=== PATIENT | female | born 1940 | race Hispanic/Latino ===

== ENCOUNTER 2020-10-07 11:30 | Inpatient (IN) | payer MEDICARE ==
[2020-10-07 12:50] LABS: #Eosinphils 0.1 thou/uL (0.0-0.7); #Lymphocytes 0.5 thou/uL (1.20-3.40); #Monocytes 0.5 thou/uL (0.11-0.59); #Neutrophils 10.6 thou/uL (1.40-6.50); %Basophils 0.1 % (0.0-1.0); %Eosinophils 0.4 % (0.0-10.0); %Lymphocytes 4.2 % (21.0-51.0); %Monocytes 4.7 % (0.0-10.0); %Neutrophils 90.6 % (42.0-75.0); Hemoglobin 12.8 g/dL (12.0-16.0); Mean Corpuscular Hemoglobin 28.3 pg (27.0-31.0); Mean Corpuscular Volume 88.4 fL (78.0-98.0); Mean Platelet Volume 7.5 fL (7.4-10.4); Platelet Count 241 thou/uL (130-400); RBC Distribution Width 12.4 % (11.5-14.5); Red Blood Cell (RBC) Count 4.51 mill/uL (4.20-5.40); White Blood Cell (WBC) Count 11.7 thou/uL (4.8-10.8)
[2020-10-07 13:03] LABS: ALT (SGPT) 11 U/L (8-55); AST (SGOT) 30 U/L (5-34); Albumin 3.1 g/dL (3.4-4.8); Alkaline Phosphatase 52 U/L (40-110); Anion Gap 14 mmol/L (10-20); BUN (Urea Nitrogen) 8 mg/dL (9.8-20.1); Calc. Creatinine Clearance 0 mL/min (70-130); Calcium 8.6 mg/dL (7.8-10.44); Carbon Dioxide 25 mmol/L (23-31); Chloride 98 mmol/L (98-107); Globulin 3.8 g/dL (2.4-3.5); Glucose 197 mg/dL (83-110); Magnesium 1.9 mg/dL (1.6-2.6); Potassium 3.5 mmol/L (3.5-5.1); Protein, Total 6.9 g/dL (6.0-8.3); Sodium 133 mmol/L (136-145)
--- NOTE | 2020-10-07 13:08 | RAD ---
XR Chest 1 View Portable History: Cough Comparison: Radiograph 2014 Findings: Extensive peripheral and perihilar airspace opacities. No pneumothorax. Heart size upper li mits of normal. No acute osseous abnormality. Impression: Commonly report imaging findings of high-grade Covid-19 pneumonia.
[2020-10-07] MEDS ORDERED: Azithromycin 500 MG VIAL ONE (13:44)
[2020-10-07] MEDS ORDERED: Acetaminophen 325 MG TAB ONE (13:44)
[2020-10-07] MEDS ORDERED: cefTRIAXone\\ROCEPHIN 2 GM VIAL ONE (13:44)
[2020-10-07] MEDS ORDERED: Dexamethasone 10 MG/ML VIAL ONE (15:16)
[2020-10-07 15:39] LABS: Lactic Acid 1.2 mmol/L (0.5-2.2)
--- NOTE | 2020-10-07 16:03 | PDOC.HHP ---
Hospitalist HPI - History of Present Illness Covid, fatigue, shortness of breath History of Present Illness: The patient is a 80-year-old female who presented via the emergency department. Patient reports that she started feeling some mild headache and malaise in early August. She said she got tested and was initially negative but when her symptoms persisted she rechecked again on August 29 and was positive. She has been feeling ill since that time and has progressed somewhat. She has lost her taste and smell. She has had very poor appetite. She continues to have significant malaise and lethargy. She has shortness of breath and persistent low-grade fever. She reports she has felt better since being placed on the oxygen in the emergency department. Patient reports that she did see [facility] last week and was placed on a steroid taper and a azithromycin pack. She could not tell that it made any difference for her at all. ED Course: In the emergency department the patient was mildly tachycardic. Her O2 sat was 91% on room air she was subsequently placed on nasal cannula oxygen and her O2 sat was 95% and her pulse was 108. She received 2 g of Rocephin and azithromycin was also ordered although I have recommended that not be given. She also received 1 L of normal saline. Hospitalist ROS - Review of Systems Constitutional: reports: fever, weakness, malaise, other (Very poor appetite. Poor p.o. intake. She has been drinking water.). denies: chills, sweats Respiratory: reports: cough, dry, shortness of breath, SOB with excertion Cardiovascular: denies: chest pain, palpitations Gastrointestinal: reports: nausea. denies: vomiting, abdominal pain, diarrhea, constipation Genitourinary: denies: dysuria Neurological: reports: weakness All other systems reviewed; all pertinent +/- noted in HPI/Subj - Medication Medications: Olmesartan 40 mg p.o. daily Pravastatin 10 mg p.o. nightly Vitamin D3 2000 units p.o. daily Clonidine 0.1 mg p.o. twice daily Hospitalist History - Past Medical History Cardiac: reports: HTN, Hyperlipidemia - Past Surgical History Past Surgical History: reports: Cholecystectomy, Cataract Removal - Family History Family History: reports: cerebrovascular accident (Father) - Social History Smoking Status: Never smoker Alcohol: reports: None Drugs: reports: none Living Situation: With Family Other Social History: Full code. Her would be her surrogate decision maker should that be necessary. - Exam General Appearance: NAD, ill appearing (Modestly) Heart: RRR, no murmur, no gallops, no rubs, normal peripheral pulses Respiratory: no wheezes, no rales Respiratory - other findings: Harsh bibasilar rhonchi Gastrointestinal: soft, non-tender, non-distended, normal bowel sounds, no palpable masses Extremities: no cyanosis, no clubbing, no edema Skin: tenting (Very mild) Musculoskeletal: normal tone, generalized weakness Psychiatric: normal affect, normal behavior, A&O x 3 Hospitalist Results - Labs Result Diagrams: 10/07/20 12:25 10/07/20 12:25 Lab results: WBC 11.7 thou/uL (4.8-10.8) H 10/07/20 12:25 Hgb 12.8 g/dL (12.0-16.0) 10/07/20 12:25 Hct 39.9 % (36.0-47.0) 10/07/20 12:25 MCV 88.4 fL (78.0-98.0) 10/07/20 12:25 Plt Count 241 thou/uL (130-400) 10/07/20 12:25 Neutrophils % 90.6 % (42.0-75.0) H 10/07/20 12:25 Sodium 133 mmol/L (136-145) L 10/07/20 12:25 Potassium 3.5 mmol/L (3.5-5.1) 10/07/20 12:25 Chloride 98 mmol/L (98-107) 10/07/20 12:25 Carbon Dioxide 25 mmol/L (23-31) 10/07/20 12:25 BUN 8 mg/dL (9.8-20.1) L 10/07/20 12:25 Creatinine 0.70 mg/dL (0.6-1.1) 10/07/20 12:25 Glucose 197 mg/dL (83-110) H 10/07/20 12:25 Lactic Acid 1.2 mmol/L (0.5-2.2) 10/07/20 15:14 Calcium 8.6 mg/dL (7.8-10.44) 10/07/20 12:25 Total Bilirubin 1.0 mg/dL (0.2-1.2) 10/07/20 12:25 AST 30 U/L (5-34) 10/07/20 12:25 ALT 11 U/L (8-55) 10/07/20 12:25 Alkaline Phosphatase 52 U/L (40-110) 10/07/20 12:25 Troponin I 0.014 ng/mL (< 0.028) 10/07/20 12:25 Serum Total Protein 6.9 g/dL (6.0-8.3) 10/07/20 12:25 Albumin 3.1 g/dL (3.4-4.8) L 10/07/20 12:25 - Radiology Interpretation Chest x-ray Status: image reviewed by me, report reviewed by me (Typical Covid findings with peripheral infiltrates bilaterally) Hospitalist H&P A/P - Problem (1) Acute respiratory failure with hypoxia Code(s): J96.01 - ACUTE RESPIRATORY FAILURE WITH HYPOXIA Status: Acute (2) Pneumonia due to COVID-19 virus Code(s): U07.1 - COVID-19; J12.82 - PNEUMONIA DUE TO CORONAVIRUS DISEASE 2019 Status: Acute (3) Dysgeusia Code(s): R43.2 - PARAGEUSIA Status: Acute (4) Hypertension Code(s): I10 - ESSENTIAL (PRIMARY) HYPERTENSION Status: Acute (5) Hyperlipidemia Code(s): E78.5 - HYPERLIPIDEMIA, UNSPECIFIED Status: Acute - Plan Plan: Acute hypoxic respiratory failure secondary to COVID-19 pneumonia: Patient will be on supplemental oxygen. She is borderline for needing significant supplementation while at rest. Once the patient is on the floor will be able to ambulate her a bit and see what her numbers do. Continue Decadron 6 mg daily. Vitamin C, vitamin D, zinc. Was patient is 5 weeks past her positive test. Will check with ID regarding isolation. Given the fairly harsh findings of the rales in the bases of her lungs I am worried about possible pulmonary fibrosis. We will obtain CT of the chest without contrast. Follow inflammatory markers. Hypertension: Continue with her usual olmesartan and clonidine. Hyperlipidemia: Continue with pravastatin. DVT prophylaxis: Lovenox PUD prophylaxis: Given that she will be on the steroids will cover with PPI.
[2020-10-07] MEDS ORDERED: Albuterol 200 PUFF (6.7GM INHALER) INH PRN (16:11)
[2020-10-07 16:13] VITALS: BMI 23.7
[2020-10-07] MEDS: Sodium Chloride 0.9% 1,000 ML IV SCH (16:44)
[2020-10-07] MEDS ORDERED: Atorvastatin Calcium 10 MG TAB PO SCH (21:00)
[2020-10-07] MEDS: cloNIDine 0.1 MG TAB PO SCH (21:19)
[2020-10-08] MEDS: Cholecalciferol 1,000 UNITS (25 MCG) TAB PO SCH (08:13)
[2020-10-08] MEDS: Sodium Chloride 0.9% 1,000 ML IV SCH (08:13)
[2020-10-08] MEDS: cloNIDine 0.1 MG TAB PO SCH ×2 (08:13→20:57)
[2020-10-08] MEDS: Zinc Sulfate 220 MG CAP PO SCH (08:13)
[2020-10-08 08:17] LABS: #Lymphocytes 0.6 thou/uL (1.20-3.40); #Monocytes 0.5 thou/uL (0.11-0.59); #Neutrophils 6.9 thou/uL (1.40-6.50); %Basophils 0.1 % (0.0-1.0); %Eosinophils 0.1 % (0.0-10.0); %Lymphocytes 7.7 % (21.0-51.0); %Monocytes 5.8 % (0.0-10.0); %Neutrophils 86.4 % (42.0-75.0); Hemoglobin 11.5 g/dL (12.0-16.0); Mean Corpuscular HGB CONC 32.6 g/dL (32.0-36.0); Mean Corpuscular Hemoglobin 28.9 pg (27.0-31.0); Mean Corpuscular Volume 88.9 fL (78.0-98.0); Mean Platelet Volume 7.2 fL (7.4-10.4); Platelet Count 236 thou/uL (130-400); RBC Distribution Width 12.3 % (11.5-14.5); Red Blood Cell (RBC) Count 3.98 mill/uL (4.20-5.40)
[2020-10-08] MEDS: Losartan 25 MG TAB PO SCH (08:18)
[2020-10-08 08:35] LABS: Anion Gap 12 mmol/L (10-20); BUN (Urea Nitrogen) 10 mg/dL (9.8-20.1); Calc. Creatinine Clearance 77 mL/min (70-130); Calcium 8.3 mg/dL (7.8-10.44); Carbon Dioxide 24 mmol/L (23-31); Chloride 106 mmol/L (98-107); Glucose 129 mg/dL (83-110); Potassium 3.9 mmol/L (3.5-5.1); Sodium 138 mmol/L (136-145)
[2020-10-08] MEDS: Dexamethasone 6 MG in Sodium Chloride 0.9% 50 ML IVPB SCH (08:41)
[2020-10-08] MEDS ORDERED: hydrALAZINE 20 MG/ML VIAL SLOW IVP PRN (08:52)
[2020-10-08] MEDS ORDERED: Cepastat Lozenges 1 LOZ PO PRN (08:52)
[2020-10-08] MEDS ORDERED: Loratadine 10 MG TAB PO PRN (08:52)
[2020-10-08] MEDS ORDERED: Loperamide HCl 2 MG CAP PO PRN (08:52)
[2020-10-08] MEDS ORDERED: Sodium Chloride 0.65% Nasal 44 ML BOT EA NARE PRN (08:52)
[2020-10-08] MEDS ORDERED: GUAIFENESIN SF SOLN 200 MG/10 ML UDCUP PO PRN (08:52)
[2020-10-08] MEDS ORDERED: Ondansetron ODT 4 MG TAB PO PRN (08:52)
[2020-10-08] MEDS ORDERED: Ondansetron PF 4 MG/2 ML Vial IVP PRN (08:52)
[2020-10-08] MEDS ORDERED: Benzonatate 100 MG CAP PO PRN (08:52)
[2020-10-08] MEDS ORDERED: HYDROcodone/Acetaminophen 5/325 mg Tablet PO PRN (08:52)
[2020-10-08] MEDS ORDERED: Calcium Carbonate 500 MG ChewTAB PO PRN (08:52)
[2020-10-08] MEDS ORDERED: Bisacodyl 10 MG SUPP PR PRN (08:52)
[2020-10-08] MEDS ORDERED: Enoxaparin Sodium 40 MG/0.4 ML SYRINGE SC SCH ×2 (09:00→21:00)
[2020-10-08] MEDS ORDERED: Losartan 25 MG TAB PO SCH (09:00)
[2020-10-08] MEDS ORDERED: Ascorbic Acid 500 mg Chewable Tablet PO SCH (09:00)
[2020-10-08] MEDS ORDERED: Olmesartan 5 MG TAB PO SCH (09:00)
[2020-10-08] MEDS ORDERED: FLU VACC QS2020-21(65YR UP)/PF 240 MCG/0.7 ML SYRINGE IM ONE (09:00)
[2020-10-08] MEDS: Ascorbic Acid 500 mg Chewable Tablet PO SCH (09:01)
--- NOTE | 2020-10-08 11:51 | PDOC.HOSPP ---
- Subjective Encounter Date: 10/08/20 Encounter Time: 08:15 Subjective: Patient seen and examined bedside today, no overnight event, patient has subjective feeling weak and tired, - Objective Vital Signs & Weight: Vital Signs (12 hours) Temp Pulse Resp BP BP Pulse Ox 10/08/20 11:41 98.4 F 62 16 153/79 H 95 10/08/20 08:13 165/82 H 10/08/20 07:32 98.0 F 76 18 145/73 H 94 L Weight Weight 134 lb I&O: 10/07/20 10/08/20 10/09/20 06:59 06:59 06:59 Intake Total 540 240 Balance 540 240 Result Diagrams: 10/08/20 07:39 10/08/20 07:39 Radiology Reviewed by me: Yes EKG Reviewed by me: Yes Hospitalist ROS - Review of Systems Constitutional: reports: weakness, malaise Respiratory: reports: shortness of breath, SOB with excertion. denies: cough, dry, hemoptysis, pleuritic pain, sputum, wheezing, other Cardiovascular: denies: chest pain, palpitations, orthopnea, paroxysmal noc. dyspnea, edema, light headedness, other Gastrointestinal: denies: nausea, vomiting, abdominal pain, diarrhea, constipat ion, melena, hematochezia, other Genitourinary: denies: dysuria, frequency, incontinence, hematuria, retention, other Musculoskeletal: denies: neck pain, shoulder pain, arm pain, back pain, hand pain, leg pain, foot pain, other Skin: denies: rash, lesions, kobe, bruising, other - Medication Medications: Active Medications Generic Name Dose Route Start Last Admin Trade Name Marekq PRN Reason Stop Dose Admin Ascorbic Acid 1,000 mg 10/08/20 09:00 10/08/20 09:01 Ascorbic Acid 500 Mg Chewable Tablet PO Not Given DAILY MAY Cholecalciferol 1,000 units 10/08/20 09:00 10/08/20 08:13 Cholecalciferol 1,000 Units (25 Mcg) Tab PO 1,000 units DAILY MAY Administration Clonidine 0.1 mg 10/07/20 21:00 10/08/20 08:13 Clonidine 0.1 Mg Tab PO 0.1 mg BID MAY Administration Enoxaparin Sodium 40 mg 10/08/20 09:00 10/08/20 08:13 Enoxaparin Sodium 40 Mg/0.4 Ml Syringe SC 40 mg 0900 MAY Administration Dexamethasone 6 mg/ Sodium 50.6 mls @ 100 mls/hr 10/08/20 09:00 10/08/20 08:41 Chloride IVPB 50.6 mls DAILY MAY Administration Losartan Potassium 100 mg 10/08/20 09:00 10/08/20 08:18 Losartan 25 Mg Tab PO 100 mg DAILY MAY Administration Pantoprazole Sodium 40 mg 10/08/20 09:00 10/08/20 08:13 Pantoprazole 40 Mg Tab PO 40 mg DAILY MAY Administration Zinc Sulfate 220 mg 10/08/20 09:00 10/08/20 08:13 Zinc Sulfate 220 Mg Cap PO 220 mg DAILY MAY Administration - Exam General Appearance: NAD, awake alert Eye: PERRL, anicteric sclera ENT: normocephalic atraumatic, no oropharyngeal lesions Neck: supple, symmetric, no JVD, no thyromegaly Heart: RRR, no murmur, no gallops, no rubs Respiratory: no wheezes, no rales, no ronchi Respiratory - other findings: Bilateral coarse breath sound, Gastrointestinal: soft, non-tender, non-distended, normal bowel sounds Extremities: no cyanosis, no clubbing, no edema Skin: normal turgor, no lesions Neurological: no focal deficits Musculoskeletal: normal tone, normal strength Psychiatric: normal affect, normal behavior Hosp A/P (1) Pneumonia due to COVID-19 virus Code(s): U07.1 - COVID-19; J12.82 - PNEUMONIA DUE TO CORONAVIRUS DISEASE 2019 Status: Acute (2) Acute respiratory failure with hypoxia Code(s): J96.01 - ACUTE RESPIRATORY FAILURE WITH HYPOXIA Status: Acute (3) Elevated d-dimer Code(s): R79.89 - OTHER SPECIFIED ABNORMAL FINDINGS OF BLOOD CHEMISTRY Status: Acute (4) Hyperlipidemia Code(s): E78.5 - HYPERLIPIDEMIA, UNSPECIFIED Status: Chronic (5) Hypertension Code(s): I10 - ESSENTIAL (PRIMARY) HYPERTENSION Status: Chronic - Plan old records reviewed/req, respiratory therapy, DVT proph w/lovenox Patient has significantly elevated D-dimer, will obtain CT angio chest to rule out thromboembolic disorder, will increase Lovenox 40 mg subcu twice daily, change to inpatient status, discontinue IV fluid, continue dexamethasone, I have reconciled her home medication, I have discussed with the patient that she needs to ambulate in her room and we need to do oxygen challenge test, patient is not a candidate for remdesivir therapy because of long duration of illness, continue vitamin supplementation, monitor inflammatory markers
--- NOTE | 2020-10-08 12:34 | CT ---
CT ANGIOGRAM THORAX WITH IV CONTRAST AND 3-D RECONSTRUCTIONS CLINICAL INDICATION: Hypoxia, shortness of breath. Covid positive. COMPARISON: None FINDINGS: Pulmonary arteries: No filling defects are seen in the pulmonary arteries to suggest a pulmonary embo naila. Aorta: Vascular calcifications are seen in thoracic aorta. The thoracic aorta is normal in caliber wi thout evidence of an aortic dissection. Lungs: There are diffuse scattered groundglass densities with coalescence of groundglass densities se en throughout the lungs bilaterally most suggestive of viral pneumonitis such as Covid 19. Trace pleural effusions versus pleural thickening are seen posteriorly. Visualized large airways appear pat ent. Mediastinum: The heart is mildly enlarged. Coronary artery calcifications are seen. There are mildly prominent lymph nodes seen within the mediastinum with largest lymph node seen in a precarinal location measuring 1 cm in short axis dimension which are overall nonspecific but may be reactive in origin. Calcified subcarinal lymph node is seen. Thyroid gland: Artifact through level of thyroid gland limits assessment, but no thyroid nodule is ap preciated involving the visualized thyroid gland. Osseous structures: Degenerative changes noted in the spine. No suspicious lytic or sclerotic osseous lesion is seen. Chest wall: No abnormality visualized. Upper abdomen: There is mild dilatation of the extrahepatic common duct likely related to reservoir e ffect secondary to reported history of prior cholecystectomy. IMPRESSION: 1. Covid pneumonia. 2. Trace bilateral pleural effusions versus pleural thickening. 3. Mild cardiomegaly. 4. No CT evidence of a pulmonary embolus.
[2020-10-08] MEDS ORDERED: Iopamidol-370 76% 500 ML 1 ML ONE (14:06)
[2020-10-08] MEDS: Atorvastatin Calcium 10 MG TAB PO SCH (20:58)
[2020-10-09] MEDS: Dexamethasone 6 MG in Sodium Chloride 0.9% 50 ML IVPB SCH (08:10)
[2020-10-09] MEDS: Losartan 25 MG TAB PO SCH (08:13)
[2020-10-09] MEDS: cloNIDine 0.1 MG TAB PO SCH ×2 (08:13→20:49)
[2020-10-09] MEDS: Ascorbic Acid 500 mg Chewable Tablet PO SCH (08:14)
[2020-10-09] MEDS: Zinc Sulfate 220 MG CAP PO SCH (08:14)
[2020-10-09] MEDS: Cholecalciferol 1,000 UNITS (25 MCG) TAB PO SCH (08:14)
[2020-10-09] MEDS ORDERED: Apixaban 5 MG TAB PO SCH (09:00)
--- NOTE | 2020-10-09 11:00 | PDOC.HOSPP ---
- Subjective Encounter Date: 10/09/20 Encounter Time: 08:35 Subjective: Patient seen and examined. No new complaints. No overnight events - Objective Vital Signs & Weight: Vital Signs (12 hours) Temp Pulse Resp BP BP Pulse Ox 10/09/20 08:13 141/63 H 10/09/20 07:46 100 10/09/20 07:40 97.8 F 54 L 16 141/63 H 100 10/09/20 04:00 97.8 F 52 L 18 149/71 H 97 10/09/20 00:00 98.0 F 75 18 169/81 H 92 L Weight Weight 134 lb I&O: 10/08/20 10/09/20 10/10/20 06:59 06:59 06:59 Intake Total 540 1370 Balance 540 1370 Result Diagrams: 10/08/20 07:39 10/08/20 07:39 Hospitalist ROS - Review of Systems Constitutional: reports: weakness, malaise. denies: fever, chills, sweats, other ENT: denies: ear pain, ear discharge, nose pain, nose discharge, nose congestion, mouth pain, mouth swelling, throat pain, throat swelling, other Respiratory: reports: SOB with excertion. denies: cough, dry, shortness of breath, hemoptysis, pleuritic pain, sputum, wheezing, other Cardiovascular: denies: chest pain, palpitations, orthopnea, paroxysmal noc. dyspnea, edema, light headedness, other Gastrointestinal: denies: nausea, vomiting, abdominal pain, diarrhea, constipation, melena, hematochezia, other Genitourinary: denies: dysuria, frequency, incontinence, hematuria, retention, other Musculoskeletal: denies: neck pain, shoulder pain, arm pain, back pain, hand pain, leg pain, foot pain, other Skin: denies: rash, lesions, kobe, bruising, other - Medication Medications: Active Medications Generic Name Dose Route Start Last Admin Trade Name Freq PRN Reason Stop Dose Admin Ascorbic Acid 1,000 mg 10/08/20 09:00 10/09/20 08:14 Ascorbic Acid 500 Mg Chewable Tablet PO 1,000 mg DAILY MAY Administration Atorvastatin Calcium 10 mg 10/08/20 21:00 10/08/20 20:58 Atorvastatin Calcium 10 Mg Tab PO 10 mg HS MAY Administration Cholecalciferol 1,000 units 10/08/20 09:00 10/09/20 08:14 Cholecalciferol 1,000 Units (25 Mcg) Tab PO 1,000 units DAILY MAY Administration Clonidine 0.1 mg 10/07/20 21:00 10/09/20 08:13 Clonidine 0.1 Mg Tab PO 0.1 mg BID MAY Administration Dexamethasone 6 mg/ Sodium 50.6 mls @ 100 mls/hr 10/08/20 09:00 10/09/20 08:10 Chloride IVPB 50.6 mls DAILY MAY Administration Losartan Potassium 100 mg 10/08/20 09:00 10/09/20 08:13 Losartan 25 Mg Tab PO 100 mg DAILY MAY Administration Pantoprazole Sodium 40 mg 10/08/20 09:00 10/09/20 08:14 Pantoprazole 40 Mg Tab PO 40 mg DAILY MAY Administration Zinc Sulfate 220 mg 10/08/20 09:00 10/09/20 08:14 Zinc Sulfate 220 Mg Cap PO 220 mg DAILY MAY Administration - Exam General Appearance: NAD, awake alert Eye: PERRL, anicteric sclera ENT: normocephalic atraumatic, no oropharyngeal lesions Neck: supple, symmetric, no JVD, no thyromegaly Heart: RRR, no murmur, no gallops, no rubs Respiratory: no wheezes, no rales, no ronchi Gastrointestinal: soft, non-tender, non-distended, normal bowel sounds Extremities: no cyanosis, no clubbing, no edema Skin: normal turgor, no lesions Neurological: no focal deficits Musculoskeletal: normal tone, normal strength Psychiatric: normal affect, normal behavior Hosp A/P (1) Pneumonia due to COVID-19 virus Code(s): U07.1 - COVID-19; J12.82 - PNEUMONIA DUE TO CORONAVIRUS DISEASE 2019 Status: Acute (2) Acute respiratory failure with hypoxia Code(s): J96.01 - ACUTE RESPIRATORY FAILURE WITH HYPOXIA Status: Acute (3) Elevated d-dimer Code(s): R79.89 - OTHER SPECIFIED ABNORMAL FINDINGS OF BLOOD CHEMISTRY Status: Acute (4) Hyperlipidemia Code(s): E78.5 - HYPERLIPIDEMIA, UNSPECIFIED Status: Chronic (5) Hypertension Code(s): I10 - ESSENTIAL (PRIMARY) HYPERTENSION Status: Chronic - Plan old records reviewed/req, respiratory therapy CT angio negative for PE, because of elevated D-dimer we will start Eliquis 2.5 mg twice daily for 1 month, patient needs oxygen because of her oxygen saturation drops to 85% after exertion, will consult case briefer for oxygen arrangement, Patient is subjectively feeling weak, continue vitamin supplementation, continue dexamethasone, continue symptomatic treatment,
[2020-10-09] MEDS: Atorvastatin Calcium 10 MG TAB PO SCH (20:49)
[2020-10-09] MEDS: Apixaban 2.5 MG TAB PO SCH (20:49)
[2020-10-10] MEDS: Losartan 25 MG TAB PO SCH (08:15)
[2020-10-10] MEDS: Apixaban 2.5 MG TAB PO SCH ×2 (08:15→20:04)
[2020-10-10] MEDS: cloNIDine 0.1 MG TAB PO SCH ×2 (08:15→20:04)
[2020-10-10] MEDS: Ascorbic Acid 500 mg Chewable Tablet PO SCH (08:15)
[2020-10-10] MEDS: Zinc Sulfate 220 MG CAP PO SCH (08:16)
[2020-10-10] MEDS: Cholecalciferol 1,000 UNITS (25 MCG) TAB PO SCH (08:16)
[2020-10-10] MEDS: Dexamethasone 6 MG in Sodium Chloride 0.9% 50 ML IVPB SCH (08:16)
--- NOTE | 2020-10-10 10:57 | PDOC.DS.DS ---
Provider - Provider Date of Admission: 10/07/20 16:02 Admitting Provider: Edgardo Damian MD Consultations: Pulmonary, Other Primary Care Physician: Diego Yi DO Course - Hospital Course Hospital Course: History on admission- The patient is a 80-year-old female who presented via the emergency department. Patient reports that she started feeling some mild headache and malaise in early August. She said she got tested and was initially negative but when her symptoms persisted she rechecked again on August 29 and was positive. She has been feeling ill since that time and has progressed somewhat. She has lost her taste and smell. She has had very poor appetite. She continues to have significant malaise and lethargy. She has shortness of breath and persistent low-grade fever. She reports she has felt better since being placed on the oxygen in the emergency department. Patient reports that she did see [facility] last week and was placed on a steroid taper and a azithromycin pack. She could not tell that it made any difference for her at all. ED Course: In the emergency department the patient was mildly tachycardic. Her O2 sat was 91% on room air she was subsequently placed on nasal cannula oxygen and her O2 sat was 95% and her pulse was 108. She received 2 g of Rocephin and azithromycin was also ordered although I have recommended that not be given. She also received 1 L of normal saline. On admission patient had significantly elevated D-dimer, so we did a CT angiography which was negative for PE but did showing bilateral infiltration consistent with Covid pneumonia, we started Eliquis therapy to prevent thromboe mbolic for her, patient was not qualified for remdesivir therapy based on her symptoms onset, we treated her with vitamin supplementation, dexamethasone, While in hospital we did oxygen challenge test and she was qualified for home oxygen, with help of employment case manager we arranged home oxygen on discharge, we have also provided Eliquis for at least 1 month to prevent thromboembolic event in view of inflammatory status due to Covid, patient will continue vitamin supplementation and dexamethasone to finish for total 10 days. Patient was plan for discharge and on the same day she had her condition started deteriorating, her oxygen saturation was not maintained with 3 L nasal cannula oxygen so we canceled her discharge, we observed overnight in next day and during nighttime patient developed high fever, she was requiring high flow oxygen, her condition rapidly deteriorated, Patient was not maintaining her oxygen saturations with high flow oxygen as well as she was tachycardic and tachypneic so we transferred her to [facility], we started on BiPAP, we did chest x-ray which showed Covid pneumonia, she has leukocytosis, patient was started on antibiotic as well as Lasix, Patient was not tolerating BiPAP so patient decided herself to be a DNR, patient was kept on high flow but with high flow oxygen herself oxygen saturation was not maintained, and patient was not tolerating BiPAP, Resuscitation Status: 10/07/20 15:27 Resuscitation Status Routine Resuscitation Status: FULL: Full Resuscitation - Labs Lab Results: 10/08/20 07:39 10/08/20 07:39 Abnormal Lab Results - Last 48 hrs 10/08/20 13:29: D-Dimer 14.45 H 10/08/20 14:57: C-Reactive Protein 12.71 H Microbiology - Entire Visit 10/07/20 13:25 Venous blood - Right Arm Blood Culture - Preliminary NO GROWTH AT 48 HOURS 10/07/20 13:25 Venous blood - Right Arm Blood Culture - Preliminary NO GROWTH AT 48 HOURS - Diagnostic Interpretation Other Additional comments: Chest x-ray on admission showed high-grade COVID-[address] angiography showed no evidence of pulmonary embolism but it did show bilateral pleural effusion and Covid pneumonia - Physical Exam Vitals: Vital Signs (12 hours) Temp Pulse Resp BP BP Pulse Ox 10/10/20 08:15 141/63 H 10/10/20 07:09 97.8 F 52 L 15 158/53 H 94 L 10/10/20 04:59 97.6 F 63 18 166/78 H 96 10/10/20 04:00 97.6 F 63 18 166/78 H 96 10/10/20 01:03 98.1 F 60 18 160/76 H 96 10/10/20 00:00 98.1 F 60 18 160/76 H 96 Weight Weight 134 lb Physical Exam: The patient was seen and examined on the day of discharge. Problem - Problem (1) Pneumonia due to COVID-19 virus Code(s): U07.1 - COVID-19; J12.82 - PNEUMONIA DUE TO CORONAVIRUS DISEASE 2019 Status: Acute (2) Acute respiratory failure with hypoxia Code(s): J96.01 - ACUTE RESPIRATORY FAILURE WITH HYPOXIA Status: Acute (3) Elevated d-dimer Code(s): R79.89 - OTHER SPECIFIED ABNORMAL FINDINGS OF BLOOD CHEMISTRY Status: Acute (4) Hyperlipidemia Code(s): E78.5 - HYPERLIPIDEMIA, UNSPECIFIED Status: Chronic (5) Hypertension Code(s): I10 - ESSENTIAL (PRIMARY) HYPERTENSION Status: Chronic Qualifiers: Hypertension type: essential hypertension Qualified Code(s): I10 - Essenti al (primary) hypertension Plan - Discharge Medications Prescriptions: Albuterol Sulfate [Proventil Hfa] 2 puff INH [id number] PRN #1 aer PRN Reason: Wheezing Dexamethasone 6 mg PO DAILY #7 tablet Apixaban [Eliquis] 2.5 mg PO BID #60 tab Benzonatate [Tessalon] 100 mg PO Q6H PRN #30 cap PRN Reason: Cough Ascorbic Acid [Vitamin C] 1,000 mg PO DAILY #30 tab Zinc Sulfate 220 mg PO DAILY #14 cap Home Medications: Medication Instructions Recorded Confirmed Type Cholecalciferol (Vitamin D3) 1 tab PO DAILY 10/07/20 10/07/20 History [Vitamin D3] Olmesartan Medoxomil [Benicar] 1 tab PO DAILY 10/07/20 10/07/20 History Pravastatin Sodium [Pravachol] 1 tab PO DAILY 10/07/20 10/07/20 History cloNIDine HCl 1 tab PO BID 10/07/20 10/07/20 History Albuterol Sulfate [Proventil Hfa] 2 puff INH [id number] PRN #1 aer 10/09/20 Rx Apixaban [Eliquis] 2.5 mg PO BID #60 tab 10/09/20 Rx Ascorbic Acid [Vitamin C] 1,000 mg PO DAILY #30 tab 10/09/20 Rx Benzonatate [Tessalon] 100 mg PO Q6H PRN #30 cap 10/09/20 Rx Dexamethasone 6 mg PO DAILY #7 tablet 10/09/20 Rx Zinc Sulfate 220 mg PO DAILY #14 cap 10/09/20 Rx Allergies: No Known Allergies Allergy (Verified 10/07/20 16:19) - Discharge Instructions Discharge Instructions:: YOUR PRESCRIPTIONS WERE SENT TO: [facility] [address] [place] [id number] Activity:: Activity as Tolerated Nourishment:: Heart Healthy Diet Therapies:: Not Applicable Equipment/Supplies:: Oxygen IV Therapy:: Not Applicable - Follow up Plan Referrals: [facility] [Outside] Davon Yi DO [Primary Care Provider] - Disposition: HOME Quality - Care Measures CORE MEASURES:: N/A
--- NOTE | 2020-10-10 12:56 | PDOC.HOSPP ---
- Subjective Encounter Date: 10/10/20 Encounter Time: 12:55 Subjective: Patient seen and examined earlier this morning, patient was reevaluated this afternoon, patient did walk to bathroom and even after her 3 L oxygen patient started dropping her oxygen saturation to 85 and below, patient was taking longer than expected time to recover, patient was worried about going home with this condition, initially before the discharge order so because of her ongoing hypoxia we canceled her discharge, - Objective Vital Signs & Weight: Vital Signs (12 hours) Temp Pulse Resp BP BP Pulse Ox 10/10/20 08:15 141/63 H 10/10/20 07:09 97.8 F 52 L 15 158/53 H 94 L 10/10/20 04:59 97.6 F 63 18 166/78 H 96 10/10/20 04:00 97.6 F 63 18 166/78 H 96 10/10/20 01:03 98.1 F 60 18 160/76 H 96 Weight Weight 134 lb I&O: 10/09/20 10/10/20 10/11/20 06:59 06:59 06:59 Intake Total 1370 Balance 1370 Result Diagrams: 10/08/20 07:39 10/08/20 07:39 Hospitalist ROS - Review of Systems Constitutional: reports: weakness, malaise Eyes: denies: pain, vision change, conjunctivae inflammation, eyelid infla mmation, redness, other ENT: denies: ear pain, ear discharge, nose pain, nose discharge, nose congestion, mouth pain, mouth swelling, throat pain, throat swelling, other Respiratory: reports: shortness of breath, SOB with excertion. denies: cough, d ry, hemoptysis, pleuritic pain, sputum, wheezing, other Cardiovascular: denies: chest pain, palpitations, orthopnea, paroxysmal noc. dyspnea, edema, light headedness, other Gastrointestinal: denies: nausea, vomiting, abdominal pain, diarrhea, constip ation, melena, hematochezia, other Genitourinary: denies: dysuria, frequency, incontinence, hematuria, retention, other Musculoskeletal: denies: neck pain, shoulder pain, arm pain, back pain, hand pain, leg pain, foot pain, other - Medication Medications: Active Medications Generic Name Dose Route Start Last Admin Trade Name Freq PRN Reason Stop Dose Admin Apixaban 2.5 mg 10/09/20 21:00 10/10/20 08:15 Apixaban 2.5 Mg Tab PO 2.5 mg BID MAY Administration Ascorbic Acid 1,000 mg 10/08/20 09:00 10/10/20 08:15 Ascorbic Acid 500 Mg Chewable Tablet PO 1,000 mg DAILY MAY Administration Atorvastatin Calcium 10 mg 10/08/20 21:00 10/09/20 20:49 Atorvastatin Calcium 10 Mg Tab PO 10 mg HS MAY Administration Cholecalciferol 1,000 units 10/08/20 09:00 10/10/20 08:16 Cholecalciferol 1,000 Units (25 Mcg) Tab PO 1,000 units DAILY MAY Administration Clonidine 0.1 mg 10/07/20 21:00 10/10/20 08:15 Clonidine 0.1 Mg Tab PO 0.1 mg BID MAY Administration Dexamethasone 6 mg/ Sodium 50.6 mls @ 100 mls/hr 10/08/20 09:00 10/10/20 0 8:16 Chloride IVPB 50.6 mls DAILY MAY Administration Losartan Potassium 100 mg 10/08/20 09:00 10/10/20 08:15 Losartan 25 Mg Tab PO 100 mg DAILY MAY Administration Ondansetron HCl 4 mg 10/08/20 08:52 10/09/20 12:14 Ondansetron Odt 4 Mg Tab PO 4 mg Q6H PRN Administration Nausea/Vomiting Pantoprazole Sodium 40 mg 10/08/20 09:00 10/10/20 08:15 Pantoprazole 40 Mg Tab PO 40 mg DAILY MAY Administration Zinc Sulfate 220 mg 10/08/20 09:00 10/10/20 08:16 Zinc Sulfate 220 Mg Cap PO 220 mg DAILY MAY Administration - Exam General Appearance: NAD, awake alert Eye: PERRL, anicteric sclera ENT: normocephalic atraumatic, no oropharyngeal lesions Neck: supple, symmetric, no JVD, no thyromegaly Heart: RRR, no murmur, no gallops, no rubs Respiratory: no wheezes, no rales, no ronchi, no tachypnea Gastrointestinal: soft, non-tender, non-distended, normal bowel sounds Extremities: no cyanosis, no clubbing, no edema Skin: normal turgor, no lesions Neurological: no focal deficits Musculoskeletal: normal tone, normal strength Psychiatric: normal affect, normal behavior Hosp A/P (1) Pneumonia due to COVID-19 virus Code(s): U07.1 - COVID-19; J12.82 - PNEUMONIA DUE TO CORONAVIRUS DISEASE 2019 Status: Acute (2) Acute respiratory failure with hypoxia Code(s): J96.01 - ACUTE RESPIRATORY FAILURE WITH HYPOXIA Status: Acute (3) Elevated d-dimer Code(s): R79.89 - OTHER SPECIFIED ABNORMAL FINDINGS OF BLOOD CHEMISTRY Status: Acute (4) Hyperlipidemia Code(s): E78.5 - HYPERLIPIDEMIA, UNSPECIFIED Status: Chronic (5) Hypertension Code(s): I10 - ESSENTIAL (PRIMARY) HYPERTENSION Status: Chronic - Plan old records reviewed/req, respiratory therapy Continue Eliquis for prevention of thromboembolic disorder Continue dexamethasone Unfortunately patient's oxygen saturation started dropping even with 3 L oxygen, and patient is not feeling good enough to go home today again, We will continue to monitor,
[2020-10-10] MEDS: Atorvastatin Calcium 10 MG TAB PO SCH (20:04)
[2020-10-11] MEDS: Dexamethasone 6 MG in Sodium Chloride 0.9% 50 ML IVPB SCH (07:42)
[2020-10-11] MEDS: Zinc Sulfate 220 MG CAP PO SCH (07:42)
[2020-10-11] MEDS: Losartan 25 MG TAB PO SCH (07:43)
[2020-10-11] MEDS: Apixaban 2.5 MG TAB PO SCH ×2 (07:43→21:32)
[2020-10-11] MEDS: Ascorbic Acid 500 mg Chewable Tablet PO SCH (07:43)
[2020-10-11] MEDS: Cholecalciferol 1,000 UNITS (25 MCG) TAB PO SCH (07:43)
[2020-10-11] MEDS: Acetaminophen 325 MG TAB PO PRN (07:43)
[2020-10-11] MEDS: cloNIDine 0.1 MG TAB PO SCH ×2 (07:44→21:32)
[2020-10-11 09:13] LABS: Band 1 % (5-11); Hemoglobin 11.3 g/dL (12.0-16.0); Lymphocytes 6 % (21-51); MDiff Complete? YES; Mean Corpuscular HGB CONC 34.4 g/dL (32.0-36.0); Mean Corpuscular Hemoglobin 29.8 pg (27.0-31.0); Mean Corpuscular Volume 86.6 fL (78.0-98.0); Mean Platelet Volume 6.5 fL (7.4-10.4); Monocytes 1 % (0-10); Neutrophil 92 % (42-75); Platelet Count 233 thou/uL (130-400); RBC Distribution Width 12.6 % (11.5-14.5); White Blood Cell (WBC) Count 18.2 thou/uL (4.8-10.8)
[2020-10-11 09:21] LABS: ALT (SGPT) 16 U/L (8-55); AST (SGOT) 39 U/L (5-34); Albumin 2.6 g/dL (3.4-4.8); Alkaline Phosphatase 51 U/L (40-110); Anion Gap 14 mmol/L (10-20); BUN (Urea Nitrogen) 9 mg/dL (9.8-20.1); Bilirubin, Total 0.9 mg/dL (0.2-1.2); Calc. Creatinine Clearance 64 mL/min (70-130); Calcium 7.7 mg/dL (7.8-10.44); Carbon Dioxide 22 mmol/L (23-31); Chloride 101 mmol/L (98-107); Globulin 3.3 g/dL (2.4-3.5); Glucose 111 mg/dL (83-110); Potassium 3.9 mmol/L (3.5-5.1); Protein, Total 5.9 g/dL (6.0-8.3); Sodium 133 mmol/L (136-145)
--- NOTE | 2020-10-11 10:18 | PDOC.HOSPP ---
- Subjective Encounter Date: 10/11/20 Encounter Time: 08:45 Subjective: Last night whenever patient was exerting herself her oxygen saturation was dropping significantly, this was also happened yesterday so we have to cancel her discharge, this morning patient has a low oxygen saturation and requiring high flow oxygen and she has fever, patient is not feeling good today, patient has deterioration since yesterday, - Objective Vital Signs & Weight: Vital Signs (12 hours) Temp Pulse Resp BP BP Pulse Ox 10/11/20 09:48 93 L 10/11/20 08:00 100.1 F H 105 H 22 H 144/76 H 94 L 10/11/20 07:44 146/89 H 10/11/20 07:43 102.6 F H 10/11/20 07:07 102.2 F H 116 H 18 146/89 H 93 L 10/11/20 04:42 98.2 F 111 H 18 163/87 H 88 L 10/11/20 03:32 93 20 90 L 10/11/20 00:16 77 91 L 10/10/20 23:18 77 92 L Weight Weight 134 lb Result Diagrams: 10/11/20 08:48 10/11/20 08:48 Hospitalist ROS - Review of Systems Constitutional: reports: fever, weakness, malaise Eyes: denies: pain, vision change, conjunctivae inflammation, eyelid inflammation, redness, other ENT: denies: ear pain, ear discharge, nose pain, nose discharge, nose congestion, mouth pain, mouth swelling, throat pain, throat swelling, other Respiratory: reports: shortness of breath, SOB with excertion. denies: cough, dry, hemoptysis, pleuritic pain, sputum, wheezing, other Cardiovascular: denies: chest pain, palpitations, orthopnea, paroxysmal noc. dyspnea, edema, light headedness, other Gastrointestinal: denies: nausea, vomiting, abdominal pain, diarrhea, constipation, melena, hematochezia, other Genitourinary: denies: dysuria, frequency, incontinence, hematuria, retention, other Musculoskeletal: denies: neck pain, shoulder pain, arm pain, back pain, hand pain, leg pain, foot pain, other - Medication Medications: Active Medications Generic Name Dose Route Start Last Admin Trade Name Freq PRN Reason Stop Dose Admin Acetaminophen 650 mg 10/07/20 15:27 10/11/20 07:43 Acetaminophen 325 Mg Tab PO 650 mg Q4H PRN Administration Headache/Fever/Mild Pain (1-3) Apixaban 2.5 mg 10/09/20 21:00 10/11/20 07:43 Apixaban 2.5 Mg Tab PO 2.5 mg BID MAY Administration Ascorbic Acid 1,000 mg 10/08/20 09:00 10/11/20 07:43 Ascorbic Acid 500 Mg Chewable Tablet PO 1,000 mg DAILY MAY Administration Atorvastatin Calcium 10 mg 10/08/20 21:00 10/10/20 20:04 Atorvastatin Calcium 10 Mg Tab PO 10 mg HS MAY Administration Cholecalciferol 1,000 units 10/08/20 09:00 10/11/20 07:43 Cholecalciferol 1,000 Units (25 Mcg) Tab PO 1,000 units DAILY MAY Administration Clonidine 0.1 mg 10/07/20 21:00 10/11/20 07:44 Clonidine 0.1 Mg Tab PO 0.1 mg BID MAY Administration Dexamethasone 6 mg/ Sodium 50.6 mls @ 100 mls/hr 10/08/20 09:00 10/11/20 07:42 Chloride IVPB 50.6 mls DAILY MAY Administration Losartan Potassium 100 mg 10/08/20 09:00 10/11/20 07:43 Losartan 25 Mg Tab PO 100 mg DAILY MAY Administration Ondansetron HCl 4 mg 10/08/20 08:52 10/09/20 12:14 Ondansetron Odt 4 Mg Tab PO 4 mg Q6H PRN Administration Nausea/Vomiting Pantoprazole Sodium 40 mg 10/08/20 09:00 10/11/20 07:42 Pantoprazole 40 Mg Tab PO 40 mg DAILY MAY Administration Zinc Sulfate 220 mg 10/08/20 09:00 10/11/20 07:42 Zinc Sulfate 220 Mg Cap PO 220 mg DAILY MAY Administration - Exam General Appearance: NAD, awake alert Eye: PERRL, anicteric sclera ENT: normocephalic atraumatic, no oropharyngeal lesions Neck: supple, symmetric, no JVD, no thyromegaly Heart: RRR, no murmur, no gallops, no rubs Heart - other findings: Tachycardia Respiratory - other findings: Bilateral basal and scattered rales noted Gastrointestinal: soft, non-tender, non-distended, normal bowel sounds Extremities: no cyanosis, no clubbing, no edema Skin: normal turgor, no lesions Neurological: no focal deficits Musculoskeletal: normal tone, normal strength Psychiatric: normal affect, normal behavior Hosp A/P (1) Sepsis with acute organ dysfunction Code(s): A41.9 - SEPSIS, UNSPECIFIED ORGANISM; R65.20 - SEVERE SEPSIS WITHOUT SEPTIC SHOCK Status: Acute Qualifiers: Sepsis type: sepsis due to unspecified organism Severe sepsis acute organ dysfunction type: acute respiratory failure Acute respiratory failure type: with hypoxia Severe sepsis shock status: without septic shock Qualified Code(s): A41.9 - Sepsis, unspecified organism; R65.20 - Severe sepsis without septic shock; J96.01 - Acute respiratory failure with hypoxia (2) Acute respiratory failure with hypoxia Code(s): J96.01 - ACUTE RESPIRATORY FAILURE WITH HYPOXIA Status: Acute (3) Pneumonia due to COVID-19 virus Code(s): U07.1 - COVID-19; J12.82 - PNEUMONIA DUE TO CORONAVIRUS DISEASE 2019 Status: Acute (4) Elevated d-dimer Code(s): R79.89 - OTHER SPECIFIED ABNORMAL FINDINGS OF BLOOD CHEMISTRY Status: Acute (5) Hyperlipidemia Code(s): E78.5 - HYPERLIPIDEMIA, UNSPECIFIED Status: Chronic (6) Hypertension Code(s): I10 - ESSENTIAL (PRIMARY) HYPERTENSION Status: Chronic Qualifiers: Hypertension type: essential hypertension Qualified Code(s): I10 - Essential (primary) hypertension - Plan old records reviewed/req, continue antibiotics, respiratory therapy Patient is deteriorating, she is requiring high flow oxygen, Patient has sepsis criteria, we have started empiric antibiotic cefepime and azithromycin to cover bacterial superinfection, will check lactic acid and procalcitonin We will also check COVID-19 as well as COVID-19 IgG antibody, based on that result will consider convalescent plasma, unfortunately based on duration patient was not a candidate for remdesivir therapy, We will continue to monitor while in hospital, Medication reviewed and continue provide symptomatic and supportive care, continue vitamin supplementation, continue dexamethasone
[2020-10-11] MEDS: Cefepime 1 GM in Sodium Chloride 0.9% 100 ML IVPB SCH ×2 (10:52→19:48)
[2020-10-11] MEDS: Saccharomyces boulardii 250 MG CAP PO SCH (10:52)
[2020-10-11] MEDS: Azithromycin 500 MG in Sodium Chloride 0.9% 250 ML 250 ML IVPB SCH (10:53)
[2020-10-11 12:43] LABS: Bacteria/HPF None Seen HPF (None Seen); Bilirubin Negative (Negative); Blood, Urine Trace (Negative); Clarity Clear (Clear); Glucose, Urine (Dipstick) Normal (Negative); Ketone, Urine Negative (Negative); Leukocyte Negative Leu/uL (Negative); Nitrite Negative (Negative); Protein, Urine (Dipstick) 10 mg/dL (Neg-Trace); RBC/HPF 0-3 HPF (0-3); Specific Gravity, Urine 1.009 (1.002-1.036); Squamous Epithelial 0-3 HPF (0-3); WBC/HPF 0-3 HPF (0-3); pH, Urine 6.5 (5.0-9.0)
[2020-10-11 12:47] LABS: Urine Culture Reflex No No
[2020-10-11] MEDS ORDERED: Albuterol Sulfate 2.5 mg/3 ml Neb NEB SCH (13:00)
[2020-10-11] MEDS: Albuterol 200 PUFF (6.7GM INHALER) INH SCH ×2 (14:06→19:49)
--- NOTE | 2020-10-11 14:21 | EKG ---
Test Reason : Blood Pressure : / mmHG Vent. Rate : 104 BPM Atrial Rate : 104 BPM P-R Int : 140 ms QRS Dur : 080 ms QT Int : 304 ms P-R-T Axes : 021 -12 033 degrees QTc Int : 399 ms Sinus tachycardia Septal infarct , age undetermined Abnormal ECG Confirmed by PATRICIA FU DO ([id number]), production editor OLEGARIO YOUNG ([id number]) on 10/11/2020 2:20:43 PM Referred By: Confirmed By:PATRICIA FU DO
[2020-10-11 15:56] LABS: SARS-CoV-2 PCR by NAA DETECTED (NotDetected)
[2020-10-11 18:13] LABS: SARS-CoV-2 IgG Ab Reactive (NonReactive); SARS-CoV-2 IgG Index 6.89 S/CO (< 1.40)
[2020-10-11] MEDS: Atorvastatin Calcium 10 MG TAB PO SCH (21:32)
[2020-10-12] MEDS: Albuterol 200 PUFF (6.7GM INHALER) INH SCH ×4 (02:27→18:06)
[2020-10-12] MEDS: Apixaban 2.5 MG TAB PO SCH (08:38)
[2020-10-12] MEDS: Zinc Sulfate 220 MG CAP PO SCH (08:38)
[2020-10-12] MEDS: Saccharomyces boulardii 250 MG CAP PO SCH (08:38)
[2020-10-12] MEDS: Ascorbic Acid 500 mg Chewable Tablet PO SCH (08:38)
[2020-10-12] MEDS: cloNIDine 0.1 MG TAB PO SCH ×2 (08:38→20:40)
[2020-10-12] MEDS: Cholecalciferol 1,000 UNITS (25 MCG) TAB PO SCH (08:39)
[2020-10-12] MEDS: Losartan 25 MG TAB PO SCH (08:39)
[2020-10-12] MEDS: Cefepime 1 GM in Sodium Chloride 0.9% 100 ML IVPB SCH ×2 (08:39→20:39)
[2020-10-12] MEDS: Azithromycin 500 MG in Sodium Chloride 0.9% 250 ML 250 ML IVPB SCH (08:40)
[2020-10-12] MEDS: Dexamethasone 6 MG in Sodium Chloride 0.9% 50 ML IVPB SCH (08:40)
--- NOTE | 2020-10-12 11:07 | PDOC.HOSPP ---
- Subjective Encounter Date: 10/12/20 Encounter Time: 09:00 Subjective: Patient seen and examined bedside today, patient condition has not improved, she is on high flow oxygen, today she has no fever, - Objective Vital Signs & Weight: Vital Signs (12 hours) Temp Pulse Resp BP Pulse Ox 10/12/20 09:00 89 L 10/12/20 08:00 91 L 10/12/20 07:13 98.1 F 84 18 165/85 H 91 L 10/12/20 04:15 84 97 10/12/20 01:51 92 L Weight Weight 134 lb Result Diagrams: 10/11/20 08:48 10/11/20 08:48 Hospitalist ROS - Review of Systems Constitutional: reports: weakness, malaise. denies: fever, chills, sweats, other Respiratory: reports: cough, shortness of breath, SOB with excertion. denies: dry, hemoptysis, pleuritic pain, sputum, wheezing, other Cardiovascular: denies: chest pain, palpitations, orthopnea, paroxysmal noc. dyspnea, edema, light headedness, other Gastrointestinal: denies: nausea, vomiting, abdominal pain, diarrhea, constipation, melena, hematochezia, other Genitourinary: denies: dysuria, frequency, incontinence, hematuria, retention, other Musculoskeletal: denies: neck pain, shoulder pain, arm pain, back pain, hand pa in, leg pain, foot pain, other - Medication Medications: Active Medications Generic Name Dose Route Start Last Admin Trade Name Freq PRN Reason Stop Dose Admin Acetaminophen 650 mg 10/07/20 15:27 10/11/20 07:43 Acetaminophen 325 Mg Tab PO 650 mg Q4H PRN Administration Headache/Fever/Mild Pain (1-3) Albuterol Sulfate 2 puff 10/11/20 13:00 10/12/20 06:09 Albuterol 200 Puff (6.7gm Inhaler) INH Not Given [id number] MAY Apixaban 2.5 mg 10/09/20 21:00 10/12/20 08:38 Apixaban 2.5 Mg Tab PO 2.5 mg BID MAY Administration Ascorbic Acid 1,000 mg 10/08/20 09:00 10/12/20 08:38 Ascorbic Acid 500 Mg Chewable Tablet PO 1,000 mg DAILY MAY Administration Atorvastatin Calcium 10 mg 10/08/20 21:00 10/11/20 21:32 Atorvastatin Calcium 10 Mg Tab PO 10 mg HS MAY Administration Cholecalciferol 1,000 units 10/08/20 09:00 10/12/20 08:39 Cholecalciferol 1,000 Units (25 Mcg) Tab PO 1,000 units DAILY MAY Administration Clonidine 0.1 mg 10/07/20 21:00 10/12/20 08:38 Clonidine 0.1 Mg Tab PO 0.1 mg BID MAY Administration Dexamethasone 6 mg/ Sodium 50.6 mls @ 100 mls/hr 10/08/20 09:00 10/12/20 08:40 Chloride IVPB 50.6 mls DAILY MAY Administration Azithromycin 500 mg/ Sodium 250 mls @ 250 mls/hr 10/11/20 08:00 10/12/20 08:40 Chloride IVPB 10/13/20 08:59 250 mls Q24HR MAY Administration Cefepime HCl 1 gm/ Sodium 100 mls @ 200 mls/hr 10/11/20 09:00 10/12/20 08:39 Chloride IVPB 10/13/20 09:29 100 mls Q12HR MAY Administration Losartan Potassium 100 mg 10/08/20 09:00 10/12/20 08:39 Losartan 25 Mg Tab PO 100 mg DAILY MAY Administration Ondansetron HCl 4 mg 10/08/20 08:52 10/09/20 12:14 Ondansetron Odt 4 Mg Tab PO 4 mg Q6H PRN Administration Nausea/Vomiting Pantoprazole Sodium 40 mg 10/08/20 09:00 10/12/20 08:39 Pantoprazole 40 Mg Tab PO 40 mg DAILY MAY Administration Saccharomyces Boulardii 250 mg 10/11/20 09:00 10/12/20 08:38 Saccharomyces Boulardii 250 Mg Cap PO 250 mg DAILY MAY Administration Zinc Sulfate 220 mg 10/08/20 09:00 10/12/20 08:38 Zinc Sulfate 220 Mg Cap PO 220 mg DAILY MAY Administration - Exam General Appearance: NAD, awake alert Eye: PERRL, anicteric sclera ENT: normocephalic atraumatic, no oropharyngeal lesions Neck: supple, symmetric, no JVD, no thyromegaly Heart: RRR, no murmur, no gallops, no rubs Respiratory: no tachypnea Respiratory - other findings: Bilateral coarse breath sound lower part, Gastrointestinal: soft, non-tender, non-distended, normal bowel sounds Extremities: no cyanosis, no clubbing, no edema Skin: normal turgor, no lesions Neurological: no focal deficits Musculoskeletal: normal tone, normal strength Psychiatric: normal affect, normal behavior Hosp A/P (1) Sepsis with acute organ dysfunction Code(s): A41.9 - SEPSIS, UNSPECIFIED ORGANISM; R65.20 - SEVERE SEPSIS WITHOUT SEPTIC SHOCK Status: Acute Qualifiers: Sepsis type: sepsis due to unspecified organism Severe sepsis acute organ dysfunction type: acute respiratory failure Acute respiratory failure type: with hypoxia Severe sepsis shock status: without septic shock Qualified Code(s): A41.9 - Sepsis, unspecified organism; R65.20 - Severe sepsis without septic shock; J96.01 - Acute respiratory failure with hypoxia (2) Acute respiratory failure with hypoxia Code(s): J96.01 - ACUTE RESPIRATORY FAILURE WITH HYPOXIA Status: Acute (3) Pneumonia due to COVID-19 virus Code(s): U07.1 - COVID-19; J12.82 - PNEUMONIA DUE TO CORONAVIRUS DISEASE 2019 Status: Acute (4) Elevated d-dimer Code(s): R79.89 - OTHER SPECIFIED ABNORMAL FINDINGS OF BLOOD CHEMISTRY Status: Acute (5) Hyperlipidemia Code(s): E78.5 - HYPERLIPIDEMIA, UNSPECIFIED Status: Chronic (6) Hypertension Code(s): I10 - ESSENTIAL (PRIMARY) HYPERTENSION Status: Chronic Qualifiers: Hypertension type: essential hypertension Qualified Code(s): I10 - Essential (primary) hypertension - Plan old records reviewed/req, continue antibiotics, respiratory therapy Patient is requiring high flow oxygen, Today we will give her convalescent plasma, risk and benefit of convalescent plasma discussed with the patient, Continue empiric cefepime and azithromycin for possible bacterial superinfection Continue dexamethasone Continue vitamin supplementation We will continue to monitor while in hospital,
[2020-10-12] MEDS ORDERED: Furosemide 40 MG/4 ML VIAL SLOW IVP SCH (19:00)
[2020-10-12] MEDS: Labetalol HCl 100 MG/20 ML VIAL SLOW IVP PRN (19:44)
--- NOTE | 2020-10-12 20:30 | RAD ---
PORTABLE CHEST ONE VIEW: Date: 10-12-2020 Time: 8:11 p.m. History: Pneumonia Comparison: 10-07-2020 FINDINGS: The heart size is stable. Patchy opacities are again seen in the lung dhillon bilaterally with bibasil ar dominance. No pneumothoraces or pleural effusions are seen. IMPRESSION: Findings are consistent with Covid 19 pneumonia. POS: OFF
[2020-10-12] MEDS: Atorvastatin Calcium 10 MG TAB PO SCH (20:39)
[2020-10-12] MEDS: Enoxaparin Sodium 60 MG/0.6 ML SYRINGE SC SCH (20:40)
[2020-10-12] MEDS ORDERED: ALPRAZolam 0.25 MG TAB PO SCH (22:15)
[2020-10-13] MEDS: methylPREDNISolone Sod Succ 40 MG VIAL IVP SCH ×4 (01:52→17:45)
[2020-10-13] MEDS ORDERED: ALPRAZolam 0.25 MG TAB PO SCH (04:00)
[2020-10-13 05:22] LABS: Phosphorus 2.6 mg/dL (2.3-4.7)
[2020-10-13 05:23] LABS: Albumin 2.8 g/dL (3.4-4.8); Anion Gap 13 mmol/L (10-20); BUN (Urea Nitrogen) 11 mg/dL (9.8-20.1); Bilirubin, Total 1.1 mg/dL (0.2-1.2); Calc. Creatinine Clearance 67 mL/min (70-130); Calcium 8.2 mg/dL (7.8-10.44); Carbon Dioxide 25 mmol/L (23-31); Chloride 99 mmol/L (98-107); Globulin 3.6 g/dL (2.4-3.5); Glucose 139 mg/dL (83-110); Potassium 4.4 mmol/L (3.5-5.1); Protein, Total 6.4 g/dL (6.0-8.3); Sodium 133 mmol/L (136-145)
[2020-10-13 05:24] LABS: ALT (SGPT) 21 U/L (8-55); AST (SGOT) 48 U/L (5-34); Alkaline Phosphatase 60 U/L (40-110); Magnesium 1.8 mg/dL (1.6-2.6)
[2020-10-13 05:48] LABS: Hemoglobin 11.6 g/dL (12.0-16.0); Mean Corpuscular HGB CONC 33.1 g/dL (32.0-36.0); Mean Corpuscular Hemoglobin 28.9 pg (27.0-31.0); Mean Corpuscular Volume 87.1 fL (78.0-98.0); Mean Platelet Volume 6.7 fL (7.4-10.4); Platelet Count 249 thou/uL (130-400); RBC Distribution Width 12.5 % (11.5-14.5); Red Blood Cell (RBC) Count 4.02 mill/uL (4.20-5.40); White Blood Cell (WBC) Count 26.4 thou/uL (4.8-10.8)
[2020-10-13 06:06] LABS: MDiff Complete? YES
[2020-10-13 06:07] LABS: Band 3 % (5-11); Lymphocytes 1 % (21-51); Monocytes 5 % (0-10); Neutrophil 91 % (42-75)
[2020-10-13] MEDS ORDERED: Furosemide 40 MG/4 ML VIAL SLOW IVP SCH (08:45)
[2020-10-13] MEDS: Cefepime 1 GM in Sodium Chloride 0.9% 100 ML IVPB SCH ×2 (09:49→21:58)
[2020-10-13] MEDS: cloNIDine 0.1 MG TAB PO SCH (09:49)
[2020-10-13] MEDS: Saccharomyces boulardii 250 MG CAP PO SCH (09:49)
[2020-10-13] MEDS: Losartan 25 MG TAB PO SCH (09:49)
[2020-10-13] MEDS: Ascorbic Acid 500 mg Chewable Tablet PO SCH (09:50)
[2020-10-13] MEDS: Cholecalciferol 1,000 UNITS (25 MCG) TAB PO SCH (09:50)
[2020-10-13] MEDS: Enoxaparin Sodium 60 MG/0.6 ML SYRINGE SC SCH ×2 (09:51→21:58)
[2020-10-13] MEDS: Pantoprazole 40 MG VIAL IVP SCH (09:51)
[2020-10-13] MEDS: Zinc Sulfate 220 MG CAP PO SCH (09:51)
[2020-10-13] MEDS ORDERED: Azithromycin 500 MG in Sodium Chloride 0.9% 250 ML 250 ML IVPB SCH (10:00)
--- NOTE | 2020-10-13 10:28 | PDOC.HOSPP ---
- Subjective Encounter Date: 10/13/20 Encounter Time: 07:00 Subjective: Yesterday evening patient's condition deteriorated, she was becoming hypoxic, tachycardic and tired so we have to transfer her to IMCU, last night patient was kept on BiPAP but she did not tolerated so subsequently changed to high flow oxygen, with high flow oxygen patient was not maintaining oxygen saturation, she continues to be tachycardic and tachypneic, last night patient was made DNR but this morning patient's family member and patient decided to be a full code, they are agreed with intubation if needed, as patient was not maintaining oxygen saturation well so we have to keep her back on BiPAP. - Objective Vital Signs & Weight: Vital Signs (12 hours) Temp Pulse Resp BP Pulse Ox 10/13/20 10:18 98.4 F 137 H 47 H 156/97 H 92 L 10/13/20 09:50 132 H 10/13/20 08:13 94 L 10/13/20 07:30 135 H 38 H 144/91 H 94 L 10/13/20 06:00 129 H 42 H 154/91 H 88 L 10/13/20 04:00 98.1 F 129 H 42 H 164/85 H 89 L 10/13/20 02:00 115 H 26 H 90 L 10/13/20 01:00 122 H 10/13/20 00:00 95 Weight Weight 134 lb I&O: 10/12/20 10/13/20 10/14/20 06:59 06:59 06:59 Intake Total 240 Balance 240 Result Diagrams: 10/13/20 04:43 10/13/20 04:43 Radiology Reviewed by me: Yes (Chest x-ray reviewed consistent with Covid pneumonia) EKG Reviewed by me: Yes (Tachycardia) Hospitalist ROS - Review of Systems Constitutional: reports: weakness, malaise ENT: denies: ear pain, ear discharge, nose pain, nose discharge, nose congestion, mouth pain, mouth swelling, throat pain, throat swelling, other Respiratory: reports: shortness of breath, SOB with excertion. denies: cough, dry, hemoptysis, pleuritic pain, sputum, wheezing, other Cardiovascular: denies: chest pain, palpitations, orthopnea, paroxysmal noc. dyspnea, edema, light headedness, other Gastrointestinal: denies: nausea, vomiting, abdominal pain, diarrhea, constipation, melena, hematochezia, other Genitourinary: denies: dysuria, frequency, incontinence, hematuria, retention, other Musculoskeletal: denies: neck pain, shoulder pain, arm pain, back pain, hand pain, leg pain, foot pain, other - Medication Medications: Active Medications Generic Name Dose Route Start Last Admin Trade Name Freq PRN Reason Stop Dose Admin Acetaminophen 650 mg 10/07/20 15:27 10/11/20 07:43 Acetaminophen 325 Mg Tab PO 650 mg Q4H PRN Administration Headache/Fever/Mild Pain (1-3) Albuterol Sulfate 2 puff 10/11/20 13:00 10/12/20 18:06 Albuterol 200 Puff (6.7gm Inhaler) INH 2 inhaler [id number] MAY Administration Ascorbic Acid 1,000 mg 10/08/20 09:00 10/13/20 09:50 Ascorbic Acid 500 Mg Chewable Tablet PO 1,000 mg DAILY MAY Administration Atorvastatin Calcium 10 mg 10/08/20 21:00 10/12/20 20:39 Atorvastatin Calcium 10 Mg Tab PO 10 mg HS MAY Administration Cholecalciferol 1,000 units 10/08/20 09:00 10/13/20 09:50 Cholecalciferol 1,000 Units (25 Mcg) Tab PO 1,000 units DAILY MAY Administration Clonidine 0.1 mg 10/07/20 21:00 10/13/20 09:49 Clonidine 0.1 Mg Tab PO 0.1 mg BID MAY Administration Enoxaparin Sodium 60 mg 10/12/20 21:00 10/13/20 09:51 Enoxaparin Sodium 60 Mg/0.6 Ml Syringe SC 60 mg 0900,2100 MAY Administration Furosemide 40 mg 10/13/20 08:45 10/13/20 09:49 Furosemide 40 Mg/4 Ml Vial SLOW IVP 10/13/20 11:00 40 mg NOW MAY Administration Cefepime HCl 1 gm/ Sodium 100 mls @ 200 mls/hr 10/11/20 09:00 10/13/20 09:49 Chloride IVPB 10/16/20 09:01 100 mls Q12HR MAY Administration Labetalol HCl 10 mg 10/12/20 18:45 10/12/20 19:44 Labetalol Hcl 100 Mg/20 Ml Vial SLOW IVP 10 mg Q4H PRN Administration SBP GREATER THAN 160 Losartan Potassium 100 mg 10/08/20 09:00 10/13/20 09:49 Losartan 25 Mg Tab PO 100 mg DAILY MAY Administration Methylprednisolone Sodium Succinate 40 mg 10/12/20 23:59 10/13/20 05:38 Methylprednisolone Sod Succ 40 Mg Vial IVP 40 mg Q6HR MAY Administration Ondansetron HCl 4 mg 10/08/20 08:52 10/09/20 12:14 Ondansetron Odt 4 Mg Tab PO 4 mg Q6H PRN Administration Nausea/Vomiting Pantoprazole Sodium 40 mg 10/13/20 09:00 10/13/20 09:51 Pantoprazole 40 Mg Vial IVP 40 mg DAILY MAY Administration Saccharomyces Boulardii 250 mg 10/11/20 09:00 10/13/20 09:49 Saccharomyces Boulardii 250 Mg Cap PO 250 mg DAILY MAY Administration Zinc Sulfate 220 mg 10/08/20 09:00 10/13/20 09:51 Zinc Sulfate 220 Mg Cap PO 220 mg DAILY MAY Administration - Exam General Appearance: ill appearing Eye: PERRL, anicteric sclera ENT: normocephalic atraumatic, no oropharyngeal lesions Neck: supple, symmetric, no JVD, no thyromegaly Heart: RRR, no gallops, no rubs Heart - other findings: Tachycardia Respiratory: tachypneic Respiratory - other findings: Bilateral basal rales and coarse breath sound Gastrointestinal: soft, non-tender, non-distended, normal bowel sounds Extremities: no cyanosis, no clubbing, no edema Skin: normal turgor, no lesions Neurological: no focal deficits Musculoskeletal: normal tone, normal strength Psychiatric: normal affect, normal behavior, A&O x 3 Hosp A/P (1) Sepsis with acute organ dysfunction Code(s): A41.9 - SEPSIS, UNSPECIFIED ORGANISM; R65.20 - SEVERE SEPSIS WITHOUT SEPTIC SHOCK Status: Acute Qualifiers: Sepsis type: sepsis due to unspecified organism Severe sepsis acute organ dysfunction type: acute respiratory failure Acute respiratory failure type: with hypoxia Severe sepsis shock status: without septic shock Qualified Code(s): A41.9 - Sepsis, unspecified organism; R65.20 - Severe sepsis without septic shock; J96.01 - Acute respiratory failure with hypoxia (2) Acute respiratory failure with hypoxia Code(s): J96.01 - ACUTE RESPIRATORY FAILURE WITH HYPOXIA Status: Acute (3) Pneumonia due to COVID-19 virus Code(s): U07.1 - COVID-19; J12.82 - PNEUMONIA DUE TO CORONAVIRUS DISEASE 2019 Status: Acute (4) Elevated d-dimer Code(s): R79.89 - OTHER SPECIFIED ABNORMAL FINDINGS OF BLOOD CHEMISTRY Status: Acute (5) Hyperlipidemia Code(s): E78.5 - HYPERLIPIDEMIA, UNSPECIFIED Status: Chronic (6) Hypertension Code(s): I10 - ESSENTIAL (PRIMARY) HYPERTENSION Status: Chronic Qualifiers: Hypertension type: essential hypertension Qualified Code(s): I10 - Essential (primary) hypertension - Plan old records reviewed/req, plan discussed w/ family, continue antibiotics, respiratory therapy, DVT proph w/lovenox Patient has been upgraded to IMCU, Continue BiPAP Patient has deterioration, pulmonology consulted, if patient is not able to maintain oxygen saturation with the BiPAP then she may need intubation, I discussed with the patient and patient's family member they are okay with in tubation if needed This patient did not qualify for remdesivir but she is given convalescent plasma Patient is on broad-spectrum antibiotic coverage with cefepime, azithromycin Continue Solu-Medrol Continue vitamin supplementation Medication reviewed and continue provide symptomatic and supportive care I had a lengthy discussion with the patient's and family member about current condition and prognosis updated, I have added Lasix in case if that also helps with her oxygen saturation given elevated BNP Will closely monitor, whenever bed available then patient will be going to IMCU or CCU based on clinical condition
[2020-10-13] MEDS: Azithromycin 500 MG in Sodium Chloride 0.9% 250 ML 250 ML IVPB SCH (10:49)
[2020-10-13] MEDS ORDERED: Carvedilol 6.25 MG TAB PO SCH (12:15)
--- NOTE | 2020-10-13 12:38 | CON ---
DATE OF CONSULTATION: 10/13/2020 A 80-year-old female who is on BiPAP with cerrato positive status. She was admitted on October 07. Apparently she had a diagnosis of cerrato positive status on August 29, almost 5 to 6 weeks ago. She now presents with worsening shortness of breath, cough, tightness in the chest without any fever or chills. She has been here for several days and received antibiotics steroids, worsening status overnight with BiPAP. REASON FOR CONSULT: Hypoxemia. She is on BiPAP in the room. PAST MEDICAL HISTORY: Hypertension, high cholesterol. PREVIOUS SURGERIES: Cholecystectomy. SOCIAL HISTORY: No alcohol or tobacco use. HOME MEDICATIONS: 1. Benicar. 2. Pravachol. 3. Zinc. 4. Eliquis 2.5 twice a day. REVIEW OF SYSTEMS: Otherwise unremarkable. PHYSICAL EXAMINATION: VITAL SIGNS: Temp 98, pulse 130, respiratory rate 40, saturation 92% on 70% FiO2 on a BiPAP, blood pressure 156/97. CHEST: No wheezing, no crackles. CARDIAC: Normal S1, normal S2, no gallops. ABDOMEN: Soft. LABORATORY DATA: White count 26,000, H and H 11 and 35, platelet count is normal. Creatinine normal, glucose 139. C-reactive protein is . BNP is 47. ASSESSMENT: Cerrato positive status, respiratory failure long-term anticoagulation. Multiple changes have been made including starting IV Medrol, empiric antibiotics. She is not a candidate for any medication at discharge, i.e. plasma or Remdesivir. Give her the broad-spectrum antibiotics. She is to continue anticoagulation. Apparently, she wants everything to be done including intubation. TIME SPENT: 70 minutes, 50% in direct patient care. Job ID: [id number]
--- NOTE | 2020-10-13 15:09 | PDOC.PALCO ---
Palliative Care Consult - Consult Details Requesting Physician: Dr Rivera Reason for Consult: goals of care, advance directives assistance, complex decision-making Family Members Present: Daughter Moe. Other siblings and spouse via video conference - Pertinent HPI 80 year old female who presented to the emergency room via EMS secondary to worsening symptoms including headache, fatigue, lethargy, increase in shortness of breath and low grade fever. Initial diagnosis of Covid in July as per family, recurrent infection. Admitted for medical management as she has already had a steroid taper and azithromycin in the home setting that showed no improvement. Continued decline during course of hospital stay. Currently on Bipap and desats when sleeping. Received Abx and steroids. Decline over night. - Pertinent PMH HDL, HTN - Social History Smoking Status: Never smoker Smoking: no tobacco exposure Alcohol Use: none Drug Use History: none Living Situation: independent, - Medications MAR Reviewed: Yes - Allergies Allergies/Adverse Reactions: Allergies Allergy/AdvReac Type Severity Reaction Status Date / Time No Known Allergies Allergy Verified 10/07/20 16:19 - Subjective Bi pap, labored respirations. Difficult to obtain review of systems secondary to significant respiratory workload. Daughter to bedside. - ROS Constitutional: weakness ENT: dry mouth Respiratory: shortness of breath, shortness of breath with extertion Cardiology: paroxysmal noc. dyspnea - Objective Vital Signs: Vital Signs - Most Recent Temp Pulse Resp BP Pulse Ox 97.7 F 132 H 40 H 118/93 H 92 L 10/13/20 12:14 10/13/20 12:14 10/13/20 12:14 10/13/20 12:14 10/13/20 12:14 Palliative Performance Scale: 30 - Physical Exam Constitutional: ill appearing, mild distress HEENT: EOMI, moist MMs, PERRLA Respiratory: no rhonchi, no wheezing, diminished lung sound, labored respirations Cardiovascular: RRR Gastrointestinal: soft, non-tender Genitourinary: incontinent Musculoskeletal: no cyanosis, no clubbing, pulses present Neurology: moves all 4 limbs, no focal deficits Skin: cap refill <2 seconds, bruising, fragile Psychiatric: A&O x 3 - Problem List (1) Palliative care encounter Code(s): Z51.5 - ENCOUNTER FOR PALLIATIVE CARE Current Visit: Yes Status: Acute (2) Acute respiratory failure with hypoxia Code(s): J96.01 - ACUTE RESPIRATORY FAILURE WITH HYPOXIA Current Visit: Yes Status: Acute (3) Pneumonia due to COVID-19 virus Code(s): U07.1 - COVID-19; J12.82 - PNEUMONIA DUE TO CORONAVIRUS DISEASE 2019 Current Visit: Yes Status: Acute (4) Hyperlipidemia Code(s): E78.5 - HYPERLIPIDEMIA, UNSPECIFIED Current Visit: Yes Status: Chronic (5) Hypertension Code(s): I10 - ESSENTIAL (PRIMARY) HYPERTENSION Current Visit: Yes Status: Chronic Qualifiers: Hypertension type: essential hypertension Qualified Code(s): I10 - Essential (primary) hypertension - Plan/Recommendations Plan: Patient was a DNAR, then family visited with her and transitioned to full resuscitative measures. Visited with patient alone, she expressed "she was tired" and did not in fact want to be intubated, she did it for her family. Education with family in relation to Covid, impact on lungs and patient deconditioning and fragile state In visiting with the family the agreed that she did not desire to be intubated, and that they had decided to honor her wishes. Family was hoping for recovery, however understand that she does not desire to be intubated. They confirm that when her sister was intubated she told them at that time she did not "want that". Discussed option of transition to DNAR and continue with aggressive measures to seek recovery. Also discussed option of Hospice to transition to comfort care. Allowing for better management of symptoms and additional support. Patient daughter Rhea at bedside with her mother. States she will relay if they decide to transition to hospice. Emotional support and Therapeutic listening. Communicated with Dr Cody CM, [place] vice president of contracts and Samson Amador primary RN for patient. [90] minutes spent on this encounter with >50% of the time in counseling and coordination of care. Thank you for this very appropriate consult.
[2020-10-13] MEDS: Albuterol 200 PUFF (6.7GM INHALER) INH SCH ×6 (15:11→17:47)
[2020-10-13] MEDS: Furosemide 40 MG/4 ML VIAL SLOW IVP SCH (15:13)
[2020-10-13] MEDS: Carvedilol 6.25 MG TAB PO SCH (16:39)
[2020-10-13] MEDS: Mometasone 200 MCG/Formoterol 5 MCG 120 PUFF INHALER INH SCH (17:45)
[2020-10-13] MEDS ORDERED: Mometasone 200 MCG/Formoterol 5 MCG 120 PUFF INHALER INH SCH (18:30)
[2020-10-13] MEDS: Atorvastatin Calcium 10 MG TAB PO SCH (21:58)
[2020-10-14] MEDS: methylPREDNISolone Sod Succ 40 MG VIAL IVP SCH ×4 (01:55→17:39)
[2020-10-14] MEDS: cloNIDine 0.1 MG TAB PO SCH (01:56)
[2020-10-14] MEDS: Furosemide 40 MG/4 ML VIAL SLOW IVP SCH (05:15)
[2020-10-14 05:46] LABS: ALT (SGPT) 17 U/L (8-55); AST (SGOT) 29 U/L (5-34); Albumin 2.6 g/dL (3.4-4.8); Alkaline Phosphatase 52 U/L (40-110); Anion Gap 16 mmol/L (10-20); BUN (Urea Nitrogen) 34 mg/dL (9.8-20.1); Bilirubin, Total 0.8 mg/dL (0.2-1.2); Calc. Creatinine Clearance 58 mL/min (70-130); Calcium 8.3 mg/dL (7.8-10.44); Carbon Dioxide 24 mmol/L (23-31); Globulin 3.5 g/dL (2.4-3.5); Glucose 172 mg/dL (83-110); Potassium 4.2 mmol/L (3.5-5.1); Protein, Total 6.1 g/dL (6.0-8.3)
[2020-10-14 05:48] LABS: Troponin I 0.116 ng/mL (< 0.028)
[2020-10-14 06:04] LABS: Chloride 101 mmol/L (98-107); Sodium 137 mmol/L (136-145)
[2020-10-14 06:28] LABS: Hemoglobin 11.2 g/dL (12.0-16.0); Mean Corpuscular HGB CONC 32.4 g/dL (32.0-36.0); Mean Corpuscular Hemoglobin 28.4 pg (27.0-31.0); Mean Corpuscular Volume 87.7 fL (78.0-98.0); Mean Platelet Volume 7.5 fL (7.4-10.4); Platelet Count 235 thou/uL (130-400); RBC Distribution Width 12.7 % (11.5-14.5); Red Blood Cell (RBC) Count 3.94 mill/uL (4.20-5.40); White Blood Cell (WBC) Count 20.8 thou/uL (4.8-10.8)
[2020-10-14 06:49] LABS: Band 9 % (5-11); Lymphocytes 2 % (21-51); MDiff Complete? YES; Monocytes 1 % (0-10); Neutrophil 88 % (42-75)
[2020-10-14] MEDS: Pantoprazole 40 MG VIAL IVP SCH (07:55)
[2020-10-14] MEDS: Enoxaparin Sodium 60 MG/0.6 ML SYRINGE SC SCH ×2 (07:55→21:06)
[2020-10-14] MEDS: Cefepime 1 GM in Sodium Chloride 0.9% 100 ML IVPB SCH ×2 (07:55→21:01)
[2020-10-14] MEDS: Cholecalciferol 1,000 UNITS (25 MCG) TAB PO SCH (07:56)
[2020-10-14] MEDS: Saccharomyces boulardii 250 MG CAP PO SCH (07:56)
[2020-10-14] MEDS: Carvedilol 6.25 MG TAB PO SCH ×2 (07:56→17:39)
[2020-10-14] MEDS: Ascorbic Acid 500 mg Chewable Tablet PO SCH (07:56)
[2020-10-14] MEDS: Zinc Sulfate 220 MG CAP PO SCH (07:56)
[2020-10-14] MEDS: Albuterol 200 PUFF (6.7GM INHALER) INH SCH ×4 (07:58→18:47)
[2020-10-14] MEDS: Mometasone 200 MCG/Formoterol 5 MCG 120 PUFF INHALER INH SCH ×2 (07:58→19:12)
--- NOTE | 2020-10-14 11:08 | PRG ---
DATE OF SERVICE: 10/14/2020 OBJECTIVE: VITAL SIGNS: This morning, temperature 97.7, respiratory rate is 35, sats are 90% on BiPAP, 70% FiO2, blood pressure is improved at 140/82, still very short of breath. CHEST: No wheezing. No crackles. CARDIAC: Normal S1 and S2. No gallops. ABDOMEN: No masses. ASSESSMENT: 1. Respiratory failure, cerrato positive pneumonia. 2. Congestive heart failure. Continue high-dose steroids, empiric antibiotics. Supportive care. Prognosis remains guarded. We will follow. Job ID: [id number]
--- NOTE | 2020-10-14 11:52 | PDOC.HOSPP ---
- Subjective Encounter Date: 10/14/20 Encounter Time: 07:10 Subjective: Patient seen and examined. No overnight events, compared to yesterday patient appears comfortable, she has relatively low blood pressure today and her pulse has been improved, she is tolerating BiPAP today, family member present bedside today, I spoke with them and updated about current condition, test result and plan of care - Objective Vital Signs & Weight: Vital Signs (12 hours) Temp Pulse Resp BP Pulse Ox 10/14/20 10:52 92 L 10/14/20 10:00 89 35 H 142/82 H 89 L 10/14/20 08:00 96.5 F L 71 30 H 106/59 L 91 L 10/14/20 07:29 90 L 10/14/20 06:00 62 25 H 96/56 L 90 L 10/14/20 04:00 96.1 F L 76 26 H 102/59 L 91 L 10/14/20 02:00 70 29 H 100/60 92 L 10/14/20 01:33 74 37 H 88 L 10/14/20 00:00 97.1 F L 74 20 96/62 92 L Weight Weight 134 lb I&O: 10/13/20 10/14/20 10/15/20 06:59 06:59 06:59 Intake Total 240 350 Balance 240 350 Result Diagrams: 10/14/20 05:08 10/14/20 05:08 EKG Reviewed by me: Yes Hospitalist ROS - Review of Systems Constitutional: reports: weakness, malaise ENT: denies: ear pain, ear discharge, nose pain, nose discharge, nose c ongestion, mouth pain, mouth swelling, throat pain, throat swelling, other Respiratory: reports: shortness of breath, SOB with excertion. denies: cough, dry, hemoptysis, pleuritic pain, sputum, wheezing, other Cardiovascular: denies: chest pain, palpitations, orthopnea, paroxysmal noc. dyspnea, edema, light headedness, other Gastrointestinal: denies: nausea, vomiting, abdominal pain, diarrhea, constipation, melena, hematochezia, other Genitourinary: denies: dysuria, frequency, incontinence, hematuria, retention, other Musculoskeletal: denies: neck pain, shoulder pain, arm pain, back pain, hand pain, leg pain, foot pain, other - Medication Medications: Active Medications Generic Name Dose Route Start Last Admin Trade Name Freq PRN Reason Stop Dose Admin Acetaminophen 650 mg 10/07/20 15:27 10/11/20 07:43 Acetaminophen 325 Mg Tab PO 650 mg Q4H PRN Administration Headache/Fever/Mild Pain (1-3) Albuterol Sulfate 2 puff 10/11/20 13:00 10/14/20 08:46 Albuterol 200 Puff (6.7gm Inhaler) INH Not Given [id number] MAY Ascorbic Acid 1,000 mg 10/08/20 09:00 10/14/20 07:56 Ascorbic Acid 500 Mg Chewable Tablet PO 1,000 mg DAILY MAY Administration Atorvastatin Calcium 10 mg 10/08/20 21:00 10/13/20 21:58 Atorvastatin Calcium 10 Mg Tab PO 10 mg HS MAY Administration Carvedilol 6.25 mg 10/13/20 17:00 10/14/20 07:56 Carvedilol 6.25 Mg Tab PO Not Given BID-WM MAY Cholecalciferol 1,000 units 10/08/20 09:00 10/14/20 07:56 Cholecalciferol 1,000 Units (25 Mcg) Tab PO 1,000 units DAILY MAY Administration Enoxaparin Sodium 60 mg 10/12/20 21:00 10/14/20 07:55 Enoxaparin Sodium 60 Mg/0.6 Ml Syringe SC 60 mg 0900,2100 MAY Administration Cefepime HCl 1 gm/ Sodium 100 mls @ 200 mls/hr 10/11/20 09:00 10/14/20 07:55 Chloride IVPB 10/16/20 09:01 100 mls Q12HR MAY Administration Labetalol HCl 10 mg 10/12/20 18:45 10/12/20 19:44 Labetalol Hcl 100 Mg/20 Ml Vial SLOW IVP 10 mg Q4H PRN Administration SBP GREATER THAN 160 Methylprednisolone Sodium Succinate 40 mg 10/12/20 23:59 10/14/20 11:36 Methylprednisolone Sod Succ 40 Mg Vial IVP 40 mg Q6HR MAY Administration Mometasone Furoate/Formoterol Fumar 2 puff 10/13/20 18:30 10/14/20 07:58 Mometasone 200 Mcg/Formoterol 5 Mcg 120 Puff Inhaler INH Not Given BID-RT MAY Ondansetron HCl 4 mg 10/08/20 08:52 10/09/20 12:14 Ondansetron Odt 4 Mg Tab PO 4 mg Q6H PRN Administration Nausea/Vomiting Pantoprazole Sodium 40 mg 10/13/20 09:00 10/14/20 07:55 Pantoprazole 40 Mg Vial IVP 40 mg DAILY MAY Administration Saccharomyces Boulardii 250 mg 10/11/20 09:00 10/14/20 07:56 Saccharomyces Boulardii 250 Mg Cap PO 250 mg DAILY MAY Administration Zinc Sulfate 220 mg 10/08/20 09:00 10/14/20 07:56 Zinc Sulfate 220 Mg Cap PO 220 mg DAILY MAY Administration - Exam General Appearance: NAD, awake alert Eye: PERRL, anicteric sclera ENT: normocephalic atraumatic, no oropharyngeal lesions Neck: supple, symmetric, no JVD, no thyromegaly Heart: RRR, no murmur, no gallops Respiratory - other findings: Bilateral basal rales Gastrointestinal: soft, non-tender, non-distended, normal bowel sounds Extremities: no cyanosis, no clubbing, no edema Skin: normal turgor, no lesions Neurological: no focal deficits Musculoskeletal: normal tone, normal strength Psychiatric: normal affect, normal behavior Hosp A/P (1) Pneumonia due to COVID-19 virus Code(s): U07.1 - COVID-19; J12.82 - PNEUMONIA DUE TO CORONAVIRUS DISEASE 2019 Status: Acute (2) Acute respiratory failure with hypoxia Code(s): J96.01 - ACUTE RESPIRATORY FAILURE WITH HYPOXIA Status: Acute (3) Elevated d-dimer Code(s): R79.89 - OTHER SPECIFIED ABNORMAL FINDINGS OF BLOOD CHEMISTRY Status: Acute (4) Hyperlipidemia Code(s): E78.5 - HYPERLIPIDEMIA, UNSPECIFIED Status: Chronic (5) Hypertension Code(s): I10 - ESSENTIAL (PRIMARY) HYPERTENSION Status: Chronic Qualifiers: Hypertension type: essential hypertension Qualified Code(s): I10 - Essential (primary) hypertension - Plan old records reviewed/req, plan discussed w/ family, continue antibiotics, respiratory therapy, DVT proph w/lovenox Patient was admitted with a Covid pneumonia, initially patient was doing well but subsequently condition deteriorated required high flow oxygen, patient was still hypoxic and tachypneic so we have to upgrade to IMCU, there was no bed av ailable so she is [place], patient is requiring BiPAP, initially family member and patient where planning to consider hospice but now as patient has somewhat clinical improvement so they are now continue with treatment plan Continue BiPAP Pulmonology following, This patient did not qualify for remdesivir but she is given convalescent plasma Patient is on broad-spectrum antibiotic coverage with cefepime Continue Solu-Medrol Continue vitamin supplementation Medication reviewed and continue provide symptomatic and supportive care Today because of relatively low blood pressure I will hold blood pressure medication except Coreg
[2020-10-14] MEDS: Atorvastatin Calcium 10 MG TAB PO SCH (21:00)
[2020-10-15] MEDS: methylPREDNISolone Sod Succ 40 MG VIAL IVP SCH ×5 (00:49→22:30)
[2020-10-15] MEDS: Mometasone 200 MCG/Formoterol 5 MCG 120 PUFF INHALER INH SCH ×2 (05:14→21:36)
[2020-10-15] MEDS: Albuterol 200 PUFF (6.7GM INHALER) INH SCH ×3 (07:49→12:06)
[2020-10-15] MEDS: Zinc Sulfate 220 MG CAP PO SCH (07:49)
[2020-10-15] MEDS: Saccharomyces boulardii 250 MG CAP PO SCH (07:50)
[2020-10-15] MEDS: Cholecalciferol 1,000 UNITS (25 MCG) TAB PO SCH (07:50)
[2020-10-15] MEDS: Carvedilol 6.25 MG TAB PO SCH ×2 (07:50→18:05)
[2020-10-15] MEDS: Ascorbic Acid 500 mg Chewable Tablet PO SCH (07:50)
[2020-10-15] MEDS: Furosemide 20 MG/2 ML VIAL SLOW IVP SCH (07:51)
[2020-10-15] MEDS: Pantoprazole 40 MG VIAL IVP SCH (07:51)
[2020-10-15] MEDS: Enoxaparin Sodium 60 MG/0.6 ML SYRINGE SC SCH ×2 (07:51→21:24)
[2020-10-15] MEDS: Cefepime 1 GM in Sodium Chloride 0.9% 100 ML IVPB SCH ×2 (08:03→21:24)
--- NOTE | 2020-10-15 10:48 | PRG ---
DATE OF SERVICE: 10/15/2020 SUBJECTIVE: A 80-year-old female, remains on BiPAP. OBJECTIVE: VITAL SIGNS: Temperature 97, pulse 58, respirations 24, sats 93% on 60% FiO2, blood pressure 140/75. CHEST: No wheezing. No crackles. CARDIAC: Normal S1, S2. No gallops. ABDOMEN: No masses. IMPRESSION: 1. Respiratory failure. 2. Lucas positive pneumonia. 3. She is a DNR. PLAN: An x-ray is being ordered. Continue otherwise empiric antibiotics, steroids, supportive care. Job ID: [id number]
--- NOTE | 2020-10-15 16:28 | PDOC.HOSPP ---
- Subjective Encounter Date: 10/15/20 Encounter Time: 07:00 Subjective: Patient seen for follow-up regarding acute hypoxic respiratory failure. She denies chest pain. She is currently on BiPAP. - Objective Vital Signs & Weight: Vital Signs (12 hours) Temp Pulse Resp BP Pulse Ox 10/15/20 12:00 96.1 F L 76 22 H 146/89 H 96 10/15/20 10:28 93 L 10/15/20 10:00 96.9 F L 54 L 24 H 137/78 95 10/15/20 08:00 97.6 F 58 L 24 H 144/75 H 93 L 10/15/20 06:51 68 38 H 95 10/15/20 06:00 65 28 H 144/72 H 96 10/15/20 05:14 65 28 H 96 Weight Weight 134 lb I&O: 10/14/20 10/15/20 10/16/20 06:59 06:59 06:59 Intake Total 350 602 Output Total 725 Balance 350 -123 Result Diagrams: 10/14/20 05:08 10/14/20 05:08 Additional Labs: Labs and MAR reviewed by me EKG Reviewed by me: Yes (Telemetry shows normal sinus rhythm) Hospitalist ROS - Review of Systems Respiratory: denies: cough, dry, shortness of breath, hemoptysis, SOB with excertion, pleuritic pain, sputum, wheezing Cardiovascular: denies: chest pain, palpitations, orthopnea, paroxysmal noc. dyspnea, edema, light headedness - Medication Medications: Active Medications Generic Name Dose Route Start Last Admin Trade Name Freq PRN Reason Stop Dose Admin Acetaminophen 650 mg 10/07/20 15:27 10/11/20 07:43 Acetaminophen 325 Mg Tab PO 650 mg Q4H PRN Administration Headache/Fever/Mild Pain (1-3) Albuterol Sulfate 2 puff 10/11/20 13:00 10/15/20 12:06 Albuterol 200 Puff (6.7gm Inhaler) INH 2 inhaler [id number] MAY Administration Ascorbic Acid 1,000 mg 10/08/20 09:00 10/15/20 07:50 Ascorbic Acid 500 Mg Chewable Tablet PO 1,000 mg DAILY MAY Administration Atorvastatin Calcium 10 mg 10/08/20 21:00 10/14/20 21:00 Atorvastatin Calcium 10 Mg Tab PO 10 mg HS MAY Administration Carvedilol 6.25 mg 10/13/20 17:00 10/15/20 07:50 Carvedilol 6.25 Mg Tab PO 6.25 mg BID-WM MAY Administration Cholecalciferol 1,000 units 10/08/20 09:00 10/15/20 07:50 Cholecalciferol 1,000 Units (25 Mcg) Tab PO 1,000 units DAILY MAY Administration Enoxaparin Sodium 60 mg 10/12/20 21:00 10/15/20 07:51 Enoxaparin Sodium 60 Mg/0.6 Ml Syringe SC 60 mg 09,2099 MAY Administration Furosemide 20 mg 10/15/20 09:00 10/15/20 07:51 Furosemide 20 Mg/2 Ml Vial SLOW IVP 20 mg DAILY MAY Administration Cefepime HCl 1 gm/ Sodium 100 mls @ 200 mls/hr 10/11/20 09:00 10/15/20 08:03 Chloride IVPB 10/16/20 09:01 100 mls Q12HR MAY Administration Labetalol HCl 10 mg 10/12/20 18:45 10/12/20 19:44 Labetalol Hcl 100 Mg/20 Ml Vial SLOW IVP 10 mg Q4H PRN Administration SBP GREATER THAN 160 Methylprednisolone Sodium Succinate 40 mg 10/12/20 23:59 10/15/20 12:06 Methylprednisolone Sod Succ 40 Mg Vial IVP 40 mg Q6HR MAY Administration Mometasone Furoate/Formoterol Fumar 2 puff 10/13/20 18:30 10/15/20 05:14 Mometasone 200 Mcg/Formoterol 5 Mcg 120 Puff Inhaler INH 2 puff BID-RT MAY Administration Ondansetron HCl 4 mg 10/08/20 08:52 10/09/20 12:14 Ondansetron Odt 4 Mg Tab PO 4 mg Q6H PRN Administration Nausea/Vomiting Pantoprazole Sodium 40 mg 10/13/20 09:00 10/15/20 07:51 Pantoprazole 40 Mg Vial IVP 40 mg DAILY MAY Administration Saccharomyces Boulardii 250 mg 10/11/20 09:00 10/15/20 07:50 Saccharomyces Boulardii 250 Mg Cap PO 250 mg DAILY MAY Administration Zinc Sulfate 220 mg 10/08/20 09:00 10/15/20 07:49 Zinc Sulfate 220 Mg Cap PO 220 mg DAILY MAY Administration - Exam General Appearance: awake alert Eye: anicteric sclera ENT: moist mucosa Neck: supple Heart: RRR Respiratory: CTAB Gastrointestinal: soft Skin: no rashes Psychiatric: normal affect, normal behavior Hosp A/P - Plan Hosp A/P (1) Acute respiratory failure with hypoxia Code(s): J96.01 - ACUTE RESPIRATORY FAILURE WITH HYPOXIA Status: Acute (2) Pneumonia due to COVID-19 virus Code(s): U07.1 - COVID-19; J12.82 - PNEUMONIA DUE TO CORONAVIRUS DISEASE 2019 Status: Acute (3) Hyperlipidemia Code(s): E78.5 - HYPERLIPIDEMIA, UNSPECIFIED Status: Chronic (4) Hypertension Code(s): I10 - ESSENTIAL (PRIMARY) HYPERTENSION Status: Chronic Qualifiers: Hypertension type: essential hypertension Qualified Code(s): I10 - Essential (primary) hypertension - Plan Patient is on BiPAP. She did not qualify for remdesivir. She received convalescent plasma. She is on cefepime for empiric coverage for bacterial pneumonia. She is on IV Solu-Medrol. Continue vitamin C and zinc. Patient's daughter updated by bedside.
[2020-10-15] MEDS: Atorvastatin Calcium 10 MG TAB PO SCH (21:24)
[2020-10-16] MEDS: Albuterol 200 PUFF (6.7GM INHALER) INH SCH ×5 (00:11→18:04)
[2020-10-16] MEDS: Zolpidem Tartrate 5 MG TAB PO PRN (03:14)
[2020-10-16] MEDS: methylPREDNISolone Sod Succ 40 MG VIAL IVP SCH ×3 (05:07→18:03)
[2020-10-16] MEDS: Mometasone 200 MCG/Formoterol 5 MCG 120 PUFF INHALER INH SCH ×2 (05:16→18:04)
[2020-10-16] MEDS: Ascorbic Acid 500 mg Chewable Tablet PO SCH (08:16)
[2020-10-16] MEDS: Zinc Sulfate 220 MG CAP PO SCH (08:16)
[2020-10-16] MEDS: Carvedilol 6.25 MG TAB PO SCH ×2 (08:16→18:03)
[2020-10-16] MEDS: Enoxaparin Sodium 60 MG/0.6 ML SYRINGE SC SCH ×2 (08:17→20:12)
[2020-10-16] MEDS: Cholecalciferol 1,000 UNITS (25 MCG) TAB PO SCH (08:17)
[2020-10-16] MEDS: Saccharomyces boulardii 250 MG CAP PO SCH (08:17)
[2020-10-16] MEDS: Senokot S 8.6-50 MG TAB PO PRN (08:17)
[2020-10-16] MEDS: Furosemide 20 MG/2 ML VIAL SLOW IVP SCH (08:17)
[2020-10-16] MEDS: Pantoprazole 40 MG VIAL IVP SCH (08:18)
[2020-10-16] MEDS: Cefepime 1 GM in Sodium Chloride 0.9% 100 ML IVPB SCH ×2 (08:18→20:12)
[2020-10-16] MEDS ORDERED: Cefepime 1 GM in Sodium Chloride 0.9% 100 ML IVPB SCH (12:00)
--- NOTE | 2020-10-16 12:09 | PRG ---
DATE OF SERVICE: 10/16/2020 OBJECTIVE: VITAL SIGNS: Temperature 97, pulse 61, sats 96%, BiPAP, 60% FiO2, blood pressure 151/71. CHEST: No wheezing. No crackles. CARDIAC: Normal S1. ABDOMEN: No masses. IMPRESSION: 1. Lucas positive pneumonia. 2. Respiratory failure, still on BiPAP. PLAN: Hopefully, we can try and get her down to high-flow. Surgical needs. Overall, still requiring a fair amount of supplemental oxygen. She is on high-dose steroids, supportive care. Job ID: [id number]
--- NOTE | 2020-10-16 13:44 | PDOC.HOSPP ---
- Subjective Encounter Date: 10/16/20 (\) Encounter Time: 07:30 Subjective: Patient seen for follow-up regarding hypoxic respiratory failure. Reports feeling better today. - Objective Vital Signs & Weight: Vital Signs (12 hours) Temp Pulse Resp BP Pulse Ox 10/16/20 12:40 97.0 F L 64 24 H 145/67 H 90 L 10/16/20 12:22 62 25 H 91 L 10/16/20 10:00 96.9 F L 61 22 H 161/71 H 96 10/16/20 09:36 54 L 34 H 98 10/16/20 08:00 97.0 F L 60 23 H 171/76 H 95 10/16/20 07:50 96 10/16/20 05:54 98.1 F 57 L 24 H 148/78 H 96 10/16/20 05:16 60 22 H 96 10/16/20 04:00 97.5 F L 59 L 22 H 155/80 H 96 10/16/20 02:46 21 H 96 10/16/20 02:00 97.5 F L 56 L 22 H 148/67 H 95 Weight Weight 134 lb I&O: 10/15/20 10/16/20 10/17/20 06:59 06:59 06:59 Intake Total 602 740 Output Total 725 1450 Balance -123 -710 Result Diagrams: 10/14/20 05:08 10/14/20 05:08 Additional Labs: I reviewed patient's labs and MAR EKG Reviewed by me: Yes (Normal sinus rhythm on telemetry) Hospitalist ROS - Review of Systems Respiratory: reports: cough, dry, SOB with excertion. denies: shortness of breath, hemoptysis, pleuritic pain, sputum, wheezing Cardiovascular: denies: chest pain, palpitations, orthopnea, paroxysmal noc. dyspnea, edema, light headedness - Medication Medications: Active Medications Generic Name Dose Route Start Last Admin Trade Name Freq PRN Reason Stop Dose Admin Acetaminophen 650 mg 10/07/20 15:27 10/11/20 07:43 Acetaminophen 325 Mg Tab PO 650 mg Q4H PRN Administration Headache/Fever/Mild Pain (1-3) Albuterol Sulfate 2 puff 10/11/20 13:00 10/16/20 12:23 Albuterol 200 Puff (6.7gm Inhaler) INH 2 inhaler [id number] MAY Administration Ascorbic Acid 1,000 mg 10/08/20 09:00 10/16/20 08:16 Ascorbic Acid 500 Mg Chewable Tablet PO 1,000 mg DAILY MAY Administration Atorvastatin Calcium 10 mg 10/08/20 21:00 10/15/20 21:24 Atorvastatin Calcium 10 Mg Tab PO 10 mg HS MAY Administration Carvedilol 6.25 mg 10/13/20 17:00 10/16/20 08:16 Carvedilol 6.25 Mg Tab PO 6.25 mg BID-WM MAY Administration Cholecalciferol 1,000 units 10/08/20 09:00 10/16/20 08:17 Cholecalciferol 1,000 Units (25 Mcg) Tab PO 1,000 units DAILY MAY Administration Enoxaparin Sodium 60 mg 10/12/20 21:00 10/16/20 08:17 Enoxaparin Sodium 60 Mg/0.6 Ml Syringe SC 60 mg 0900,2100 MAY Administration Furosemide 20 mg 10/15/20 09:00 10/16/20 08:17 Furosemide 20 Mg/2 Ml Vial SLOW IVP 20 mg DAILY MAY Administration Labetalol HCl 10 mg 10/12/20 18:45 10/12/20 19:44 Labetalol Hcl 100 Mg/20 Ml Vial SLOW IVP 10 mg Q4H PRN Administration SBP GREATER THAN 160 Methylprednisolone Sodium Succinate 40 mg 10/12/20 23:59 10/16/20 12:15 Methylprednisolone Sod Succ 40 Mg Vial IVP 40 mg Q6HR MAY Administration Mometasone Furoate/Formoterol Fumar 2 puff 10/13/20 18:30 10/16/20 05:16 Mometasone 200 Mcg/Formoterol 5 Mcg 120 Puff Inhaler INH 2 puff BID-RT MAY Administration Ondansetron HCl 4 mg 10/08/20 08:52 10/09/20 12:14 Ondansetron Odt 4 Mg Tab PO 4 mg Q6H PRN Administration Nausea/Vomiting Pantoprazole Sodium 40 mg 10/13/20 09:00 10/16/20 08:18 Pantoprazole 40 Mg Vial IVP 40 mg DAILY MAY Administration Saccharomyces Boulardii 250 mg 10/11/20 09:00 10/16/20 08:17 Saccharomyces Boulardii 250 Mg Cap PO 250 mg DAILY MAY Administration Senna/Docusate Sodium 2 tab 10/08/20 08:52 10/16/20 08:17 Senokot S 8.6-50 Mg Tab PO 2 tab BIDPRN PRN Administration Constipation Zinc Sulfate 220 mg 10/08/20 09:00 10/16/20 08:16 Zinc Sulfate 220 Mg Cap PO 220 mg DAILY MAY Administration Zolpidem Tartrate 5 mg 10/08/20 08:52 10/16/20 03:14 Zolpidem Tartrate 5 Mg Tab PO 5 mg HSPRN PRN Administration Insomnia - Exam General Appearance: awake alert Eye: anicteric sclera ENT: normocephalic atraumatic Neck: supple Heart: RRR Respiratory: rales, rhonchi Gastrointestinal: soft, non-tender Skin: no rashes Psychiatric: normal affect, normal behavior Hosp A/P - Plan Hosp A/P (1) Acute respiratory failure with hypoxia Code(s): J96.01 - ACUTE RESPIRATORY FAILURE WITH HYPOXIA Status: Acute (2) Pneumonia due to COVID-19 virus Code(s): U07.1 - COVID-19; J12.82 - PNEUMONIA DUE TO CORONAVIRUS DISEASE 2019 Status: Acute (3) Hyperlipidemia Code(s): E78.5 - HYPERLIPIDEMIA, UNSPECIFIED Status: Chronic (4) Hypertension Code(s): I10 - ESSENTIAL (PRIMARY) HYPERTENSION Status: Chronic Qualifiers: Hypertension type: essential hypertension Qualified Code(s): I10 - Essential (primary) hypertension - Plan Continue BiPAP She did not qualify for remdesivir. Status post convalescent plasma. Continue cefepime for empiric coverage for bacterial pneumonia. Continue IV Solu-Medrol. Continue vitamin C and zinc. Patient's daughter updated by bedside.
[2020-10-16] MEDS: Amino Acids 4.25 %/Dextrose 5% 1,000 ML IV SCH (15:54)
--- NOTE | 2020-10-16 16:29 | PDOC.PALPN ---
Palliative Progress Note - Subjective Remains on Bipap, saturation at 92% when taking medications. 60% FiO2, mildly elevated systolic bp. Unable to fully address review of symptoms. Mrs Kevon gave a "thumbs up". Daughter at bedside. - Objective Vital Signs: Vital Signs - Most Recent Temp Pulse Resp BP Pulse Ox 97.1 F L 63 31 H 142/70 H 93 L 10/16/20 14:00 10/16/20 16:25 10/16/20 16:25 10/16/20 14:00 10/16/20 16:25 - Physical Exam Constitutional: ill appearing HEENT: moist MMs, PERRLA Respiratory: no wheezing, diminished lung sound, labored respirations Deviation from normal: mildly adventicious Cardiovascular: RRR Gastrointestinal: soft, non-tender Genitourinary: incontinent Musculoskeletal: no cyanosis, no clubbing Neurology: moves all 4 limbs, no focal deficits Skin: cap refill <2 seconds, no lesions, fragile Psychiatric: A&O x 3 - Assessment (1) Palliative care encounter Code(s): Z51.5 - ENCOUNTER FOR PALLIATIVE CARE Current Visit: Yes Status: Acute (2) Acute respiratory failure with hypoxia Code(s): J96.01 - ACUTE RESPIRATORY FAILURE WITH HYPOXIA Current Visit: Yes Status: Acute (3) Pneumonia due to COVID-19 virus Code(s): U07.1 - COVID-19; J12.82 - PNEUMONIA DUE TO CORONAVIRUS DISEASE 2019 Current Visit: Yes Status: Acute (4) Hyperlipidemia Code(s): E78.5 - HYPERLIPIDEMIA, UNSPECIFIED Current Visit: Yes Status: Chronic (5) Hypertension Code(s): I10 - ESSENTIAL (PRIMARY) HYPERTENSION Current Visit: Yes Status: Chronic Qualifiers: Hypertension type: essential hypertension Qualified Code(s): I10 - Essential (primary) hypertension - Plan Plan: Reviewed slow progress of Covid recovery. Discussed hopeful for eventual transition to Highflow. She continues to receive abx, and steroids. Did receive convalescent plasma. Confirmed DNAR status, although family and patient hopeful for continued recovery she does not desire to be intubated or have CPR. Palliative care will sign off as current goals are met. If we can provide assistance in the future please re consult our team Thank you for this very appropriate consult. [25] minutes spent on this encounter with >50% of the time in counseling and coordination of care. - ROS Constitutional: alert, weakness Respiratory: shortness of breath with extertion, other (cough) Cardiology: other (Denies palpitations, chest pain) Gastrointestinal: other (Denies nausea, vomiting) Neurological: other
[2020-10-16] MEDS: Atorvastatin Calcium 10 MG TAB PO SCH (20:12)
[2020-10-16] MEDS: Labetalol HCl 100 MG/20 ML VIAL SLOW IVP PRN (21:04)
[2020-10-17] MEDS: Albuterol 200 PUFF (6.7GM INHALER) INH SCH ×4 (00:27→22:02)
[2020-10-17] MEDS: methylPREDNISolone Sod Succ 40 MG VIAL IVP SCH ×3 (00:27→21:59)
[2020-10-17] MEDS: Zolpidem Tartrate 5 MG TAB PO PRN (00:28)
[2020-10-17] MEDS: Mometasone 200 MCG/Formoterol 5 MCG 120 PUFF INHALER INH SCH ×2 (06:31→22:03)
[2020-10-17] MEDS: Labetalol HCl 100 MG/20 ML VIAL SLOW IVP PRN ×3 (06:40→21:59)
--- NOTE | 2020-10-17 08:47 | RAD ---
PORTABLE CHEST: INDICATION: Viral pneumonia followup. COMPARISON: 10/12/2020. FINDINGS: There is now a small right apical pneumothorax. Hazy [id number]-rhrvh-[id number] infiltrate is seen in the lung bases bilaterally slightly more extensive on th e left. The infiltrative changes overall appear improved when compared to 10/12/2020. IMPRESSION: 1. Hazy bibasilar infiltrates again noted, although slightly improved. 2. Small right apical pneumothorax now noted. Findings were related to Dunia, patient's nurse, on [address] [place] [address] at the time of this dictation. CODE CR POS: OFF
[2020-10-17] MEDS: Cefepime 1 GM in Sodium Chloride 0.9% 100 ML IVPB SCH ×2 (08:53→22:06)
[2020-10-17] MEDS: Enoxaparin Sodium 60 MG/0.6 ML SYRINGE SC SCH ×2 (08:53→21:58)
[2020-10-17] MEDS: Zinc Sulfate 220 MG CAP PO SCH (08:55)
[2020-10-17] MEDS: Ascorbic Acid 500 mg Chewable Tablet PO SCH (08:55)
[2020-10-17] MEDS: Cholecalciferol 1,000 UNITS (25 MCG) TAB PO SCH (08:55)
[2020-10-17] MEDS: Furosemide 20 MG/2 ML VIAL SLOW IVP SCH (08:55)
[2020-10-17] MEDS: Saccharomyces boulardii 250 MG CAP PO SCH (08:55)
[2020-10-17] MEDS: Carvedilol 6.25 MG TAB PO SCH ×2 (08:55→16:32)
[2020-10-17] MEDS: Pantoprazole 40 MG VIAL IVP SCH (08:56)
--- NOTE | 2020-10-17 10:30 | PRG ---
DATE OF SERVICE: SUBJECTIVE: This morning, she is on BiPAP with 40% FiO2, sats are 92%. OBJECTIVE: VITAL SIGNS: Temperature 97, pulse 57, blood pressure . CHEST: Decreased breath sounds. No wheezing. CARDIAC: Normal S1, S2. No gallops. DIAGNOSTIC STUDIES: X-ray shows a very small right apical pneumothorax. ASSESSMENT: Lucas positive pneumonia, respiratory failure. PLAN: She is a do not resuscitate. Can get on high-flow, so we can decrease a positive pressure. Empiric antibiotics. I am going to get on the x-ray in the morning, make sure the pneumothorax is not increased. Otherwise, she may very well require a small bore chest tube on the right side. Job ID: [id number]
[2020-10-17] MEDS: Amino Acids 4.25 %/Dextrose 5% 1,000 ML IV SCH (12:48)
--- NOTE | 2020-10-17 16:07 | PDOC.HOSPP ---
- Subjective Encounter Date: 10/17/20 Encounter Time: 07:00 Subjective: Patient seen for follow-up regarding hypoxic respiratory failure, patient has been transitioned from BiPAP to high flow oxygen. - Objective Vital Signs & Weight: Vital Signs (12 hours) Temp Pulse Resp BP BP Pulse Ox 10/17/20 12:50 97.4 F L 64 18 170/86 H 94 L 10/17/20 11:21 64 189/92 H 10/17/20 11:10 97.9 F 67 20 189/92 H 92 L 10/17/20 09:43 64 20 188/102 H 92 L 10/17/20 08:56 94 L 10/17/20 08:55 166/79 H 10/17/20 07:44 97.5 F L 57 L 24 H 166/79 H 94 L 10/17/20 06:40 61 175/81 H 10/17/20 06:34 66 30 H 94 L 10/17/20 06:00 97.9 F 61 24 H 175/81 H 90 L Weight Admit Weight 134 lb Weight 134 lb I&O: 10/16/20 10/17/20 10/18/20 06:59 06:59 06:59 Intake Total 352 721 8892 Output Total 1450 900 700 Balance -710 -700 689 Result Diagrams: 10/14/20 05:08 10/14/20 05:08 Additional Labs: Labs and MAR reviewed by me EKG Reviewed by me: Yes (Telemetry shows normal sinus rhythm) Hospitalist ROS - Review of Systems Respiratory: reports: cough, dry, SOB with excertion Genitourinary: denies: dysuria, frequency, incontinence, hematuria, retention Skin: denies: rash, lesions, kobe, bruising - Medication Medications: Active Medications Generic Name Dose Route Start Last Admin Trade Name Freq PRN Reason Stop Dose Admin Acetaminophen 650 mg 10/07/20 15:27 10/11/20 07:43 Acetaminophen 325 Mg Tab PO 650 mg Q4H PRN Administration Headache/Fever/Mild Pain (1-3) Albuterol Sulfate 2 puff 10/11/20 13:00 10/17/20 10:50 Albuterol 200 Puff (6.7gm Inhaler) INH 2 puff [id number] MAY Administration Ascorbic Acid 1,000 mg 10/08/20 09:00 10/17/20 08:55 Ascorbic Acid 500 Mg Chewable Tablet PO 1,000 mg DAILY MAY Administration Atorvastatin Calcium 10 mg 10/08/20 21:00 10/16/20 20:12 Atorvastatin Calcium 10 Mg Tab PO 10 mg HS MAY Administration Carvedilol 6.25 mg 10/13/20 17:00 10/17/20 08:55 Carvedilol 6.25 Mg Tab PO 6.25 mg BID-WM MAY Administration Cholecalciferol 1,000 units 10/08/20 09:00 10/17/20 08:55 Cholecalciferol 1,000 Units (25 Mcg) Tab PO 1,000 units DAILY MAY Administration Enoxaparin Sodium 60 mg 10/12/20 21:00 10/17/20 08:53 Enoxaparin Sodium 60 Mg/0.6 Ml Syringe SC 60 mg 0900,2100 MAY Administration Amino Acids/Dextrose 1,000 mls @ 50 mls/hr 10/16/20 11:15 10/17/20 12:48 Clinimix 4.25/5 IV 1,000 mls INF MAY Administration Cefepime HCl 1 gm/ Sodium 100 mls @ 200 mls/hr 10/16/20 21:00 10/17/20 08:53 Chloride IVPB 100 mls 0900,2100 MAY Administration Labetalol HCl 10 mg 10/12/20 18:45 10/17/20 11:21 Labetalol Hcl 100 Mg/20 Ml Vial SLOW IVP 10 mg Q4H PRN Administration SBP GREATER THAN 160 Mometasone Furoate/Formoterol Fumar 2 puff 10/13/20 18:30 10/17/20 06:31 Mometasone 200 Mcg/Formoterol 5 Mcg 120 Puff Inhaler INH 2 puff BID-RT MAY Administration Ondansetron HCl 4 mg 10/08/20 08:52 10/09/20 12:14 Ondansetron Odt 4 Mg Tab PO 4 mg Q6H PRN Administration Nausea/Vomiting Pantoprazole Sodium 40 mg 10/13/20 09:00 10/17/20 08:56 Pantoprazole 40 Mg Vial IVP 40 mg DAILY MAY Administration Saccharomyces Boulardii 250 mg 10/11/20 09:00 10/17/20 08:55 Saccharomyces Boulardii 250 Mg Cap PO 250 mg DAILY MAY Administration Senna/Docusate Sodium 2 tab 10/08/20 08:52 10/16/20 08:17 Senokot S 8.6-50 Mg Tab PO 2 tab BIDPRN PRN Administration Constipation Zinc Sulfate 220 mg 10/08/20 09:00 10/17/20 08:55 Zinc Sulfate 220 Mg Cap PO 220 mg DAILY MAY Administration Zolpidem Tartrate 5 mg 10/08/20 08:52 10/16/20 03:14 Zolpidem Tartrate 5 Mg Tab PO 5 mg HSPRN PRN Administration Insomnia - Exam General Appearance: awake alert Eye: anicteric sclera ENT: moist mucosa Neck: supple Heart: RRR Respiratory: CTAB Gastrointestinal: soft, non-tender Skin: no rashes Psychiatric: normal affect, normal behavior Hosp A/P - Plan Hosp A/P (1) Acute respiratory failure with hypoxia Code(s): J96.01 - ACUTE RESPIRATORY FAILURE WITH HYPOXIA Status: Acute (2) Pneumonia due to COVID-19 virus Code(s): U07.1 - COVID-19; J12.82 - PNEUMONIA DUE TO CORONAVIRUS DISEASE 2019 Status: Acute (3) Hyperlipidemia Code(s): E78.5 - HYPERLIPIDEMIA, UNSPECIFIED Status: Chronic (4) Hypertension Code(s): I10 - ESSENTIAL (PRIMARY) HYPERTENSION Status: Chronic Qualifiers: Hypertension type: essential hypertension Qualified Code(s): I10 - Essential (primary) hypertension - Plan Continue high flow oxygen. She did not qualify for remdesivir. Patient got convalescent plasma. Continue cefepime for empiric coverage for bacterial pneumonia. Patient is on IV Solu-Medrol. Continue vitamin C and zinc. Patient's daughter updated by bedside. Maintain oral intake of diet.
[2020-10-17] MEDS: Atorvastatin Calcium 10 MG TAB PO SCH (22:05)
[2020-10-18] MEDS: Albuterol 200 PUFF (6.7GM INHALER) INH SCH ×3 (03:24→20:56)
[2020-10-18 05:39] LABS: #Lymphocytes 0.7 thou/uL (1.20-3.40); #Monocytes 0.3 thou/uL (0.11-0.59); #Neutrophils 11.6 thou/uL (1.40-6.50); %Basophils 0.1 % (0.0-1.0); %Lymphocytes 5.4 % (21.0-51.0); %Monocytes 2.5 % (0.0-10.0); %Neutrophils 91.9 % (42.0-75.0); Hemoglobin 11.5 g/dL (12.0-16.0); Mean Corpuscular Hemoglobin 28.5 pg (27.0-31.0); Mean Corpuscular Volume 86.5 fL (78.0-98.0); Mean Platelet Volume 7.3 fL (7.4-10.4); Platelet Count 250 thou/uL (130-400); RBC Distribution Width 12.1 % (11.5-14.5); Red Blood Cell (RBC) Count 4.03 mill/uL (4.20-5.40); White Blood Cell (WBC) Count 12.6 thou/uL (4.8-10.8)
[2020-10-18 05:56] LABS: Anion Gap 13 mmol/L (10-20); BUN (Urea Nitrogen) 30 mg/dL (9.8-20.1); Calc. Creatinine Clearance 65 mL/min (70-130); Carbon Dioxide 26 mmol/L (23-31); Chloride 98 mmol/L (98-107); Glucose 273 mg/dL (83-110); Potassium 3.6 mmol/L (3.5-5.1); Sodium 133 mmol/L (136-145)
[2020-10-18] MEDS: Labetalol HCl 100 MG/20 ML VIAL SLOW IVP PRN ×2 (06:42→09:51)
--- NOTE | 2020-10-18 08:54 | RAD ---
PORTABLE CHEST: Date: 10/18/2020 PROVIDED CLINICAL HISTORY: Pneumothorax. FINDINGS: Comparison made with study dated 10/17/2020. The cardiac and mediastinal silhouette is unchanged in appearance. Small right apical pneumothorax pe rsists, less conspicuous than on prior. No focal consolidation or pleural fluid evident. IMPRESSION: Small right apical pneumothorax, less conspicuous than on prior. POS: MARILYNN
[2020-10-18] MEDS: Cefepime 1 GM in Sodium Chloride 0.9% 100 ML IVPB SCH ×2 (09:01→20:59)
[2020-10-18] MEDS: Enoxaparin Sodium 60 MG/0.6 ML SYRINGE SC SCH ×2 (09:03→20:59)
[2020-10-18] MEDS: Carvedilol 6.25 MG TAB PO SCH ×2 (09:03→17:41)
[2020-10-18] MEDS: Cholecalciferol 1,000 UNITS (25 MCG) TAB PO SCH (09:03)
[2020-10-18] MEDS: Zinc Sulfate 220 MG CAP PO SCH (09:03)
[2020-10-18] MEDS: Ascorbic Acid 500 mg Chewable Tablet PO SCH (09:03)
[2020-10-18] MEDS: Saccharomyces boulardii 250 MG CAP PO SCH (09:04)
[2020-10-18] MEDS: Pantoprazole 40 MG VIAL IVP SCH (09:04)
[2020-10-18] MEDS: methylPREDNISolone Sod Succ 40 MG VIAL IVP SCH ×2 (09:04→23:05)
[2020-10-18] MEDS ORDERED: Amlodipine 10 MG TAB PO SCH (10:15)
[2020-10-18] MEDS: Mometasone 200 MCG/Formoterol 5 MCG 120 PUFF INHALER INH SCH ×2 (15:18→20:56)
--- NOTE | 2020-10-18 15:42 | PRG ---
DATE OF SERVICE: 10/18/2020 The patient continues to have stable vital signs. She is still on high-flow oxygen. Blood pressures been elevated as high as 282/105. Chest x-ray shows a tiny pneumothorax. It does not warrant placement of a chest tube. I will continue with current supportive care measures and continue to follow the chest radiograph. Blood pressure control may be helpful as well. Job ID: [id number]
--- NOTE | 2020-10-18 17:40 | PDOC.HOSPP ---
- Subjective Encounter Date: 10/18/20 Encounter Time: 12:30 Subjective: Patient seen in follow-up regarding respiratory failure. No new complaints. - Objective Vital Signs & Weight: Vital Signs (12 hours) Temp Pulse Resp BP BP Pulse Ox 10/18/20 14:05 98.2 F 58 L 18 167/81 H 99 10/18/20 11:50 98.3 F 55 L 18 195/90 H 95 10/18/20 10:05 97.9 F 66 20 202/105 H 91 L 10/18/20 09:51 67 205/112 H 10/18/20 08:05 97.9 F 67 18 170/90 H 91 L 10/18/20 07:42 93 L 10/18/20 06:42 62 165/98 H 10/18/20 06:00 96.5 F L 62 18 96 Weight Admit Weight 134 lb Weight 134 lb I&O: 10/17/20 10/18/20 10/19/20 06:59 06:59 06:59 Intake Total 200 2835 480 Output Total 900 900 750 Balance -700 1935 -270 Result Diagrams: 10/18/20 05:26 10/18/20 05:26 Additional Labs: I reviewed patient's labs and MAR Hospitalist ROS - Review of Systems Respiratory: reports: SOB with excertion Cardiovascular: denies: chest pain, palpitations, orthopnea, paroxysmal noc. dyspnea, edema, light headedness Gastrointestinal: denies: nausea, vomiting, abdominal pain, diarrhea, constipation, melena, hematochezia - Medication Medications: Active Medications Generic Name Dose Route Start Last Admin Trade Name Marekq PRN Reason Stop Dose Admin Acetaminophen 650 mg 10/07/20 15:27 10/11/20 07:43 Acetaminophen 325 Mg Tab PO 650 mg Q4H PRN Administration Headache/Fever/Mild Pain (1-3) Albuterol Sulfate 2 puff 10/11/20 13:00 10/18/20 06:14 Albuterol 200 Puff (6.7gm Inhaler) INH 2 puff [id number] MAY Administration Ascorbic Acid 1,000 mg 10/08/20 09:00 10/18/20 09:03 Ascorbic Acid 500 Mg Chewable Tablet PO 1,000 mg DAILY MAY Administration Atorvastatin Calcium 10 mg 10/08/20 21:00 10/17/20 22:05 Atorvastatin Calcium 10 Mg Tab PO 10 mg HS MAY Administration Carvedilol 6.25 mg 10/13/20 17:00 10/18/20 09:03 Carvedilol 6.25 Mg Tab PO 6.25 mg BID-WM MAY Administration Cholecalciferol 1,000 units 10/08/20 09:00 10/18/20 09:03 Cholecalciferol 1,000 Units (25 Mcg) Tab PO 1,000 units DAILY MAY Administration Enoxaparin Sodium 60 mg 10/12/20 21:00 10/18/20 09:03 Enoxaparin Sodium 60 Mg/0.6 Ml Syringe SC 60 mg 09,2099 MAY Administration Cefepime HCl 1 gm/ Sodium 100 mls @ 200 mls/hr 10/16/20 21:00 10/18/20 09:01 Chloride IVPB 100 mls 899,2099 [facility] Administration Labetalol HCl 10 mg 10/12/20 18:45 10/18/20 09:51 Labetalol Hcl 100 Mg/20 Ml Vial SLOW IVP 10 mg Q4H PRN Administration SBP GREATER THAN 160 Methylprednisolone Sodium Succinate 40 mg 10/17/20 21:00 10/18/20 09:04 Methylprednisolone Sod Succ 40 Mg Vial IVP 40 mg BID [facility] Administration Mometasone Furoate/Formoterol Fumar 2 puff 10/13/20 18:30 10/18/20 15:18 Mometasone 200 Mcg/Formoterol 5 Mcg 120 Puff Inhaler INH Not Given BID-RT [facility] Ondansetron HCl 4 mg 10/08/20 08:52 10/09/20 12:14 Ondansetron Odt 4 Mg Tab PO 4 mg Q6H PRN Administration Nausea/Vomiting Pantoprazole Sodium 40 mg 10/13/20 09:00 10/18/20 09:04 Pantoprazole 40 Mg Vial IVP 40 mg DAILY [facility] Administration Saccharomyces Boulardii 250 mg 10/11/20 09:00 10/18/20 09:04 Saccharomyces Boulardii 250 Mg Cap PO 250 mg DAILY MAY Administration Senna/Docusate Sodium 2 tab 10/08/20 08:52 10/16/20 08:17 Senokot S 8.6-50 Mg Tab PO 2 tab BIDPRN PRN Administration Constipation Zinc Sulfate 220 mg 10/08/20 09:00 10/18/20 09:03 Zinc Sulfate 220 Mg Cap PO 220 mg DAILY MAY Administration Zolpidem Tartrate 5 mg 10/08/20 08:52 10/16/20 03:14 Zolpidem Tartrate 5 Mg Tab PO 5 mg HSPRN PRN Administration Insomnia - Exam General Appearance: awake alert Eye: PERRL ENT: normocephalic atraumatic Neck: supple Heart: RRR Respiratory: rhonchi Gastrointestinal: soft Skin: no rashes Psychiatric: normal affect Hosp A/P - Plan Hosp A/P (1) Acute respiratory failure with hypoxia Code(s): J96.01 - ACUTE RESPIRATORY FAILURE WITH HYPOXIA Status: Acute (2) Pneumonia due to COVID-19 virus Code(s): U07.1 - COVID-19; J12.82 - PNEUMONIA DUE TO CORONAVIRUS DISEASE 2018 Status: Acute (3) Hyperlipidemia Code(s): E78.5 - HYPERLIPIDEMIA, UNSPECIFIED Status: Chronic (4) Hypertension Code(s): I10 - ESSENTIAL (PRIMARY) HYPERTENSION Status: Chronic Qualifiers: Hypertension type: essential hypertension Qualified Code(s): I10 - Essential (primary) hypertension - Plan Patient continues to be on high flow oxygen. She did not qualify for remdesivir. Status post convalescent plasma. Continue cefepime for empiric coverage for bacterial pneumonia. Continue IV Solu-Medrol. Continue vitamin C and zinc. Patient's daughter updated by bedside. Patient's oral intake is improved, stop PPN.
[2020-10-18] MEDS: Atorvastatin Calcium 10 MG TAB PO SCH (21:00)
[2020-10-19] MEDS: Albuterol 200 PUFF (6.7GM INHALER) INH SCH ×3 (01:22→21:42)
[2020-10-19] MEDS: Labetalol HCl 100 MG/20 ML VIAL SLOW IVP PRN (03:05)
[2020-10-19 06:01] LABS: #Lymphocytes 0.7 thou/uL (1.20-3.40); #Monocytes 0.2 thou/uL (0.11-0.59); %Basophils 0.2 % (0.0-1.0); %Eosinophils 0.2 % (0.0-10.0); %Lymphocytes 5.3 % (21.0-51.0); %Monocytes 1.9 % (0.0-10.0); %Neutrophils 92.4 % (42.0-75.0); Hemoglobin 12.7 g/dL (12.0-16.0); Mean Corpuscular HGB CONC 32.5 g/dL (32.0-36.0); Mean Corpuscular Hemoglobin 28.4 pg (27.0-31.0); Mean Corpuscular Volume 87.2 fL (78.0-98.0); Mean Platelet Volume 7.3 fL (7.4-10.4); Platelet Count 256 thou/uL (130-400); RBC Distribution Width 12.3 % (11.5-14.5); Red Blood Cell (RBC) Count 4.46 mill/uL (4.20-5.40)
[2020-10-19] MEDS: Mometasone 200 MCG/Formoterol 5 MCG 120 PUFF INHALER INH SCH ×2 (06:24→21:40)
[2020-10-19] MEDS ORDERED: Amlodipine 5 MG TAB PO SCH ×2 (09:00→11:00)
[2020-10-19] MEDS: Cefepime 1 GM in Sodium Chloride 0.9% 100 ML IVPB SCH ×2 (09:21→21:39)
[2020-10-19] MEDS: Carvedilol 6.25 MG TAB PO SCH ×2 (09:22→17:56)
[2020-10-19] MEDS: Enoxaparin Sodium 60 MG/0.6 ML SYRINGE SC SCH ×2 (09:22→21:38)
[2020-10-19] MEDS: Zinc Sulfate 220 MG CAP PO SCH (09:22)
[2020-10-19] MEDS: Saccharomyces boulardii 250 MG CAP PO SCH (09:23)
[2020-10-19] MEDS: Ascorbic Acid 500 mg Chewable Tablet PO SCH (09:23)
[2020-10-19] MEDS: Cholecalciferol 1,000 UNITS (25 MCG) TAB PO SCH (09:23)
[2020-10-19] MEDS: Pantoprazole 40 MG VIAL IVP SCH (09:24)
[2020-10-19] MEDS: methylPREDNISolone Sod Succ 40 MG VIAL IVP SCH ×2 (09:24→21:39)
[2020-10-19] MEDS ORDERED: Dextrose 5% in Water 1,000 ML IV PRN (12:16)
[2020-10-19] MEDS ORDERED: Dextrose 50% Abboject 50 ML SYRINGE SLOW IVP PRN (12:16)
--- NOTE | 2020-10-19 13:40 | PDOC.HOSPP ---
- Subjective Encounter Date: 10/19/20 Encounter Time: 07:00 Subjective: Patient seen for follow-up, for acute hypoxic respiratory failure. Eating better, no new complaints. - Objective Vital Signs & Weight: Vital Signs (12 hours) Temp Pulse Resp BP BP Pulse Ox 10/19/20 11:36 97.9 F 68 20 159/71 H 94 L 10/19/20 10:50 96 10/19/20 09:24 98.1 F 63 20 175/91 H 98 10/19/20 08:05 97.4 F L 67 20 144/76 H 97 10/19/20 06:24 64 22 H 97 10/19/20 05:43 98.3 F 92 24 H 92 L 10/19/20 05:19 98.3 F 65 18 136/74 92 L 10/19/20 03:05 65 161/105 H Weight Admit Weight 134 lb Weight 134 lb I&O: 10/18/20 10/19/20 10/20/20 06:59 06:59 06:59 Intake Total 2835 700 794 Output Total 900 750 750 Balance 1935 -50 44 Result Diagrams: 10/19/20 05:31 10/18/20 05:26 Additional Labs: Labs and MAR reviewed by me EKG Reviewed by me: Yes (Telemetry shows normal sinus rhythm) Hospitalist ROS - Review of Systems Respiratory: denies: cough, dry, shortness of breath, hemoptysis, SOB with excertion, pleuritic pain, sputum, wheezing Cardiovascular: denies: chest pain, palpitations, orthopnea, paroxysmal noc. dyspnea, edema, light headedness - Medication Medications: Active Medications Generic Name Dose Route Start Last Admin Trade Name Freq PRN Reason Stop Dose Admin Acetaminophen 650 mg 10/07/20 15:27 10/11/20 07:43 Acetaminophen 325 Mg Tab PO 650 mg Q4H PRN Administration Headache/Fever/Mild Pain (1-3) Albuterol Sulfate 2 puff 10/11/20 13:00 10/19/20 06:24 Albuterol 200 Puff (6.7gm Inhaler) INH 2 puff [id number] MAY Administration Ascorbic Acid 1,000 mg 10/08/20 09:00 10/19/20 09:23 Ascorbic Acid 500 Mg Chewable Tablet PO 1,000 mg DAILY MAY Administration Atorvastatin Calcium 10 mg 10/08/20 21:00 10/18/20 21:00 Atorvastatin Calcium 10 Mg Tab PO 10 mg HS MAY Administration Carvedilol 6.25 mg 10/13/20 17:00 10/19/20 09:22 Carvedilol 6.25 Mg Tab PO 6.25 mg BID-WM MAY Administration Cholecalciferol 1,000 units 10/08/20 09:00 10/19/20 09:23 Cholecalciferol 1,000 Units (25 Mcg) Tab PO 1,000 units DAILY MAY Administration Enoxaparin Sodium 60 mg 10/12/20 21:00 10/19/20 09:22 Enoxaparin Sodium 60 Mg/0.6 Ml Syringe SC 60 mg 0900,2100 MAY Administration Cefepime HCl 1 gm/ Sodium 100 mls @ 200 mls/hr 10/16/20 21:00 10/19/20 09:21 Chloride IVPB 100 mls 0900,2100 MAY Administration Labetalol HCl 10 mg 10/12/20 18:45 10/19/20 03:05 Labetalol Hcl 100 Mg/20 Ml Vial SLOW IVP 10 mg Q4H PRN Administration SBP GREATER THAN 160 Methylprednisolone Sodium Succinate 40 mg 10/17/20 21:00 10/19/20 09:24 Methylprednisolone Sod Succ 40 Mg Vial IVP 40 mg BID MAY Administration Mometasone Furoate/Formoterol Fumar 2 puff 10/13/20 18:30 10/19/20 06:24 Mometasone 200 Mcg/Formoterol 5 Mcg 120 Puff Inhaler INH 2 puff BID-RT MAY Administration Ondansetron HCl 4 mg 10/08/20 08:52 10/09/20 12:14 Ondansetron Odt 4 Mg Tab PO 4 mg Q6H PRN Administration Nausea/Vomiting Pantoprazole Sodium 40 mg 10/13/20 09:00 10/19/20 09:24 Pantoprazole 40 Mg Vial IVP 40 mg DAILY MAY Administration Saccharomyces Boulardii 250 mg 10/11/20 09:00 10/19/20 09:23 Saccharomyces Boulardii 250 Mg Cap PO 250 mg DAILY MAY Administration Senna/Docusate Sodium 2 tab 10/08/20 08:52 10/16/20 08:17 Senokot S 8.6-50 Mg Tab PO 2 tab BIDPRN PRN Administration Constipation Sodium Chloride 10 ml 10/18/20 21:00 10/19/20 09:24 Flush - Normal Saline 10 Ml Syringe IVF 10 ml Q12HR MAY Administration Zinc Sulfate 220 mg 10/08/20 09:00 10/19/20 09:22 Zinc Sulfate 220 Mg Cap PO 220 mg DAILY MAY Administration Zolpidem Tartrate 5 mg 10/08/20 08:52 10/16/20 03:14 Zolpidem Tartrate 5 Mg Tab PO 5 mg HSPRN PRN Administration Insomnia - Exam Eye: anicteric sclera ENT: normocephalic atraumatic Neck: supple Heart: RRR Respiratory: rhonchi Gastrointestinal: non-tender Skin: no rashes Psychiatric: normal affect, normal behavior Hosp A/P - Plan Hosp A/P (1) Acute respiratory failure with hypoxia Code(s): J96.01 - ACUTE RESPIRATORY FAILURE WITH HYPOXIA Status: Acute (2) Pneumonia due to COVID-19 virus Code(s): U07.1 - COVID-19; J12.82 - PNEUMONIA DUE TO CORONAVIRUS DISEASE 2019 Status: Acute (3) Hyperlipidemia Code(s): E78.5 - HYPERLIPIDEMIA, UNSPECIFIED Status: Chronic (4) Hypertension Code(s): I10 - ESSENTIAL (PRIMARY) HYPERTENSION Status: Chronic Qualifiers: Hypertension type: essential hypertension Qualified Code(s): I10 - Esse ntial (primary) hypertension - Plan Patient continues to be on high flow oxygen. Slight decrease in oxygen requirement today. Status post convalescent plasma. She did not qualify for remdesivir. Continue cefepime for empiric coverage for bacterial pneumonia. Continue IV Solu-Medrol. Continue vitamin C and zinc. Patient's daughter updated by bedside.
--- NOTE | 2020-10-19 14:41 | PRG ---
DATE OF SERVICE: 10/19/2020 Concepcion Lund remains stable. She is afebrile. Heart rate is in the 60s, respiratory rate is 20, oximetry is in mid 90s, her FiO2 is down into the range, blood pressure 159/71. There is no x-ray done today. We will do another x-ray tomorrow to follow her tiny pneumothorax. I doubt we will require chest tube placement. Job ID: [id number]
[2020-10-19] MEDS: HumaLOG 300 UNITS/3 ML VIAL SC PRN (17:55)
[2020-10-19] MEDS: Atorvastatin Calcium 10 MG TAB PO SCH (21:39)
[2020-10-20] MEDS: Mometasone 200 MCG/Formoterol 5 MCG 120 PUFF INHALER INH SCH ×4 (05:11→21:21)
[2020-10-20] MEDS: Albuterol 200 PUFF (6.7GM INHALER) INH SCH ×5 (05:14→21:30)
[2020-10-20 06:01] LABS: Anion Gap 12 mmol/L (10-20); BUN (Urea Nitrogen) 20 mg/dL (9.8-20.1); CRP (Inflammatory) Less than 0.50 mg/dL (= or < 0.5); Calc. Creatinine Clearance 73 mL/min (70-130); Calcium 8.3 mg/dL (7.8-10.44); Carbon Dioxide 25 mmol/L (23-31); Chloride 99 mmol/L (98-107); Glucose 197 mg/dL (83-110); Potassium 4.2 mmol/L (3.5-5.1); Sodium 132 mmol/L (136-145)
[2020-10-20 06:06] LABS: Band 1 % (5-11); Hemoglobin 12.7 g/dL (12.0-16.0); Lymphocytes 2 % (21-51); MDiff Complete? YES; Mean Corpuscular HGB CONC 33.8 g/dL (32.0-36.0); Mean Corpuscular Hemoglobin 29.3 pg (27.0-31.0); Mean Corpuscular Volume 86.8 fL (78.0-98.0); Mean Platelet Volume 7.9 fL (7.4-10.4); Monocytes 2 % (0-10); Neutrophil 95 % (42-75); Platelet Count 286 thou/uL (130-400); Platelet Morphology Comment Appears Adequate; RBC Distribution Width 12.5 % (11.5-14.5); Red Blood Cell (RBC) Count 4.32 mill/uL (4.20-5.40)
--- NOTE | 2020-10-20 07:40 | RAD ---
Portable frontal chest radiograph: 10/20/2020 COMPARISON: 10/18/2020 HISTORY: Extubated patient, evaluate for pneumothorax FINDINGS: The prior exam demonstrated a very small pneumothorax in the right lung apex. On this exami nation that pneumothorax cannot be visualized. There is coarse linear interstitial density with superimposed airspace disease within the perihilar regions and both lung bases consistent with Covid pneumonia, unchanged. No pneumothorax is evident on the left. IMPRESSION: Persistent pulmonary parenchymal opacities. No pneumothorax evident on this exam.
[2020-10-20] MEDS: Cefepime 1 GM in Sodium Chloride 0.9% 100 ML IVPB SCH ×2 (09:57→21:19)
[2020-10-20] MEDS: Saccharomyces boulardii 250 MG CAP PO SCH (09:58)
[2020-10-20] MEDS: Enoxaparin Sodium 60 MG/0.6 ML SYRINGE SC SCH ×2 (09:58→21:21)
[2020-10-20] MEDS: Ascorbic Acid 500 mg Chewable Tablet PO SCH (09:58)
[2020-10-20] MEDS: methylPREDNISolone Sod Succ 40 MG VIAL IVP SCH ×2 (09:58→21:21)
[2020-10-20] MEDS: Carvedilol 6.25 MG TAB PO SCH ×2 (09:59→18:20)
[2020-10-20] MEDS: Amlodipine 10 MG TAB PO SCH (09:59)
[2020-10-20] MEDS: Cholecalciferol 1,000 UNITS (25 MCG) TAB PO SCH (09:59)
[2020-10-20] MEDS: Zinc Sulfate 220 MG CAP PO SCH (09:59)
[2020-10-20] MEDS: HumaLOG 300 UNITS/3 ML VIAL SC PRN ×2 (11:46→18:20)
--- NOTE | 2020-10-20 12:56 | PRG ---
DATE OF SERVICE: 10/20/2020 SUBJECTIVE: Concepcion Lund is a 80-year-old female. She is on high-flow, doing well. According to the daughter, she is eating. OBJECTIVE: VITAL SIGNS: Temperature 98, respiratory rate 20, sats 95%, 50 flow rate, 43%, blood pressure 155/84. CHEST: No wheezing, no crackles. CARDIAC: Normal S1. ABDOMEN: No masses. LABORATORY DATA: Sodium is 132. ASSESSMENT: Coronavirus positive pneumonia, respiratory failure, and also pneumothorax. PLAN: I am going to switch her to oral prednisone tomorrow. Continue PT, supportive care. Job ID: [id number]
[2020-10-20] MEDS: Pantoprazole 40 MG VIAL IVP SCH (18:19)
--- NOTE | 2020-10-20 19:27 | PDOC.HOSPP ---
- Subjective Encounter Date: 10/20/20 Encounter Time: 16:00 Subjective: Patient seen in follow-up for hypoxic respiratory failure. No new complaints. - Objective Vital Signs & Weight: Vital Signs (12 hours) Temp Pulse Resp BP Pulse Ox 10/20/20 16:00 97.8 F 69 29 H 159/72 H 94 L 10/20/20 13:22 94 L 10/20/20 11:46 98.1 F 60 20 140/70 92 L 10/20/20 10:05 98.3 F 85 20 155/84 H 95 10/20/20 08:00 98.3 F 85 33 H 147/66 H 96 10/20/20 07:48 96 Weight Admit Weight 134 lb Weight 134 lb I&O: 10/19/20 10/20/20 10/21/20 06:59 06:59 06:59 Intake Total 700 1114 454 Output Total 750 1000 300 Balance -50 114 154 Result Diagrams: 10/20/20 04:58 10/20/20 04:58 Additional Labs: Accuchecks 10/20/20 10/20/20 10/19/20 17:30 10:30 21:38 POC Glucose 217 H 229 H 171 H I reviewed patient's labs and MAR Hospitalist ROS - Review of Systems Cardiovascular: denies: chest pain, palpitations, orthopnea, paroxysmal noc. dys pnea, edema, light headedness Gastrointestinal: denies: nausea, vomiting, abdominal pain, diarrhea, constipation, melena, hematochezia - Medication Medications: Active Medications Generic Name Dose Route Start Last Admin Trade Name Freq PRN Reason Stop Dose Admin Acetaminophen 650 mg 10/07/20 15:27 10/11/20 07:43 Acetaminophen 325 Mg Tab PO 650 mg Q4H PRN Administration Headache/Fever/Mild Pain (1-3) Albuterol Sulfate 2 puff 10/11/20 13:00 10/20/20 17:34 Albuterol 200 Puff (6.7gm Inhaler) INH Not Given [id number] MAY Amlodipine Besylate 10 mg 10/20/20 09:00 10/20/20 09:59 Amlodipine 10 Mg Tab PO 10 mg DAILY MAY Administration Ascorbic Acid 1,000 mg 10/08/20 09:00 10/20/20 09:58 Ascorbic Acid 500 Mg Chewable Tablet PO 1,000 mg DAILY MAY Administration Atorvastatin Calcium 10 mg 10/08/20 21:00 10/19/20 21:39 Atorvastatin Calcium 10 Mg Tab PO 10 mg HS MAY Administration Carvedilol 6.25 mg 10/13/20 17:00 10/20/20 18:20 Carvedilol 6.25 Mg Tab PO 6.25 mg BID-WM MAY Administration Cholecalciferol 1,000 units 10/08/20 09:00 10/20/20 09:59 Cholecalciferol 1,000 Units (25 Mcg) Tab PO 1,000 units DAILY MAY Administration Enoxaparin Sodium 60 mg 10/12/20 21:00 10/20/20 09:58 Enoxaparin Sodium 60 Mg/0.6 Ml Syringe SC 60 mg 09,2099 MAY Administration Cefepime HCl 1 gm/ Sodium 100 mls @ 200 mls/hr 10/16/20 21:00 10/20/20 09:57 Chloride IVPB 100 mls 09,2099 MAY Administration Insulin Human Lispro 0 units 10/19/20 12:16 10/20/20 18:20 Humalog 300 Units/3 Ml Vial SC 3 unit .MILD SLIDING SCALE PRN Administration Mild Correctional Scale Labetalol HCl 10 mg 10/12/20 18:45 10/19/20 03:05 Labetalol Hcl 100 Mg/20 Ml Vial SLOW IVP 10 mg Q4H PRN Administration SBP GREATER THAN 160 Methylprednisolone Sodium Succinate 40 mg 10/17/20 21:00 10/20/20 09:58 Methylprednisolone Sod Succ 40 Mg Vial IVP 40 mg BID MAY Administration Mometasone Furoate/Formoterol Fumar 2 puff 10/13/20 18:30 10/20/20 06:00 Mometasone 200 Mcg/Formoterol 5 Mcg 120 Puff Inhaler INH 2 puff BID-RT MAY Administration Ondansetron HCl 4 mg 10/08/20 08:52 10/09/20 12:14 Ondansetron Odt 4 Mg Tab PO 4 mg Q6H PRN Administration Nausea/Vomiting Pantoprazole Sodium 40 mg 10/13/20 09:00 10/20/20 18:19 Pantoprazole 40 Mg Vial IVP Not Given DAILY MAY Saccharomyces Boulardii 250 mg 10/11/20 09:00 10/20/20 09:58 Saccharomyces Boulardii 250 Mg Cap PO 250 mg DAILY MAY Administration Senna/Docusate Sodium 2 tab 10/08/20 08:52 10/16/20 08:17 Senokot S 8.6-50 Mg Tab PO 2 tab BIDPRN PRN Administration Constipation Sodium Chloride 10 ml 10/18/20 21:00 10/20/20 10:00 Flush - Normal Saline 10 Ml Syringe IVF 10 ml Q12HR MAY Administration Zinc Sulfate 220 mg 10/08/20 09:00 10/20/20 09:59 Zinc Sulfate 220 Mg Cap PO 220 mg DAILY MAY Administration Zolpidem Tartrate 5 mg 10/08/20 08:52 10/16/20 03:14 Zolpidem Tartrate 5 Mg Tab PO 5 mg HSPRN PRN Administration Insomnia - Exam General Appearance: awake alert Eye: anicteric sclera ENT: normocephalic atraumatic Neck: supple Heart: RRR Respiratory: CTAB Gastrointestinal: soft Psychiatric: normal affect, normal behavior Hosp A/P - Plan Hosp A/P (1) Acute respiratory failure with hypoxia Code(s): J96.01 - ACUTE RESPIRATORY FAILURE WITH HYPOXIA Status: Acute (2) Pneumonia due to COVID-19 virus Code(s): U07.1 - COVID-19; J12.82 - PNEUMONIA DUE TO CORONAVIRUS DISEASE 2019 Status: Acute (3) Hyperlipidemia Code(s): E78.5 - HYPERLIPIDEMIA, UNSPECIFIED Status: Chronic (4) Hypertension Code(s): I10 - ESSENTIAL (PRIMARY) HYPERTENSION Status: Chronic Qualifiers: Hypertension type: essential hypertension Qualified Code(s): I10 - Essential (primary) hypertension - Plan Patient still on high flow oxygen. Mild decrease in oxygen requirement today. Status post convalescent plasma. She did not qualify for remdesivir. cefepime for empiric coverage for bacterial pneumonia. Continue IV Solu-Medrol. Continue vitamin C and zinc. Patient's daughter updated by bedside.
[2020-10-20] MEDS: Atorvastatin Calcium 10 MG TAB PO SCH (21:25)
[2020-10-21 05:27] LABS: Hemoglobin 13.2 g/dL (12.0-16.0); MDiff Complete? YES; Mean Corpuscular HGB CONC 34.1 g/dL (32.0-36.0); Mean Corpuscular Hemoglobin 29.6 pg (27.0-31.0); Mean Platelet Volume 7.4 fL (7.4-10.4); Neutrophil 100 % (42-75); Platelet Count 328 thou/uL (130-400); Platelet Morphology Comment Appears Adequate; RBC Distribution Width 12.8 % (11.5-14.5); RBC Morphology Normal; Red Blood Cell (RBC) Count 4.46 mill/uL (4.20-5.40); White Blood Cell (WBC) Count 20.5 thou/uL (4.8-10.8)
[2020-10-21] MEDS: Mometasone 200 MCG/Formoterol 5 MCG 120 PUFF INHALER INH SCH ×3 (05:30→22:08)
[2020-10-21 05:34] LABS: Anion Gap 13 mmol/L (10-20); BUN (Urea Nitrogen) 22 mg/dL (9.8-20.1); Calc. Creatinine Clearance 75 mL/min (70-130); Calcium 8.4 mg/dL (7.8-10.44); Carbon Dioxide 24 mmol/L (23-31); Chloride 98 mmol/L (98-107); Glucose 226 mg/dL (83-110); Potassium 4.3 mmol/L (3.5-5.1); Sodium 131 mmol/L (136-145)
[2020-10-21] MEDS: HumaLOG 300 UNITS/3 ML VIAL SC PRN ×3 (05:52→17:23)
[2020-10-21] MEDS: Albuterol 200 PUFF (6.7GM INHALER) INH SCH ×3 (06:17→22:08)
--- NOTE | 2020-10-21 08:42 | RAD ---
Portable upright frontal chest radiograph: 10/21/2020 COMPARISON: 10/20/2020 HISTORY: Ventilated patient FINDINGS: There is no endotracheal tube present. Coarse linear interstitial opacity noted in the daquan hilar regions and both lung bases with superimposed groundglass opacity, not significantly changed and suspicious for bilateral Covid pneumonia. IMPRESSION: No significant interval change.
[2020-10-21] MEDS: Carvedilol 6.25 MG TAB PO SCH ×2 (09:08→17:23)
[2020-10-21] MEDS: Enoxaparin Sodium 60 MG/0.6 ML SYRINGE SC SCH ×2 (09:08→20:49)
[2020-10-21] MEDS: Ascorbic Acid 500 mg Chewable Tablet PO SCH (09:09)
[2020-10-21] MEDS: Amlodipine 10 MG TAB PO SCH (09:09)
[2020-10-21] MEDS: Saccharomyces boulardii 250 MG CAP PO SCH (09:09)
[2020-10-21] MEDS: Cholecalciferol 1,000 UNITS (25 MCG) TAB PO SCH (09:09)
[2020-10-21] MEDS: Cefepime 1 GM in Sodium Chloride 0.9% 100 ML IVPB SCH ×2 (09:09→20:45)
[2020-10-21] MEDS: Zinc Sulfate 220 MG CAP PO SCH (09:09)
[2020-10-21] MEDS: Pantoprazole 40 MG VIAL IVP SCH (09:10)
[2020-10-21] MEDS: methylPREDNISolone Sod Succ 40 MG VIAL IVP SCH ×2 (09:13→20:30)
--- NOTE | 2020-10-21 11:03 | PRG ---
DATE OF SERVICE: 10/21/2020 SUBJECTIVE: Concepcion Lund is a 80-year-old female, remains on high-flow. OBJECTIVE: VITAL SIGNS: Temperature 97, pulse 54, respirations 20, sats are 95% on flow rate of 50, FiO2, blood pressure 160/78. CHEST: No wheezing. No crackles. CARDIAC: Normal S1 and S2. No gallops. ABDOMEN: No masses. LABORATORY DATA: White count 20,000. ASSESSMENT AND PLAN: Lucas positive infection, respiratory failure. X-ray still shows bilateral infiltrates. Empiric antibiotics, steroids, supportive care, PT, we will follow. Job ID: [id number]
--- NOTE | 2020-10-21 13:54 | PDOC.HOSPP ---
- Subjective Encounter Date: 10/21/20 Encounter Time: 07:30 Subjective: Follow-up for hypoxic respiratory failure. No new complaints. - Objective Vital Signs & Weight: Vital Signs (12 hours) Temp Pulse Resp BP Pulse Ox 10/21/20 12:10 97.8 F 61 20 144/71 H 93 L 10/21/20 10:58 98 F 62 25 H 169/78 H 93 L 10/21/20 10:02 62 20 169/78 H 94 L 10/21/20 08:13 99 10/21/20 08:12 97.6 F 54 L 20 140/72 98 10/21/20 07:40 98 10/21/20 05:50 96.1 F L 68 24 H 156/76 H 95 10/21/20 04:00 55 L 20 122/66 94 L 10/21/20 02:00 98.1 F 56 L 20 94 L Weight Admit Weight 134 lb Weight 134 lb I&O: 10/20/20 10/21/20 10/22/20 06:59 06:59 06:59 Intake Total 1114 1034 837 Output Total 1000 300 Balance 114 734 837 Result Diagrams: 10/21/20 04:51 10/21/20 04:51 Additional Labs: Accuchecks 10/21/20 10/21/20 10/20/20 10:40 05:34 21:26 POC Glucose 196 H 214 H 134 H 10/20/20 17:30 POC Glucose 217 H Labs and MAR reviewed by mn Hospitalist ROS - Review of Systems Respiratory: reports: cough Cardiovascular: denies: chest pain, palpitations, orthopnea, paroxysmal noc. dyspnea, edema, light headedness Gastrointestinal: denies: nausea, vomiting, abdominal pain, diarrhea, constipation, melena, hematochezia - Medication Medications: Active Medications Generic Name Dose Route Start Last Admin Trade Name Freq PRN Reason Stop Dose Admin Acetaminophen 650 mg 10/07/20 15:27 10/11/20 07:43 Acetaminophen 325 Mg Tab PO 650 mg Q4H PRN Administration Headache/Fever/Mild Pain (1-3) Albuterol Sulfate 2 puff 10/11/20 13:00 10/21/20 06:17 Albuterol 200 Puff (6.7gm Inhaler) INH 2 puff [id number] MAY Administration Amlodipine Besylate 10 mg 10/20/20 09:00 10/21/20 09:09 Amlodipine 10 Mg Tab PO 10 mg DAILY MAY Administration Ascorbic Acid 1,000 mg 10/08/20 09:00 10/21/20 09:09 Ascorbic Acid 500 Mg Chewable Tablet PO 1,000 mg DAILY MAY Administration Atorvastatin Calcium 10 mg 10/08/20 21:00 10/20/20 21:25 Atorvastatin Calcium 10 Mg Tab PO 10 mg HS MAY Administration Carvedilol 6.25 mg 10/13/20 17:00 10/21/20 09:08 Carvedilol 6.25 Mg Tab PO 6.25 mg BID-WM MAY Administration Cholecalciferol 1,000 units 10/08/20 09:00 10/21/20 09:09 Cholecalciferol 1,000 Units (25 Mcg) Tab PO 1,000 units DAILY MAY Administration Enoxaparin Sodium 60 mg 10/12/20 21:00 10/21/20 09:08 Enoxaparin Sodium 60 Mg/0.6 Ml Syringe SC 60 mg 09,2099 MAY Administration Cefepime HCl 1 gm/ Sodium 100 mls @ 200 mls/hr 10/16/20 21:00 10/21/20 09:09 Chloride IVPB 100 mls 09,2099 [facility] Administration Insulin Human Lispro 0 units 10/19/20 12:16 10/21/20 11:23 Humalog 300 Units/3 Ml Vial SC 2 unit .MILD SLIDING SCALE PRN Administration Mild Correctional Scale Labetalol HCl 10 mg 10/12/20 18:45 10/19/20 03:05 Labetalol Hcl 100 Mg/20 Ml Vial SLOW IVP 10 mg Q4H PRN Administration SBP GREATER THAN 160 Methylprednisolone Sodium Succinate 40 mg 10/17/20 21:00 10/21/20 09:13 Methylprednisolone Sod Succ 40 Mg Vial IVP 40 mg BID MAY Administration Mometasone Furoate/Formoterol Fumar 2 puff 10/13/20 18:30 10/21/20 05:30 Mometasone 200 Mcg/Formoterol 5 Mcg 120 Puff Inhaler INH 2 puff BID-RT MAY Administration Ondansetron HCl 4 mg 10/08/20 08:52 10/09/20 12:14 Ondansetron Odt 4 Mg Tab PO 4 mg Q6H PRN Administration Nausea/Vomiting Pantoprazole Sodium 40 mg 10/13/20 09:00 10/21/20 09:10 Pantoprazole 40 Mg Vial IVP 40 mg DAILY MAY Administration Saccharomyces Boulardii 250 mg 10/11/20 09:00 10/21/20 09:09 Saccharomyces Boulardii 250 Mg Cap PO 250 mg DAILY MAY Administration Senna/Docusate Sodium 2 tab 10/08/20 08:52 10/16/20 08:17 Senokot S 8.6-50 Mg Tab PO 2 tab BIDPRN PRN Administration Constipation Sodium Chloride 10 ml 10/18/20 21:00 10/21/20 09:10 Flush - Normal Saline 10 Ml Syringe IVF 10 ml Q12HR MAY Administration Zinc Sulfate 220 mg 10/08/20 09:00 10/21/20 09:09 Zinc Sulfate 220 Mg Cap PO 220 mg DAILY MAY Administration Zolpidem Tartrate 5 mg 10/08/20 08:52 10/16/20 03:14 Zolpidem Tartrate 5 Mg Tab PO 5 mg HSPRN PRN Administration Insomnia Hospitalist Exam Vitals: Vital Signs (12 hours) Temp Pulse Resp BP Pulse Ox 10/21/20 12:10 97.8 F 61 20 144/71 H 93 L 10/21/20 10:58 98 F 62 25 H 169/78 H 93 L 10/21/20 10:02 62 20 169/78 H 94 L 10/21/20 08:13 99 10/21/20 08:12 97.6 F 54 L 20 140/72 98 10/21/20 07:40 98 10/21/20 05:50 96.1 F L 68 24 H 156/76 H 95 10/21/20 04:00 55 L 20 122/66 94 L 10/21/20 02:00 98.1 F 56 L 20 94 L Weight Admit Weight 134 lb Weight 134 lb General Appearance: awake alert ENT: normocephalic atraumatic Neck: supple Heart: RRR Respiratory: CTAB Gastrointestinal: soft, non-tender Skin: no rashes Psychiatric: normal affect, normal behavior Hosp A/P - Plan Hosp A/P (1) Acute respiratory failure with hypoxia Code(s): J96.01 - ACUTE RESPIRATORY FAILURE WITH HYPOXIA Status: Acute (2) Pneumonia due to COVID-19 virus Code(s): U07.1 - COVID-19; J12.82 - PNEUMONIA DUE TO CORONAVIRUS DISEASE 2019 Status: Acute (3) Hyperlipidemia Code(s): E78.5 - HYPERLIPIDEMIA, UNSPECIFIED Status: Chronic (4) Hypertension Code(s): I10 - ESSENTIAL (PRIMARY) HYPERTENSION Status: Chronic Qualifiers: Hypertension type: essential hypertension Qualified Code(s): I10 - Essential (primary) hypertension - Plan Continue high flow oxygen. Did not qualify for remdesivir. Received convalescent plasma. Continue IV cefepime. Continue Solu-Medrol, vitamin C and zinc. Ambulate patient.
[2020-10-21] MEDS: Atorvastatin Calcium 10 MG TAB PO SCH (20:30)
[2020-10-22] MEDS: Albuterol 200 PUFF (6.7GM INHALER) INH SCH ×6 (00:01→21:24)
[2020-10-22 05:15] LABS: Band 1 % (5-11); Hemoglobin 13.1 g/dL (12.0-16.0); Lymphocytes 4 % (21-51); MDiff Complete? YES; Mean Corpuscular HGB CONC 33.1 g/dL (32.0-36.0); Mean Corpuscular Hemoglobin 28.8 pg (27.0-31.0); Mean Corpuscular Volume 87.1 fL (78.0-98.0); Mean Platelet Volume 7.3 fL (7.4-10.4); Monocytes 11 % (0-10); Neutrophil 84 % (42-75); Platelet Count 301 thou/uL (130-400); Platelet Morphology Comment Appears Adequate; RBC Distribution Width 13.3 % (11.5-14.5); Red Blood Cell (RBC) Count 4.53 mill/uL (4.20-5.40); White Blood Cell (WBC) Count 22.3 thou/uL (4.8-10.8)
[2020-10-22 05:16] LABS: Anion Gap 12 mmol/L (10-20); BUN (Urea Nitrogen) 19 mg/dL (9.8-20.1); CRP (Inflammatory) Less than 0.50 mg/dL (= or < 0.5); Calc. Creatinine Clearance 86 mL/min (70-130); Calcium 8.4 mg/dL (7.8-10.44); Carbon Dioxide 24 mmol/L (23-31); Chloride 100 mmol/L (98-107); Glucose 136 mg/dL (83-110); Sodium 132 mmol/L (136-145)
[2020-10-22] MEDS: Mometasone 200 MCG/Formoterol 5 MCG 120 PUFF INHALER INH SCH ×2 (05:38→21:24)
--- NOTE | 2020-10-22 08:59 | RAD ---
EXAM: Single view of the chest HISTORY: Ventilated patient with respiratory failure COMPARISON: 10/21/2020 FINDINGS: Single view of the chest shows a normal sized cardiomediastinal silhouette. There is scatte red multifocal infiltrates in the lungs, unchanged. Degenerative changes are seen in the spine. IMPRESSION: Stable multifocal infiltrates
[2020-10-22] MEDS: Cefepime 1 GM in Sodium Chloride 0.9% 100 ML IVPB SCH ×2 (09:08→21:26)
[2020-10-22] MEDS: Amlodipine 10 MG TAB PO SCH (09:08)
[2020-10-22] MEDS: Carvedilol 6.25 MG TAB PO SCH ×2 (09:08→17:17)
[2020-10-22] MEDS: Ascorbic Acid 500 mg Chewable Tablet PO SCH (09:08)
[2020-10-22] MEDS: Enoxaparin Sodium 60 MG/0.6 ML SYRINGE SC SCH ×2 (09:09→21:25)
[2020-10-22] MEDS: methylPREDNISolone Sod Succ 40 MG VIAL IVP SCH ×2 (09:09→21:26)
[2020-10-22] MEDS: Cholecalciferol 1,000 UNITS (25 MCG) TAB PO SCH (09:09)
[2020-10-22] MEDS: Saccharomyces boulardii 250 MG CAP PO SCH (09:10)
[2020-10-22] MEDS: Pantoprazole 40 MG VIAL IVP SCH (09:10)
[2020-10-22] MEDS: Zinc Sulfate 220 MG CAP PO SCH (09:10)
--- NOTE | 2020-10-22 10:19 | PRG ---
DATE OF SERVICE: 10/22/2020 OBJECTIVE: VITAL SIGNS: This morning, temperature 97, pulse 76, saturations are 98% on 4 L, and blood pressure 120/70. CHEST: No wheezing. No crackles. CARDIAC: Normal S1 and S2. No gallops. ABDOMEN: No masses. LABORATORY DATA: D-dimer 150. White count 22,000. X-ray shows bilateral pulmonary infiltrates. ASSESSMENT: 1. Lucas positive pneumonia. 2. Respiratory failure. 3. Severe deconditioning. PLAN: Continue steroids. Continue empiric antibiotics. Continue PT. We will follow. Job ID: [id number]
[2020-10-22] MEDS: HumaLOG 300 UNITS/3 ML VIAL SC PRN ×3 (11:12→21:27)
--- NOTE | 2020-10-22 14:43 | PDOC.HOSPP ---
- Subjective Encounter Date: 10/22/20 Encounter Time: 07:00 Subjective: Patient seen in follow-up regarding respiratory failure. Reports feeling much better. She has been transitioned to oxygen by nasal cannula. - Objective Vital Signs & Weight: Vital Signs (12 hours) Temp Pulse Resp BP Pulse Ox Pulse Ox Pulse Ox 10/22/20 14:05 71 20 161/77 H 92 L 10/22/20 12:05 97.5 F L 64 20 140/64 95 10/22/20 10:06 90 L 91 L 10/22/20 10:05 72 20 153/69 H 88 L 10/22/20 09:08 76 10/22/20 07:30 97.5 F L 76 20 128/74 90 L 10/22/20 05:50 78 14 132/90 97 10/22/20 03:48 97.6 F 54 L 18 137/73 94 L Weight Admit Weight 134 lb Weight 134 lb I&O: 10/21/20 10/22/20 10/23/20 06:59 06:59 06:59 Intake Total 1034 1357 600 Output Total 300 Balance 734 1357 600 Result Diagrams: 10/22/20 04:42 10/22/20 04:42 Additional Labs: Accuchecks 10/22/20 10/21/20 10/21/20 11:04 20:55 16:57 POC Glucose 191 H 133 H 249 H I reviewed patient's labs and MAR Hospitalist ROS - Review of Systems Cardiovascular: denies: chest pain, palpitations, orthopnea, paroxysmal noc. dyspnea, edema, light headedness Gastrointestinal: denies: nausea, vomiting, abdominal pain, diarrhea, con stipation, melena, hematochezia - Medication Medications: Active Medications Generic Name Dose Route Start Last Admin Trade Name Freq PRN Reason Stop Dose Admin Acetaminophen 650 mg 10/07/20 15:27 10/11/20 07:43 Acetaminophen 325 Mg Tab PO 650 mg Q4H PRN Administration Headache/Fever/Mild Pain (1-3) Albuterol Sulfate 2 puff 10/11/20 13:00 10/22/20 05:39 Albuterol 200 Puff (6.7gm Inhaler) INH Not Given [id number] MAY Amlodipine Besylate 10 mg 10/20/20 09:00 10/22/20 09:08 Amlodipine 10 Mg Tab PO 10 mg DAILY MAY Administration Ascorbic Acid 1,000 mg 10/08/20 09:00 10/22/20 09:08 Ascorbic Acid 500 Mg Chewable Tablet PO 1,000 mg DAILY MAY Administration Atorvastatin Calcium 10 mg 10/08/20 21:00 10/21/20 20:30 Atorvastatin Calcium 10 Mg Tab PO 10 mg HS MAY Administration Carvedilol 6.25 mg 10/13/20 17:00 10/22/20 09:08 Carvedilol 6.25 Mg Tab PO 6.25 mg BID-WM MAY Administration Cholecalciferol 1,000 units 10/08/20 09:00 10/22/20 09:09 Cholecalciferol 1,000 Units (25 Mcg) Tab PO 1,000 units DAILY MAY Administration Enoxaparin Sodium 60 mg 10/12/20 21:00 10/22/20 09:09 Enoxaparin Sodium 60 Mg/0.6 Ml Syringe SC 60 mg 0900,2100 MAY Administration Cefepime HCl 1 gm/ Sodium 100 mls @ 200 mls/hr 10/16/20 21:00 10/22/20 09:08 Chloride IVPB 100 mls 0900,2100 MAY Administration Insulin Human Lispro 0 units 10/19/20 12:16 10/22/20 11:12 Humalog 300 Units/3 Ml Vial SC 2 unit .MILD SLIDING SCALE PRN Administration Mild Correctional Scale Labetalol HCl 10 mg 10/12/20 18:45 10/19/20 03:05 Labetalol Hcl 100 Mg/20 Ml Vial SLOW IVP 10 mg Q4H PRN Administration SBP GREATER THAN 160 Methylprednisolone Sodium Succinate 40 mg 10/17/20 21:00 10/22/20 09:09 Methylprednisolone Sod Succ 40 Mg Vial IVP 40 mg BID MAY Administration Mometasone Furoate/Formoterol Fumar 2 puff 10/13/20 18:30 10/22/20 05:38 Mometasone 200 Mcg/Formoterol 5 Mcg 120 Puff Inhaler INH 2 puff BID-RT MAY Administration Ondansetron HCl 4 mg 10/08/20 08:52 10/09/20 12:14 Ondansetron Odt 4 Mg Tab PO 4 mg Q6H PRN Administration Nausea/Vomiting Pantoprazole Sodium 40 mg 10/13/20 09:00 10/22/20 09:10 Pantoprazole 40 Mg Vial IVP 40 mg DAILY MAY Administration Saccharomyces Boulardii 250 mg 10/11/20 09:00 10/22/20 09:10 Saccharomyces Boulardii 250 Mg Cap PO 250 mg DAILY MAY Administration Senna/Docusate Sodium 2 tab 10/08/20 08:52 10/16/20 08:17 Senokot S 8.6-50 Mg Tab PO 2 tab BIDPRN PRN Administration Constipation Sodium Chloride 10 ml 10/18/20 21:00 10/22/20 09:10 Flush - Normal Saline 10 Ml Syringe IVF 10 ml Q12HR MAY Administration Zinc Sulfate 220 mg 10/08/20 09:00 10/22/20 09:10 Zinc Sulfate 220 Mg Cap PO 220 mg DAILY MAY Administration Zolpidem Tartrate 5 mg 10/08/20 08:52 10/16/20 03:14 Zolpidem Tartrate 5 Mg Tab PO 5 mg HSPRN PRN Administration Insomnia Hospitalist Exam Vitals: Vital Signs (12 hours) Temp Pulse Resp BP Pulse Ox Pulse Ox Pulse Ox 10/22/20 14:05 71 20 161/77 H 92 L 10/22/20 12:05 97.5 F L 64 20 140/64 95 10/22/20 10:06 90 L 91 L 10/22/20 10:05 72 20 153/69 H 88 L 10/22/20 09:08 76 10/22/20 07:30 97.5 F L 76 20 128/74 90 L 10/22/20 05:50 78 14 132/90 97 10/22/20 03:48 97.6 F 54 L 18 137/73 94 L Weight Admit Weight 134 lb Weight 134 lb General Appearance: awake alert Eye: anicteric sclera ENT: normocephalic atraumatic Neck: supple Heart: RRR Respiratory: CTAB Gastrointestinal: soft, non-tender Skin: no rashes Psychiatric: normal affect Hosp A/P - Plan Hosp A/P (1) Acute respiratory failure with hypoxia Code(s): J96.01 - ACUTE RESPIRATORY FAILURE WITH HYPOXIA Status: Acute (2) Pneumonia due to COVID-19 virus Code(s): U07.1 - COVID-19; J12.82 - PNEUMONIA DUE TO CORONAVIRUS DISEASE 2019 Status: Acute (3) Hyperlipidemia Code(s): E78.5 - HYPERLIPIDEMIA, UNSPECIFIED Status: Chronic (4) Hypertension Code(s): I10 - ESSENTIAL (PRIMARY) HYPERTENSION Status: Chronic Qualifiers: Hypertension type: essential hypertension Qualified Code(s): I10 - Essential (primary) hypertension - Plan Clinically improved. Try to wean patient off of oxygen. Patient seen by physical therapy service. Inpatient rehab screen. Change diet to heart healthy. Did not qualify for remdesivir. Received convalescent plasma. Continue Solu-Medrol, vitamin C and zinc.
[2020-10-22] MEDS: Atorvastatin Calcium 10 MG TAB PO SCH (21:25)
[2020-10-23] MEDS: Albuterol 200 PUFF (6.7GM INHALER) INH SCH ×4 (01:23→18:46)
[2020-10-23] MEDS: Labetalol HCl 100 MG/20 ML VIAL SLOW IVP PRN (02:25)
[2020-10-23 05:17] LABS: #Lymphocytes 0.7 thou/uL (1.20-3.40); #Monocytes 0.3 thou/uL (0.11-0.59); #Neutrophils 15.9 thou/uL (1.40-6.50); %Eosinophils 0.1 % (0.0-10.0); %Lymphocytes 4.3 % (21.0-51.0); %Monocytes 1.9 % (0.0-10.0); %Neutrophils 93.6 % (42.0-75.0); Hemoglobin 13.4 g/dL (12.0-16.0); Mean Corpuscular HGB CONC 32.6 g/dL (32.0-36.0); Mean Corpuscular Hemoglobin 28.5 pg (27.0-31.0); Mean Corpuscular Volume 87.4 fL (78.0-98.0); Mean Platelet Volume 7.9 fL (7.4-10.4); Platelet Count 242 thou/uL (130-400); RBC Distribution Width 13.2 % (11.5-14.5); Red Blood Cell (RBC) Count 4.69 mill/uL (4.20-5.40)
[2020-10-23 05:36] LABS: Anion Gap 12 mmol/L (10-20); BUN (Urea Nitrogen) 19 mg/dL (9.8-20.1); Calc. Creatinine Clearance 88 mL/min (70-130); Calcium 8.4 mg/dL (7.8-10.44); Carbon Dioxide 24 mmol/L (23-31); Chloride 99 mmol/L (98-107); Glucose 163 mg/dL (83-110); Potassium 4.3 mmol/L (3.5-5.1); Sodium 131 mmol/L (136-145)
[2020-10-23] MEDS: Cefepime 1 GM in Sodium Chloride 0.9% 100 ML IVPB SCH ×2 (08:13→20:50)
[2020-10-23] MEDS: Mometasone 200 MCG/Formoterol 5 MCG 120 PUFF INHALER INH SCH ×2 (08:13→18:47)
[2020-10-23] MEDS: Enoxaparin Sodium 60 MG/0.6 ML SYRINGE SC SCH ×2 (08:15→20:51)
[2020-10-23] MEDS: Pantoprazole 40 MG VIAL IVP SCH (08:15)
[2020-10-23] MEDS: methylPREDNISolone Sod Succ 40 MG VIAL IVP SCH ×2 (08:20→23:38)
[2020-10-23] MEDS: Zinc Sulfate 220 MG CAP PO SCH (08:24)
[2020-10-23] MEDS: Carvedilol 6.25 MG TAB PO SCH ×2 (08:24→17:26)
[2020-10-23] MEDS: Cholecalciferol 1,000 UNITS (25 MCG) TAB PO SCH (08:24)
[2020-10-23] MEDS: Saccharomyces boulardii 250 MG CAP PO SCH (08:24)
[2020-10-23] MEDS: Amlodipine 10 MG TAB PO SCH (08:24)
[2020-10-23] MEDS: Ascorbic Acid 500 mg Chewable Tablet PO SCH (08:24)
--- NOTE | 2020-10-23 09:21 | RAD ---
Chest AP view INDICATION: Follow-up Covid pneumonia COMPARISON: October 22, 2020 FINDINGS: Lungs: There is worsening airspace disease of both lower lobes suspicious for worsening pneumonia. Cardiac silhouette: Moderate cardiomegaly and mild pulmonary vascular congestion remain. Pulmonary vasculature: Pulmonary vascular congestion persists. Pleural spaces: There are small bilateral pleural effusions that are stable. Upper abdomen: No abnormality seen. Osseous structures: No acute osseous abnormality. Additional findings: There are vascular calcification of the aortic arch. IMPRESSION: 1. Worsening bilateral lower lobe airspace disease suspicious for worsening pneumonia or edema. 2. Persistent moderate cardiomegaly with mild pulmonary vascular congestion and small bilateral pleur al effusions suggest a component of volume overload or CHF
[2020-10-23] MEDS: HumaLOG 300 UNITS/3 ML VIAL SC PRN ×3 (12:04→21:12)
--- NOTE | 2020-10-23 12:18 | PRG ---
DATE OF SERVICE: SUBJECTIVE: A 80-year-old female. OBJECTIVE: VITAL SIGNS: Temperature 97, pulse 70, respiratory rate 20, sats 90% on a Venti mask. She apparently desaturated last night. Prior to that, she was on nasal O2. Blood pressure 160/77. GENERAL: She is awake and responsive. CHEST: No wheezing, no crackles. CARDIAC: Normal S1, S2. No gallops. ABDOMEN: No masses. IMAGING DATA: X-ray still shows bilateral infiltrates. White count is 17,000. ASSESSMENT: Lucas positive pneumonia, respiratory failure, advanced age. PLAN: Continue antibiotics, supportive care, PT, steroids. May switch over to oral medication on Tuesday. Job ID: [id number]
[2020-10-23] MEDS: Senokot S 8.6-50 MG TAB PO PRN (14:11)
--- NOTE | 2020-10-23 15:17 | PDOC.HOSPP ---
- Subjective Encounter Date: 10/23/20 Encounter Time: 07:00 Subjective: Patient seen in follow-up for hypoxic respiratory failure. Currently on Ventimask, denies shortness of breath. - Objective Vital Signs & Weight: Vital Signs (12 hours) Temp Pulse Resp BP Pulse Ox 10/23/20 14:00 97.5 F L 86 25 H 138/74 94 L 10/23/20 12:09 67 138/65 96 10/23/20 11:12 97.5 F L 78 22 H 162/77 H 98 10/23/20 10:00 97.5 F L 85 24 H 162/77 H 93 L 10/23/20 08:31 92 L 10/23/20 08:20 97.6 F 79 26 H 178/83 H 95 10/23/20 06:00 84 20 150/73 H 94 L 10/23/20 04:32 98.5 F 71 24 H 148/66 H 95 Weight Admit Weight 134 lb Weight 134 lb I&O: 10/22/20 10/23/20 10/24/20 06:59 06:59 06:59 Intake Total 1357 1137 960 Output Total 600 475 Balance 1357 537 485 Result Diagrams: 10/23/20 04:50 10/23/20 04:50 Additional Labs: Accuchecks 10/23/20 10/22/20 10/22/20 11:08 20:45 16:44 POC Glucose 191 H 228 H 218 H Labs and MAR reviewed by sd Hospitalist ROS - Review of Systems Cardiovascular: denies: chest pain, palpitations, orthopnea, paroxysmal noc. dyspnea, edema, light headedness Gastrointestinal: denies: nausea, vomiting, abdominal pain, diarrhea, constipation, melena, hematochezia Genitourinary: denies: dysuria, frequency, incontinence, hematuria, retention - Medication Medications: Active Medications Generic Name Dose Route Start Last Admin Trade Name Freq PRN Reason Stop Dose Admin Acetaminophen 650 mg 10/07/20 15:27 10/11/20 07:43 Acetaminophen 325 Mg Tab PO 650 mg Q4H PRN Administration Headache/Fever/Mild Pain (1-3) Albuterol Sulfate 2 puff 10/11/20 13:00 10/23/20 13:26 Albuterol 200 Puff (6.7gm Inhaler) INH 2 puff [id number] MAY Administration Amlodipine Besylate 10 mg 10/20/20 09:00 10/23/20 08:24 Amlodipine 10 Mg Tab PO 10 mg DAILY MAY Administration Ascorbic Acid 1,000 mg 10/08/20 09:00 10/23/20 08:24 Ascorbic Acid 500 Mg Chewable Tablet PO 1,000 mg DAILY MAY Administration Atorvastatin Calcium 10 mg 10/08/20 21:00 10/22/20 21:25 Atorvastatin Calcium 10 Mg Tab PO 10 mg HS MAY Administration Carvedilol 6.25 mg 10/13/20 17:00 10/23/20 08:24 Carvedilol 6.25 Mg Tab PO 6.25 mg BID-WM MAY Administration Cholecalciferol 1,000 units 10/08/20 09:00 10/23/20 08:24 Cholecalciferol 1,000 Units (25 Mcg) Tab PO 1,000 units DAILY MAY Administration Enoxaparin Sodium 60 mg 10/12/20 21:00 10/23/20 08:15 Enoxaparin Sodium 60 Mg/0.6 Ml Syringe SC 60 mg 0900,2100 MAY Administration Cefepime HCl 1 gm/ Sodium 100 mls @ 200 mls/hr 10/16/20 21:00 10/23/20 08:13 Chloride IVPB 100 mls 0900,2099 MAY Administration Insulin Human Lispro 0 units 10/19/20 12:16 10/23/20 12:04 Humalog 300 Units/3 Ml Vial SC 2 unit .MILD SLIDING SCALE PRN Administration Mild Correctional Scale Insulin Human Lispro 0 units 10/22/20 21:17 10/22/20 21:27 Humalog 300 Units/3 Ml Vial SC 2 unit .BEDTIME SLIDING SC PRN Administration Bedtime Correctional Scale Labetalol HCl 10 mg 10/12/20 18:45 10/19/20 03:05 Labetalol Hcl 100 Mg/20 Ml Vial SLOW IVP 10 mg Q4H PRN Administration SBP GREATER THAN 160 Methylprednisolone Sodium Succinate 40 mg 10/17/20 21:00 10/23/20 08:20 Methylprednisolone Sod Succ 40 Mg Vial IVP 40 mg BID MAY Administration Mometasone Furoate/Formoterol Fumar 2 puff 10/13/20 18:30 10/23/20 08:13 Mometasone 200 Mcg/Formoterol 5 Mcg 120 Puff Inhaler INH 2 puff BID-RT MAY Administration Ondansetron HCl 4 mg 10/08/20 08:52 10/09/20 12:14 Ondansetron Odt 4 Mg Tab PO 4 mg Q6H PRN Administration Nausea/Vomiting Pantoprazole Sodium 40 mg 10/13/20 09:00 10/23/20 08:15 Pantoprazole 40 Mg Vial IVP 40 mg DAILY MAY Administration Saccharomyces Boulardii 250 mg 10/11/20 09:00 10/23/20 08:24 Saccharomyces Boulardii 250 Mg Cap PO 250 mg DAILY MAY Administration Senna/Docusate Sodium 2 tab 10/08/20 08:52 10/23/20 14:11 Senokot S 8.6-50 Mg Tab PO 2 tab BIDPRN PRN Administration Constipation Sodium Chloride 10 ml 10/18/20 21:00 10/23/20 08:25 Flush - Normal Saline 10 Ml Syringe IVF 10 ml Q12HR MAY Administration Zinc Sulfate 220 mg 10/08/20 09:00 10/23/20 08:24 Zinc Sulfate 220 Mg Cap PO 220 mg DAILY MAY Administration Zolpidem Tartrate 5 mg 10/08/20 08:52 10/16/20 03:14 Zolpidem Tartrate 5 Mg Tab PO 5 mg HSPRN PRN Administration Insomnia Hospitalist Exam Vitals: Vital Signs (12 hours) Temp Pulse Resp BP Pulse Ox 10/23/20 14:00 97.5 F L 86 25 H 138/74 94 L 10/23/20 12:09 67 138/65 96 10/23/20 11:12 97.5 F L 78 22 H 162/77 H 98 10/23/20 10:00 97.5 F L 85 24 H 162/77 H 93 L 10/23/20 08:31 92 L 10/23/20 08:20 97.6 F 79 26 H 178/83 H 95 10/23/20 06:00 84 20 150/73 H 94 L 10/23/20 04:32 98.5 F 71 24 H 148/66 H 95 Weight Admit Weight 134 lb Weight 134 lb General Appearance: awake alert Eye: anicteric sclera ENT: normocephalic atraumatic Neck: no thyromegaly Heart: RRR Respiratory: CTAB Gastrointestinal: soft Skin: no rashes Psychiatric: normal affect Hosp A/P - Plan Hosp A/P (1) Acute respiratory failure with hypoxia Code(s): J96.01 - ACUTE RESPIRATORY FAILURE WITH HYPOXIA Status: Acute (2) Pneumonia due to COVID-19 virus Code(s): U07.1 - COVID-19; J12.82 - PNEUMONIA DUE TO CORONAVIRUS DISEASE 2018 Status: Acute (3) Hyperlipidemia Code(s): E78.5 - HYPERLIPIDEMIA, UNSPECIFIED Status: Chronic (4) Hypertension Code(s): I10 - ESSENTIAL (PRIMARY) HYPERTENSION Status: Chronic Qualifiers: Hypertension type: essential hypertension Qualified Code(s): I10 - Essential (primary) hypertension - Plan Patient was switched to Ventimask overnight from nasal cannula. Try to wean off of Ventimask. Appreciate PT input. Inpatient rehab screen. Continue heart healthy diet. Did not qualify for remdesivir. Received convalescent plasma. Patient is on Solu-Medrol, vitamin C and zinc.
[2020-10-23] MEDS: Atorvastatin Calcium 10 MG TAB PO SCH (20:51)
[2020-10-24] MEDS: Albuterol 200 PUFF (6.7GM INHALER) INH SCH ×4 (00:38→18:44)
[2020-10-24] MEDS: Mometasone 200 MCG/Formoterol 5 MCG 120 PUFF INHALER INH SCH ×2 (05:30→18:44)
[2020-10-24] MEDS: HumaLOG 300 UNITS/3 ML VIAL SC PRN ×4 (05:33→22:25)
[2020-10-24 06:16] LABS: Band 1 % (5-11); Hemoglobin 13.4 g/dL (12.0-16.0); Lymphocytes 4 % (21-51); MDiff Complete? YES; Mean Corpuscular HGB CONC 32.8 g/dL (32.0-36.0); Mean Corpuscular Hemoglobin 28.7 pg (27.0-31.0); Mean Corpuscular Volume 87.4 fL (78.0-98.0); Mean Platelet Volume 8.1 fL (7.4-10.4); Monocytes 2 % (0-10); Neutrophil 93 % (42-75); Platelet Count 266 thou/uL (130-400); RBC Distribution Width 13.4 % (11.5-14.5); Red Blood Cell (RBC) Count 4.68 mill/uL (4.20-5.40); White Blood Cell (WBC) Count 26.9 thou/uL (4.8-10.8)
[2020-10-24] MEDS: Ascorbic Acid 500 mg Chewable Tablet PO SCH (08:46)
[2020-10-24] MEDS: Carvedilol 6.25 MG TAB PO SCH ×2 (08:46→18:43)
[2020-10-24] MEDS: Amlodipine 10 MG TAB PO SCH (08:46)
[2020-10-24] MEDS: Cefepime 1 GM in Sodium Chloride 0.9% 100 ML IVPB SCH ×2 (08:47→21:11)
[2020-10-24] MEDS: Cholecalciferol 1,000 UNITS (25 MCG) TAB PO SCH (08:48)
[2020-10-24] MEDS: methylPREDNISolone Sod Succ 40 MG VIAL IVP SCH (08:48)
[2020-10-24] MEDS: Pantoprazole 40 MG VIAL IVP SCH (08:48)
[2020-10-24] MEDS: Enoxaparin Sodium 60 MG/0.6 ML SYRINGE SC SCH ×2 (08:48→21:11)
[2020-10-24] MEDS: Saccharomyces boulardii 250 MG CAP PO SCH (08:48)
[2020-10-24] MEDS: Zinc Sulfate 220 MG CAP PO SCH (08:49)
[2020-10-24] MEDS: Senokot S 8.6-50 MG TAB PO PRN ×2 (10:06→18:44)
--- NOTE | 2020-10-24 10:17 | PRG ---
DATE OF SERVICE: 10/24/2020 SUBJECTIVE: A 80-year-old female has a nasal O2 this morning at 5 L, saturations 93. OBJECTIVE: VITAL SIGNS: Temperature 97, pulse 58, blood pressure . CHEST: No wheezing, no crackles. CARDIAC: Normal S1. ABDOMEN: No masses. LABORATORY DATA: White count 26,000. IMPRESSION: Respiratory failure, cerrato positive pneumonia slowly improving, leukocytosis. Continue Maxipime. Continue supportive care. Steroids. Consider switching over to oral medicine. Day 17 in the hospital. Job ID: [id number]
--- NOTE | 2020-10-24 14:15 | PDOC.HOSPP ---
- Subjective Encounter Date: 10/24/20 Encounter Time: 07:00 Subjective: Patient seen in follow-up for hypoxic respiratory failure. She is now on oxygen by nasal cannula. Reports feeling better. - Objective Vital Signs & Weight: Vital Signs (12 hours) Temp Pulse Resp BP Pulse Ox 10/24/20 11:40 98.1 F 74 20 145/64 H 96 10/24/20 08:46 81 10/24/20 08:30 98.3 F 94 22 H 146/74 H 94 L 10/24/20 08:00 94 L 10/24/20 07:35 93 L 10/24/20 06:00 81 14 137/69 90 L 10/24/20 03:56 97.5 F L 58 L 14 139/66 96 Weight Admit Weight 134 lb Weight 134 lb I&O: 10/23/20 10/24/20 10/25/20 06:59 06:59 06:59 Intake Total 1137 1540 Output Total 600 800 Balance 537 740 Result Diagrams: 10/24/20 05:00 10/23/20 04:50 Additional Labs: Accuchecks 10/24/20 10/24/20 10/23/20 11:24 05:22 20:59 POC Glucose 166 H 186 H 246 H 10/23/20 16:14 POC Glucose 230 H I reviewed patient's labs and MAR Hospitalist ROS - Review of Systems Gastrointestinal: denies: nausea, vomiting, abdominal pain, diarrhea, constipa tion, melena, hematochezia Genitourinary: denies: dysuria, frequency, incontinence, hematuria, retention - Medication Medications: Active Medications Generic Name Dose Route Start Last Admin Trade Name Sindi PRN Reason Stop Dose Admin Acetaminophen 650 mg 10/07/20 15:27 10/11/20 07:43 Acetaminophen 325 Mg Tab PO 650 mg Q4H PRN Administration Headache/Fever/Mild Pain (1-3) Albuterol Sulfate 2 puff 10/11/20 13:00 10/24/20 13:05 Albuterol 200 Puff (6.7gm Inhaler) INH 2 puff [id number] MAY Administration Amlodipine Besylate 10 mg 10/20/20 09:00 10/24/20 08:46 Amlodipine 10 Mg Tab PO 10 mg DAILY MAY Administration Ascorbic Acid 1,000 mg 10/08/20 09:00 10/24/20 08:46 Ascorbic Acid 500 Mg Chewable Tablet PO 1,000 mg DAILY MAY Administration Atorvastatin Calcium 10 mg 10/08/20 21:00 10/23/20 20:51 Atorvastatin Calcium 10 Mg Tab PO 10 mg HS MAY Administration Carvedilol 6.25 mg 10/13/20 17:00 10/24/20 08:46 Carvedilol 6.25 Mg Tab PO 6.25 mg BID-WM MAY Administration Cholecalciferol 1,000 units 10/08/20 09:00 10/24/20 08:48 Cholecalciferol 1,000 Units (25 Mcg) Tab PO 1,000 units DAILY MAY Administration Enoxaparin Sodium 60 mg 10/12/20 21:00 10/24/20 08:48 Enoxaparin Sodium 60 Mg/0.6 Ml Syringe SC 60 mg 0900,2099 MAY Administration Cefepime HCl 1 gm/ Sodium 100 mls @ 200 mls/hr 10/16/20 21:00 10/24/20 08:47 Chloride IVPB 100 mls 09,2099 MAY Administration Insulin Human Lispro 0 units 10/19/20 12:16 10/24/20 13:06 Humalog 300 Units/3 Ml Vial SC 2 unit .MILD SLIDING SCALE PRN Administration Mild Correctional Scale Insulin Human Lispro 0 units 10/22/20 21:17 10/22/20 21:27 Humalog 300 Units/3 Ml Vial SC 2 unit .BEDTIME SLIDING SC PRN Administration Bedtime Correctional Scale Labetalol HCl 10 mg 10/12/20 18:45 10/19/20 03:05 Labetalol Hcl 100 Mg/20 Ml Vial SLOW IVP 10 mg Q4H PRN Administration SBP GREATER THAN 160 Mometasone Furoate/Formoterol Fumar 2 puff 10/13/20 18:30 10/24/20 05:30 Mometasone 200 Mcg/Formoterol 5 Mcg 120 Puff Inhaler INH 2 puff BID-RT MAY Administration Ondansetron HCl 4 mg 10/08/20 08:52 10/09/20 12:14 Ondansetron Odt 4 Mg Tab PO 4 mg Q6H PRN Administration Nausea/Vomiting Pantoprazole Sodium 40 mg 10/13/20 09:00 10/24/20 08:48 Pantoprazole 40 Mg Vial IVP 40 mg DAILY MAY Administration Saccharomyces Boulardii 250 mg 10/11/20 09:00 10/24/20 08:48 Saccharomyces Boulardii 250 Mg Cap PO 250 mg DAILY MAY Administration Senna/Docusate Sodium 2 tab 10/08/20 08:52 10/24/20 10:06 Senokot S 8.6-50 Mg Tab PO 2 tab BIDPRN PRN Administration Constipation Sodium Chloride 10 ml 10/18/20 21:00 10/24/20 08:49 Flush - Normal Saline 10 Ml Syringe IVF 10 ml Q12HR MAY Administration Zinc Sulfate 220 mg 10/08/20 09:00 10/24/20 08:49 Zinc Sulfate 220 Mg Cap PO 220 mg DAILY MAY Administration Zolpidem Tartrate 5 mg 10/08/20 08:52 10/16/20 03:14 Zolpidem Tartrate 5 Mg Tab PO 5 mg HSPRN PRN Administration Insomnia Hospitalist Exam Vitals: Vital Signs (12 hours) Temp Pulse Resp BP Pulse Ox 10/24/20 11:40 98.1 F 74 20 145/64 H 96 10/24/20 08:46 81 10/24/20 08:30 98.3 F 94 22 H 146/74 H 94 L 10/24/20 08:00 94 L 10/24/20 07:35 93 L 10/24/20 06:00 81 14 137/69 90 L 10/24/20 03:56 97.5 F L 58 L 14 139/66 96 Weight Admit Weight 134 lb Weight 134 lb General Appearance: awake alert Eye: anicteric sclera ENT: normocephalic atraumatic Neck: supple Heart: RRR Respiratory: CTAB Gastrointestinal: soft, non-tender Skin: no rashes Psychiatric: normal affect, normal behavior Hosp A/P - Plan Hosp A/P (1) Acute respiratory failure with hypoxia Code(s): J96.01 - ACUTE RESPIRATORY FAILURE WITH HYPOXIA Status: Acute (2) Pneumonia due to COVID-19 virus Code(s): U07.1 - COVID-19; J12.82 - PNEUMONIA DUE TO CORONAVIRUS DISEASE 2019 Status: Acute (3) Hyperlipidemia Code(s): E78.5 - HYPERLIPIDEMIA, UNSPECIFIED Status: Chronic (4) Hypertension Code(s): I10 - ESSENTIAL (PRIMARY) HYPERTENSION Status: Chronic Qualifiers: Hypertension type: essential hypertension Qualified Code(s): I10 - Essential (primary) hypertension - Plan Patient is now back on nasal cannula. Try to wean oxygen off. Continue heart healthy diet. Did not qualify for remdesivir. Received convalescent plasma. Patient is on Solu-Medrol, vitamin C and zinc. Patient may need inpatient rehab.
[2020-10-24] MEDS: predniSONE 20 MG TAB PO SCH (18:43)
[2020-10-24] MEDS: Atorvastatin Calcium 10 MG TAB PO SCH (21:12)
[2020-10-25 03:43] LABS: Lactic Acid 0.9 mmol/L (0.5-2.2)
[2020-10-25 03:49] LABS: Anion Gap 10 mmol/L (10-20); BUN (Urea Nitrogen) 21 mg/dL (9.8-20.1); CRP (Inflammatory) Less than 0.50 mg/dL (= or < 0.5); Calc. Creatinine Clearance 107 mL/min (70-130); Calcium 8.5 mg/dL (7.8-10.44); Carbon Dioxide 26 mmol/L (23-31); Chloride 100 mmol/L (98-107); Glucose 169 mg/dL (83-110); Potassium 4.5 mmol/L (3.5-5.1); Sodium 131 mmol/L (136-145)
[2020-10-25 04:05] LABS: Band 2 % (5-11); Hemoglobin 13.3 g/dL (12.0-16.0); Lymphocytes 2 % (21-51); MDiff Complete? YES; Mean Corpuscular HGB CONC 33.5 g/dL (32.0-36.0); Mean Corpuscular Hemoglobin 29.3 pg (27.0-31.0); Mean Corpuscular Volume 87.5 fL (78.0-98.0); Mean Platelet Volume 7.5 fL (7.4-10.4); Monocytes 2 % (0-10); Neutrophil 94 % (42-75); Platelet Count 274 thou/uL (130-400); RBC Distribution Width 13.3 % (11.5-14.5); Red Blood Cell (RBC) Count 4.53 mill/uL (4.20-5.40); White Blood Cell (WBC) Count 23.8 thou/uL (4.8-10.8)
[2020-10-25] MEDS: Albuterol 200 PUFF (6.7GM INHALER) INH SCH ×4 (05:02→17:02)
[2020-10-25] MEDS: Furosemide 40 MG/4 ML VIAL SLOW IVP SCH ×2 (05:20→08:34)
[2020-10-25] MEDS: Mometasone 200 MCG/Formoterol 5 MCG 120 PUFF INHALER INH SCH ×2 (05:21→17:01)
[2020-10-25] MEDS: HumaLOG 300 UNITS/3 ML VIAL SC PRN ×4 (05:22→21:04)
[2020-10-25] MEDS: Carvedilol 6.25 MG TAB PO SCH ×2 (08:34→17:01)
[2020-10-25] MEDS: predniSONE 20 MG TAB PO SCH ×2 (08:35→17:01)
[2020-10-25] MEDS: Cholecalciferol 1,000 UNITS (25 MCG) TAB PO SCH (08:35)
[2020-10-25] MEDS: Ascorbic Acid 500 mg Chewable Tablet PO SCH (08:35)
[2020-10-25] MEDS: Enoxaparin Sodium 60 MG/0.6 ML SYRINGE SC SCH ×2 (08:35→20:21)
[2020-10-25] MEDS: Amlodipine 10 MG TAB PO SCH (08:35)
[2020-10-25] MEDS: Cefepime 1 GM in Sodium Chloride 0.9% 100 ML IVPB SCH ×2 (08:35→20:20)
[2020-10-25] MEDS: Zinc Sulfate 220 MG CAP PO SCH (08:36)
[2020-10-25] MEDS: Saccharomyces boulardii 250 MG CAP PO SCH (08:36)
[2020-10-25] MEDS: Pantoprazole 40 MG VIAL IVP SCH (08:36)
--- NOTE | 2020-10-25 11:22 | RAD ---
RADIOGRAPH CHEST 1 VIEW: DATE: 10/25/2020 TIME: 2:48 AM HISTORY: 80-year-old female with hypoxemia and tachypnea COMPARISON: 10/23/2020 FINDINGS: Bilateral interstitial and alveolar groundglass infiltrates heterogeneously distributed. No pneumothorax. No interval change. IMPRESSION: No interval change in bilateral COVID 19 pneumonia
--- NOTE | 2020-10-25 15:08 | PDOC.HOSPP ---
- Subjective Encounter Date: 10/25/20 Encounter Time: 08:00 Subjective: Patient seen in follow-up regarding acute hypoxic respiratory failure. She is on high flow oxygen today. - Objective Vital Signs & Weight: Vital Signs (12 hours) Temp Pulse Resp BP Pulse Ox 10/25/20 14:00 84 22 H 116/58 L 94 L 10/25/20 11:57 94 L 10/25/20 11:55 97.8 F 77 28 H 112/57 L 97 10/25/20 10:00 97.8 F 92 26 H 133/71 92 L 10/25/20 09:30 110 H 30 H 163/79 H 85 L 10/25/20 08:35 90 10/25/20 08:00 97.7 F 90 24 H 155/78 H 92 L 10/25/20 06:00 81 16 125/60 94 L 10/25/20 04:00 97.1 F L 56 L 18 166/75 H 100 Weight Admit Weight 134 lb Weight 134 lb I&O: 10/24/20 10/25/20 10/26/20 06:59 06:59 06:59 Intake Total 1540 540 120 Output Total 800 1000 975 Balance 608 -691 -200 Result Diagrams: 10/25/20 03:14 10/25/20 03:14 Additional Labs: Accuchecks 10/25/20 10/25/20 10/24/20 11:44 05:11 22:17 POC Glucose 208 H 161 H 207 H 10/24/20 10/24/20 19:51 16:51 POC Glucose 247 H 158 H I reviewed patient's labs and MAR EKG Reviewed by me: Yes (Normal sinus rhythm on telemetry) Hospitalist ROS - Review of Systems Respiratory: reports: cough, dry, SOB with excertion Cardiovascular: denies: chest pain, palpitations, orthopnea, edema, light headedness Genitourinary: denies: dysuria, frequency, incontinence, hematuria, retention - Medication Medications: Active Medications Generic Name Dose Route Start Last Admin Trade Name Freq PRN Reason Stop Dose Admin Acetaminophen 650 mg 10/07/20 15:27 10/11/20 07:43 Acetaminophen 325 Mg Tab PO 650 mg Q4H PRN Administration Headache/Fever/Mild Pain (1-3) Albuterol Sulfate 2 puff 10/11/20 13:00 10/25/20 12:03 Albuterol 200 Puff (6.7gm Inhaler) INH 2 puff [id number] MAY Administration Amlodipine Besylate 10 mg 10/20/20 09:00 10/25/20 08:35 Amlodipine 10 Mg Tab PO 10 mg DAILY MAY Administration Ascorbic Acid 1,000 mg 10/08/20 09:00 10/25/20 08:35 Ascorbic Acid 500 Mg Chewable Tablet PO 1,000 mg DAILY MAY Administration Atorvastatin Calcium 10 mg 10/08/20 21:00 10/24/20 21:12 Atorvastatin Calcium 10 Mg Tab PO 10 mg HS MAY Administration Carvedilol 6.25 mg 10/13/20 17:00 10/25/20 08:34 Carvedilol 6.25 Mg Tab PO 6.25 mg BID-WM MAY Administration Cholecalciferol 1,000 units 10/08/20 09:00 10/25/20 08:35 Cholecalciferol 1,000 Units (25 Mcg) Tab PO 1,000 units DAILY MAY Administration Enoxaparin Sodium 60 mg 10/12/20 21:00 10/25/20 08:35 Enoxaparin Sodium 60 Mg/0.6 Ml Syringe SC 60 mg 0900,2100 MAY Administration Cefepime HCl 1 gm/ Sodium 100 mls @ 200 mls/hr 10/16/20 21:00 10/25/20 08:35 Chloride IVPB 100 mls 0900,2100 MAY Administration Insulin Human Lispro 0 units 10/19/20 12:16 10/25/20 12:04 Humalog 300 Units/3 Ml Vial SC 3 unit .MILD SLIDING SCALE PRN Administration Mild Correctional Scale Insulin Human Lispro 0 units 10/22/20 21:17 10/22/20 21:27 Humalog 300 Units/3 Ml Vial SC 2 unit .BEDTIME SLIDING SC PRN Administration Bedtime Correctional Scale Labetalol HCl 10 mg 10/12/20 18:45 10/19/20 03:05 Labetalol Hcl 100 Mg/20 Ml Vial SLOW IVP 10 mg Q4H PRN Administration SBP GREATER THAN 160 Mometasone Furoate/Formoterol Fumar 2 puff 10/13/20 18:30 10/25/20 05:21 Mometasone 200 Mcg/Formoterol 5 Mcg 120 Puff Inhaler INH 2 puff BID-RT MAY Administration Ondansetron HCl 4 mg 10/08/20 08:52 10/09/20 12:14 Ondansetron Odt 4 Mg Tab PO 4 mg Q6H PRN Administration Nausea/Vomiting Pantoprazole Sodium 40 mg 10/13/20 09:00 10/25/20 08:36 Pantoprazole 40 Mg Vial IVP 40 mg DAILY MAY Administration Prednisone 20 mg 10/24/20 17:00 10/25/20 08:35 Prednisone 20 Mg Tab PO 20 mg BID-WM MAY Administration Saccharomyces Boulardii 250 mg 10/11/20 09:00 10/25/20 08:36 Saccharomyces Boulardii 250 Mg Cap PO 250 mg DAILY MAY Administration Senna/Docusate Sodium 2 tab 10/08/20 08:52 10/24/20 10:06 Senokot S 8.6-50 Mg Tab PO 2 tab BIDPRN PRN Administration Constipation Sodium Chloride 10 ml 10/18/20 21:00 10/25/20 08:36 Flush - Normal Saline 10 Ml Syringe IVF 10 ml Q12HR MAY Administration Zinc Sulfate 220 mg 10/08/20 09:00 10/25/20 08:36 Zinc Sulfate 220 Mg Cap PO 220 mg DAILY MAY Administration Zolpidem Tartrate 5 mg 10/08/20 08:52 10/16/20 03:14 Zolpidem Tartrate 5 Mg Tab PO 5 mg HSPRN PRN Administration Insomnia Hospitalist Exam Vitals: Vital Signs (12 hours) Temp Pulse Resp BP Pulse Ox 10/25/20 14:00 84 22 H 116/58 L 94 L 10/25/20 11:57 94 L 10/25/20 11:55 97.8 F 77 28 H 112/57 L 97 10/25/20 10:00 97.8 F 92 26 H 133/71 92 L 10/25/20 09:30 110 H 30 H 163/79 H 85 L 10/25/20 08:35 90 10/25/20 08:00 97.7 F 90 24 H 155/78 H 92 L 10/25/20 06:00 81 16 125/60 94 L 10/25/20 04:00 97.1 F L 56 L 18 166/75 H 100 Weight Admit Weight 134 lb Weight 134 lb General Appearance: awake alert Eye: anicteric sclera ENT: normocephalic atraumatic, moist mucosa Neck: supple Heart: RRR Respiratory: rhonchi Gastrointestinal: soft, non-tender Skin: no rashes Psychiatric: normal affect, normal behavior Hosp A/P - Plan 10/25/2020: Patient is a pleasant 80-year-old lady who was admitted to the hospital on October 07, 2020 for acute hypoxic respiratory failure secondary to COVID-[address] angiogram of the chest was negative for pulmonary embolism she was started on apixaban to prevent thromboembolism patient did not qualify for remdesivir therapy. She received convalescent plasma. Patient was transitioned to high flow oxygen because of worsening oxygen requirements. She had to be transferred to [facility] and started on BiPAP subsequently. She was not tolerating BiPAP and wished to be DNR. She was seen by pulmonology service. She has had a fluctuating hospital course, and over the last 3 days she had been on high flow oxygen at various times as well as oxygen by nasal cannula. Currently, she is on high flow oxygen. Chest x-ray does not show any significant change compared to prior chest x-rays. Hosp A/P (1) Acute respiratory failure with hypoxia Code(s): J96.01 - ACUTE RESPIRATORY FAILURE WITH HYPOXIA Status: Acute (2) Pneumonia due to COVID-19 virus Code(s): U07.1 - COVID-19; J12.82 - PNEUMONIA DUE TO CORONAVIRUS DISEASE 2019 Status: Acute (3) Hyperlipidemia Code(s): E78.5 - HYPERLIPIDEMIA, UNSPECIFIED Status: Chronic (4) Hypertension Code(s): I10 - ESSENTIAL (PRIMARY) HYPERTENSION Status: Chronic Qualifiers: Hypertension type: essential hypertension Qualified Code(s): I10 - Essential (primary) hypertension - Plan Patient is now back on high flow oxygen. Try to wean oxygen off. No significant changes on chest x-ray today. Covid pneumonia stable. Continue heart healthy diet. Did not qualify for remdesivir. Received convalescent plasma. Continue Solu-Medrol, vitamin C and zinc. Continue cefepime. Disposition: Patient may need inpatient rehab.
[2020-10-25] MEDS: Acetaminophen 325 MG TAB PO PRN (18:18)
[2020-10-25] MEDS: Atorvastatin Calcium 10 MG TAB PO SCH (20:21)
[2020-10-26 06:06] LABS: #Lymphocytes 1.1 thou/uL (1.20-3.40); #Monocytes 0.6 thou/uL (0.11-0.59); #Neutrophils 17.8 thou/uL (1.40-6.50); %Basophils 0.1 % (0.0-1.0); %Eosinophils 0.1 % (0.0-10.0); %Lymphocytes 5.8 % (21.0-51.0); %Monocytes 3.3 % (0.0-10.0); %Neutrophils 90.8 % (42.0-75.0); Hemoglobin 11.8 g/dL (12.0-16.0); Mean Corpuscular HGB CONC 33.2 g/dL (32.0-36.0); Mean Corpuscular Hemoglobin 28.9 pg (27.0-31.0); Mean Corpuscular Volume 87.2 fL (78.0-98.0); Mean Platelet Volume 7.5 fL (7.4-10.4); Platelet Count 229 thou/uL (130-400); RBC Distribution Width 13.3 % (11.5-14.5); White Blood Cell (WBC) Count 19.6 thou/uL (4.8-10.8)
[2020-10-26] MEDS: Albuterol 200 PUFF (6.7GM INHALER) INH SCH ×6 (06:22→21:03)
[2020-10-26] MEDS: HumaLOG 300 UNITS/3 ML VIAL SC PRN ×4 (06:24→21:27)
[2020-10-26] MEDS: Mometasone 200 MCG/Formoterol 5 MCG 120 PUFF INHALER INH SCH ×2 (08:34→18:28)
[2020-10-26] MEDS: Cefepime 1 GM in Sodium Chloride 0.9% 100 ML IVPB SCH ×2 (08:35→20:57)
[2020-10-26] MEDS: Saccharomyces boulardii 250 MG CAP PO SCH (08:35)
[2020-10-26] MEDS: Amlodipine 10 MG TAB PO SCH (08:35)
[2020-10-26] MEDS: Zinc Sulfate 220 MG CAP PO SCH (08:35)
[2020-10-26] MEDS: Cholecalciferol 1,000 UNITS (25 MCG) TAB PO SCH (08:35)
[2020-10-26] MEDS: Carvedilol 6.25 MG TAB PO SCH ×2 (08:35→18:28)
[2020-10-26] MEDS: predniSONE 20 MG TAB PO SCH ×2 (08:35→18:28)
[2020-10-26] MEDS: Ascorbic Acid 500 mg Chewable Tablet PO SCH (08:35)
[2020-10-26] MEDS: Pantoprazole 40 MG VIAL IVP SCH (08:36)
[2020-10-26] MEDS: Enoxaparin Sodium 60 MG/0.6 ML SYRINGE SC SCH ×2 (08:36→20:57)
--- NOTE | 2020-10-26 11:15 | PDOC.HOSPP ---
- Subjective Encounter Date: 10/26/20 Subjective: The patient is on 63% FiO2 today. She denies any new complaints. - Objective Vital Signs & Weight: Vital Signs (12 hours) Temp Pulse Resp BP Pulse Ox 10/26/20 10:03 98.0 F 91 24 H 140/67 96 10/26/20 08:55 97.8 F 83 26 H 128/65 97 10/26/20 06:00 94 24 H 134/66 93 L 10/26/20 04:00 98 10/26/20 03:24 97.6 F 77 18 108/60 89 L 10/26/20 02:32 92 L 10/26/20 02:00 64 28 H 111/59 L 89 L 10/25/20 23:26 97.4 F L 68 18 115/64 99 Weight Admit Weight 134 lb Weight 134 lb I&O: 10/25/20 10/26/20 10/27/20 06:59 06:59 06:59 Intake Total 540 340 Output Total 1000 975 Balance -460 -525 Result Diagrams: 10/26/20 05:49 10/25/20 03:14 Additional Labs: Accuchecks 10/26/20 10/25/20 10/25/20 05:27 20:55 11:44 POC Glucose 155 H 215 H 208 H Hospitalist ROS - Medication Medications: Active Medications Generic Name Dose Route Start Last Admin Trade Name Freq PRN Reason Stop Dose Admin Acetaminophen 650 mg 10/07/20 15:27 10/25/20 18:18 Acetaminophen 325 Mg Tab PO 650 mg Q4H PRN Administration Headache/Fever/Mild Pain (1-3) Albuterol Sulfate 2 puff 10/11/20 13:00 10/26/20 08:37 Albuterol 200 Puff (6.7gm Inhaler) INH Not Given [id number] MAY Amlodipine Besylate 10 mg 10/20/20 09:00 10/26/20 08:35 Amlodipine 10 Mg Tab PO 10 mg DAILY MAY Administration Ascorbic Acid 1,000 mg 10/08/20 09:00 10/26/20 08:35 Ascorbic Acid 500 Mg Chewable Tablet PO 1,000 mg DAILY MAY Administration Atorvastatin Calcium 10 mg 10/08/20 21:00 10/25/20 20:21 Atorvastatin Calcium 10 Mg Tab PO 10 mg HS MAY Administration Carvedilol 6.25 mg 10/13/20 17:00 10/26/20 08:35 Carvedilol 6.25 Mg Tab PO 6.25 mg BID-WM MAY Administration Cholecalciferol 1,000 units 10/08/20 09:00 10/26/20 08:35 Cholecalciferol 1,000 Units (25 Mcg) Tab PO 1,000 units DAILY MAY Administration Enoxaparin Sodium 60 mg 10/12/20 21:00 10/26/20 08:36 Enoxaparin Sodium 60 Mg/0.6 Ml Syringe SC 60 mg MAY Administration Cefepime HCl 1 gm/ Sodium 100 mls @ 200 mls/hr 10/16/20 21:00 10/26/20 08:35 Chloride IVPB 100 mls MAY Administration Insulin Human Lispro 0 units 10/19/20 12:16 10/26/20 06:24 Humalog 300 Units/3 Ml Vial SC 2 unit .MILD SLIDING SCALE PRN Administration Mild Correctional Scale Insulin Human Lispro 0 units 10/22/20 21:17 10/25/20 21:04 Humalog 300 Units/3 Ml Vial SC 2 unit .BEDTIME SLIDING SC PRN Administration Bedtime Correctional Scale Labetalol HCl 10 mg 10/12/20 18:45 10/19/20 03:05 Labetalol Hcl 100 Mg/20 Ml Vial SLOW IVP 10 mg Q4H PRN Administration SBP GREATER THAN 160 Mometasone Furoate/Formoterol Fumar 2 puff 10/13/20 18:30 10/26/20 08:34 Mometasone 200 Mcg/Formoterol 5 Mcg 120 Puff Inhaler INH 2 puff BID-RT MAY Administration Ondansetron HCl 4 mg 10/08/20 08:52 10/09/20 12:14 Ondansetron Odt 4 Mg Tab PO 4 mg Q6H PRN Administration Nausea/Vomiting Pantoprazole Sodium 40 mg 10/13/20 09:00 10/26/20 08:36 Pantoprazole 40 Mg Vial IVP 40 mg DAILY MAY Administration Prednisone 20 mg 10/24/20 17:00 10/26/20 08:35 Prednisone 20 Mg Tab PO 20 mg BID-WM MAY Administration Saccharomyces Boulardii 250 mg 10/11/20 09:00 10/26/20 08:35 Saccharomyces Boulardii 250 Mg Cap PO 250 mg DAILY MAY Administration Senna/Docusate Sodium 2 tab 10/08/20 08:52 10/24/20 10:06 Senokot S 8.6-50 Mg Tab PO 2 tab BIDPRN PRN Administration Constipation Sodium Chloride 10 ml 10/18/20 21:00 10/26/20 08:37 Flush - Normal Saline 10 Ml Syringe IVF 10 ml Q12HR MAY Administration Zinc Sulfate 220 mg 10/08/20 09:00 10/26/20 08:35 Zinc Sulfate 220 Mg Cap PO 220 mg DAILY MAY Administration Zolpidem Tartrate 5 mg 10/08/20 08:52 10/16/20 03:14 Zolpidem Tartrate 5 Mg Tab PO 5 mg HSPRN PRN Administration Insomnia Hospitalist Exam Vitals: Vital Signs (12 hours) Temp Pulse Resp BP Pulse Ox 10/26/20 10:03 98.0 F 91 24 H 140/67 96 10/26/20 08:55 97.8 F 83 26 H 128/65 97 10/26/20 06:00 94 24 H 134/66 93 L 10/26/20 04:00 98 10/26/20 03:24 97.6 F 77 18 108/60 89 L 10/26/20 02:32 92 L 10/26/20 02:00 64 28 H 111/59 L 89 L 10/25/20 23:26 97.4 F L 68 18 115/64 99 Weight Admit Weight 134 lb Weight 134 lb General Appearance: awake alert ENT: normocephalic atraumatic Neck: supple Respiratory: normal chest expansion, no tachypnea Extremities: no cyanosis, no clubbing Hosp A/P - Plan Hosp A/P (1) Acute respiratory failure with hypoxia Code(s): J96.01 - ACUTE RESPIRATORY FAILURE WITH HYPOXIA Status: Acute (2) Pneumonia due to COVID-19 virus Code(s): U07.1 - COVID-19; J12.82 - PNEUMONIA DUE TO CORONAVIRUS DISEASE 2019 Status: Acute (3) Hyperlipidemia Code(s): E78.5 - HYPERLIPIDEMIA, UNSPECIFIED Status: Chronic (4) Hypertension Code(s): I10 - ESSENTIAL (PRIMARY) HYPERTENSION Status: Chronic Qualifiers: Hypertension type: essential hypertension Qualified Code(s): I10 - Essential (primary) hypertension 10/25/2020: Patient is a pleasant 80-year-old lady who was admitted to the hospital on October 07, 2020 for acute hypoxic respiratory failure secondary to COVID-[address] angiogram of the chest was negative for pulmonary embolism she was started on apixaban to prevent thromboembolism patient did not qualify for remdesivir therapy. She received convalescent plasma. Patient was transitioned to high flow oxygen because of worsening oxygen requirements. She had to be transferred to [facility] and started on BiPAP subsequently. She was not tolerating BiPAP and wished to be DNR. She was seen by pulmonology service. She has had a fluctuating hospital course, and over the last 3 days she had been on high flow oxygen at various times as well as oxygen by nasal cannula. Currently, she is on high flow oxygen. Chest x-ray does not show any significant change compared to prior chest x-rays. 10/26: The patient was seen and examined. She is saturating well on 63% FiO2 on high flow nasal cannula. Continue anticoagulation and corticosteroids.
[2020-10-26] MEDS: Acetaminophen 325 MG TAB PO PRN (20:54)
[2020-10-26] MEDS: Atorvastatin Calcium 10 MG TAB PO SCH (20:57)
[2020-10-27] MEDS: Albuterol 200 PUFF (6.7GM INHALER) INH SCH ×5 (03:00→15:40)
[2020-10-27 05:07] LABS: Anion Gap 7 mmol/L (10-20); BUN (Urea Nitrogen) 31 mg/dL (9.8-20.1); Calc. Creatinine Clearance 71 mL/min (70-130); Calcium 8.7 mg/dL (7.8-10.44); Carbon Dioxide 35 mmol/L (23-31); Chloride 96 mmol/L (98-107); Glucose 203 mg/dL (83-110); Potassium 4.8 mmol/L (3.5-5.1); Sodium 133 mmol/L (136-145)
[2020-10-27] MEDS: HumaLOG 300 UNITS/3 ML VIAL SC PRN ×2 (05:09→11:58)
[2020-10-27] MEDS: Mometasone 200 MCG/Formoterol 5 MCG 120 PUFF INHALER INH SCH (05:37)
[2020-10-27 07:14] LABS: Hemoglobin 10.3 g/dL (12.0-16.0); Mean Corpuscular Hemoglobin 30.3 pg (27.0-31.0); Mean Platelet Volume 7.6 fL (7.4-10.4); Platelet Count 229 thou/uL (130-400); RBC Distribution Width 13.3 % (11.5-14.5); Red Blood Cell (RBC) Count 3.41 mill/uL (4.20-5.40); White Blood Cell (WBC) Count 21.3 thou/uL (4.8-10.8)
[2020-10-27] MEDS: Carvedilol 6.25 MG TAB PO SCH ×2 (07:39→09:05)
[2020-10-27] MEDS: Zinc Sulfate 220 MG CAP PO SCH ×2 (07:39→09:05)
[2020-10-27] MEDS: Amlodipine 10 MG TAB PO SCH ×2 (07:39→09:05)
[2020-10-27] MEDS: Saccharomyces boulardii 250 MG CAP PO SCH ×2 (07:39→09:05)
[2020-10-27] MEDS: Cefepime 1 GM in Sodium Chloride 0.9% 100 ML IVPB SCH (07:40)
[2020-10-27] MEDS: Ascorbic Acid 500 mg Chewable Tablet PO SCH ×2 (07:40→09:05)
[2020-10-27] MEDS: Cholecalciferol 1,000 UNITS (25 MCG) TAB PO SCH ×2 (07:40→09:06)
[2020-10-27] MEDS: predniSONE 20 MG TAB PO SCH ×2 (07:40→09:05)
[2020-10-27] MEDS: Enoxaparin Sodium 60 MG/0.6 ML SYRINGE SC SCH (07:41)
[2020-10-27] MEDS: Pantoprazole 40 MG VIAL IVP SCH (07:41)
[2020-10-27] MEDS: Acetaminophen 325 MG TAB PO PRN (08:58)
[2020-10-27 09:00] LABS: Band 2 % (5-11); Hypersemented Neutrophil SLIGHT; Lymphocytes 8 % (21-51); MDiff Complete? YES; Monocytes 5 % (0-10); Neutrophil 85 % (42-75); Platelet Morphology Comment Appears Adequate; Polychromasia SLIGHT = 2-3 cells (100X) (0-2/hpf)
--- NOTE | 2020-10-27 09:52 | PRG ---
DATE OF SERVICE: 10/27/2020 SUBJECTIVE: This morning, the patient is lethargic and less responsive. Family is requesting hospice. OBJECTIVE: VITAL SIGNS: Temperature 98.3, pulse 106, respiratory rate 24, saturations 95% on 60 flow rate and 48%, blood pressure . CHEST: No wheezing or crackles. CARDIAC: Normal S1 and S2. IMPRESSION: Respiratory failure, cerrato positive, severe deconditioning, advanced age. PLAN: DNR will be confirmed. Palliative Care to try and get hospice involvement. Job ID: [id number]
[2020-10-27] MEDS: Senokot S 8.6-50 MG TAB PO PRN (13:00)
--- NOTE | 2020-10-27 14:58 | PDOC.HOSPP ---
- Subjective Encounter Date: 10/27/20 Subjective: The patient stated that she feels exhausted and would like to consider hospice. - Objective Vital Signs & Weight: Vital Signs (12 hours) Temp Pulse Resp BP Pulse Ox 10/27/20 11:40 97.6 F 103 H 36 H 103/56 L 88 L 10/27/20 09:40 97.6 F 113 H 28 H 126/74 95 10/27/20 09:05 106 H 10/27/20 07:50 97.6 F 106 H 24 H 117/74 95 10/27/20 06:47 91 L 10/27/20 06:00 86 22 H 140/75 92 L 10/27/20 04:00 97.6 F 82 16 101/50 L 92 L Weight Admit Weight 134 lb Weight 134 lb I&O: 10/26/20 10/27/20 10/28/20 06:59 06:59 06:59 Intake Total 340 707 20 Output Total 975 650 Balance -635 57 20 Result Diagrams: 10/27/20 04:25 10/27/20 04:25 Additional Labs: Accuchecks 10/27/20 10/27/20 10/26/20 11:22 04:34 21:12 POC Glucose 200 H 178 H 236 H 10/26/20 10/25/20 16:43 17:05 POC Glucose 264 H 202 H Hospitalist ROS - Medication Medications: Active Medications Generic Name Dose Route Start Last Admin Trade Name Freq PRN Reason Stop Dose Admin Acetaminophen 650 mg 10/07/20 15:27 10/26/20 20:54 Acetaminophen 325 Mg Tab PO 650 mg Q4H PRN Administration Headache/Fever/Mild Pain (1-3) Albuterol Sulfate 2 puff 10/11/20 13:00 10/27/20 09:05 Albuterol 200 Puff (6.7gm Inhaler) INH Not Given [id number] MAY Amlodipine Besylate 10 mg 10/20/20 09:00 10/27/20 09:05 Amlodipine 10 Mg Tab PO Not Given DAILY MAY Ascorbic Acid 1,000 mg 10/08/20 09:00 10/27/20 09:05 Ascorbic Acid 500 Mg Chewable Tablet PO Not Given DAILY MAY Atorvastatin Calcium 10 mg 10/08/20 21:00 10/26/20 20:57 Atorvastatin Calcium 10 Mg Tab PO 10 mg HS MAY Administration Carvedilol 6.25 mg 10/13/20 17:00 10/27/20 09:05 Carvedilol 6.25 Mg Tab PO Not Given BID-WM MAY Cholecalciferol 1,000 units 10/08/20 09:00 10/27/20 09:06 Cholecalciferol 1,000 Units (25 Mcg) Tab PO Not Given DAILY MAY Enoxaparin Sodium 60 mg 10/12/20 21:00 10/27/20 07:41 Enoxaparin Sodium 60 Mg/0.6 Ml Syringe SC 60 mg MAY Administration Cefepime HCl 1 gm/ Sodium 100 mls @ 200 mls/hr 10/16/20 21:00 10/27/20 07:40 Chloride IVPB 100 mls MAY Administration Insulin Human Lispro 0 units 10/19/20 12:16 10/27/20 11:58 Humalog 300 Units/3 Ml Vial SC 2 unit .MILD SLIDING SCALE PRN Administration Mild Correctional Scale Insulin Human Lispro 0 units 10/22/20 21:17 10/26/20 21:27 Humalog 300 Units/3 Ml Vial SC 2 unit .BEDTIME SLIDING SC PRN Administration Bedtime Correctional Scale Labetalol HCl 10 mg 10/12/20 18:45 10/19/20 03:05 Labetalol Hcl 100 Mg/20 Ml Vial SLOW IVP 10 mg Q4H PRN Administration SBP GREATER THAN 160 Mometasone Furoate/Formoterol Fumar 2 puff 10/13/20 18:30 10/27/20 05:37 Mometasone 200 Mcg/Formoterol 5 Mcg 120 Puff Inhaler INH 2 puff BID-RT MAY Administration Ondansetron HCl 4 mg 10/08/20 08:52 10/09/20 12:14 Ondansetron Odt 4 Mg Tab PO 4 mg Q6H PRN Administration Nausea/Vomiting Pantoprazole Sodium 40 mg 10/13/20 09:00 10/27/20 07:41 Pantoprazole 40 Mg Vial IVP 40 mg DAILY MAY Administration Prednisone 20 mg 10/24/20 17:00 10/27/20 09:05 Prednisone 20 Mg Tab PO Not Given BID-WM [facility] Saccharomyces Boulardii 250 mg 10/11/20 09:00 10/27/20 09:05 Saccharomyces Boulardii 250 Mg Cap PO Not Given DAILY MAY Senna/Docusate Sodium 2 tab 10/08/20 08:52 10/27/20 13:00 Senokot S 8.6-50 Mg Tab PO 2 tab BIDPRN PRN Administration Constipation Sodium Chloride 10 ml 10/18/20 21:00 10/27/20 07:42 Flush - Normal Saline 10 Ml Syringe IVF 10 ml Q12HR MAY Administration Zinc Sulfate 220 mg 10/08/20 09:00 10/27/20 09:05 Zinc Sulfate 220 Mg Cap PO Not Given DAILY MAY Zolpidem Tartrate 5 mg 10/08/20 08:52 10/16/20 03:14 Zolpidem Tartrate 5 Mg Tab PO 5 mg HSPRN PRN Administration Insomnia Hospitalist Exam Vitals: Vital Signs (12 hours) Temp Pulse Resp BP Pulse Ox 10/27/20 11:40 97.6 F 103 H 36 H 103/56 L 88 L 10/27/20 09:40 97.6 F 113 H 28 H 126/74 95 10/27/20 09:05 106 H 10/27/20 07:50 97.6 F 106 H 24 H 117/74 95 10/27/20 06:47 91 L 10/27/20 06:00 86 22 H 140/75 92 L 10/27/20 04:00 97.6 F 82 16 101/50 L 92 L Weight Admit Weight 134 lb Weight 134 lb General Appearance: awake alert ENT: normocephalic atraumatic Neck: supple Gastrointestinal: soft Neurological: cranial nerve grossly intact, no focal deficits Hosp A/P - Plan Hosp A/P (1) Acute respiratory failure with hypoxia Code(s): J96.01 - ACUTE RESPIRATORY FAILURE WITH HYPOXIA Status: Acute (2) Pneumonia due to COVID-19 virus Code(s): U07.1 - COVID-19; J12.82 - PNEUMONIA DUE TO CORONAVIRUS DISEASE 2019 Status: Acute (3) Hyperlipidemia Code(s): E78.5 - HYPERLIPIDEMIA, UNSPECIFIED Status: Chronic (4) Hypertension Code(s): I10 - ESSENTIAL (PRIMARY) HYPERTENSION Status: Chronic Qualifiers: Hypertension type: essential hypertension Qualified Code(s): I10 - Essential (primary) hypertension 10/25/2020: Patient is a pleasant 80-year-old lady who was admitted to the [facility] on October 07, 2020 for acute hypoxic respiratory failure secondary to COVID-[address] angiogram of the chest was negative for pulmonary embolism she was started on apixaban to prevent thromboembolism patient did not qualify for remdesivir therapy. She received convalescent plasma. Patient was transitioned to high flow oxygen because of worsening oxygen requirements. She had to be transferred to [facility] and started on BiPAP subsequently. She was not tolerating BiPAP and wished to be DNR. She was seen by pulmonology service. She has had a fluctuating hospital course, and over the last 3 days she had been on high flow oxygen at various times as well as oxygen by nasal cannula. Currently, she is on high flow oxygen. Chest x-ray does not show any significant change compared to prior chest x-rays. 10/26: The patient was seen and examined. She is saturating well on 63% FiO2 on high flow nasal cannula. Continue anticoagulation and corticosteroids. 10/27: The patient is more hypoxic today. I increased her FiO2 to 60%. She would like to discuss her options with hospice. Palliative care consulted.
--- NOTE | 2020-10-27 16:50 | PDOC.DS.DS ---
Provider Date of Admission: 10/07/20 16:02 Date of Discharge: 10/27/20 Admitting Provider: Edgardo Damian MD Primary Care Physician: Diego Yi, DO Course Hospital Course: History on admission- The patient is a 80-year-old female who presented via the emergency department. Patient reports that she started feeling some mild headache and malaise in early August. She said she got tested and was initially negative but when her symptoms persisted she rechecked again on August 29 and was positive. She has been feeling ill since that time and has progressed somewhat. She has lost her taste and smell. She has had very poor appetite. She continues to have significant malaise and lethargy. She has sh ortness of breath and persistent low-grade fever. She reports she has felt better since being placed on the oxygen in the emergency department. Patient reports that she did see signature care last week and was placed on a steroid taper and a azithromycin pack. She could not tell that it made any difference for her at all. ED Course: In the emergency department the patient was mildly tachycardic. Her O2 sat was 91% on room air she was subsequently placed on nasal cannula oxygen and her O2 s at was 95% and her pulse was 108. She received 2 g of Rocephin and azithromycin was also ordered although I have recommended that not be given. She also received 1 L of normal saline. On admission patient had significantly elevated D-dimer, so we did a CT angiography which was negative for PE but did showing bilateral infiltration consistent with Covid pneumonia, we started Eliquis therapy to prevent thromboembolic for her, patient was not qualified for remdesivir therapy based on her symptoms onset, we treated her with vitamin supplementation, dexamethasone, While in hospital we did oxygen challenge test and she was qualified for home oxygen, with help of community case manager we arranged home oxygen on discharge, we have also provided Eliquis for at least 1 month to prevent thromboembolic event in view of inflammatory status due to Covid, patient will continue vitamin supplementation and dexamethasone to finish for total 10 days. Patient was plan for discharge and on the same day she had her condition started deteriorating, her oxygen saturation was not maintained with 3 L nasal cannula oxygen so we canceled her discharge, we observed overnight in next day and during nighttime patient developed high fever, she was requiring high flow oxygen, her condition rapidly deteriorated, Patient was not maintaining her oxygen saturations with high flow oxygen as well as she was tachycardic and tachypneic so we transferred her to [facility], we started on BiPAP, we did chest x-ray which showed Covid pneumonia, she has leukocytosis, patient was started on antibiotic as well as Lasix, Patient was not tolerating BiPAP so patient decided herself to be a DNR, patient was kept on high flow but with high flow oxygen herself oxygen saturation was not maintained, and patient was not tolerating BiPAP, 10/25/2020: Patient is a pleasant 80-year-old lady who was admitted to the [facility] on October 07, 2020 for acute hypoxic respiratory failure secondary to COVID-[address] angiogram of the chest was negative for pulmonary embolism she was started on apixaban to prevent thromboembolism patient did not qualify for remdesivir therapy. She received convalescent plasma. Patient was transitioned to high flow oxygen because of worsening oxygen requirements. She had to be transferred to [facility] and started on BiPAP subsequently. She was not tolerating BiPAP and wished to be DNR. She was seen by pulmonology service. She has had a fluctuating hospital course, and over the last 3 days she had been on high flow oxygen at various times as well as oxygen by nasal cannula. Currently, she is on high flow oxygen. Chest x-ray does not show any significant change compared to prior chest x-rays. 10/26: The patient was seen and examined. She is saturating well on 63% FiO2 on high flow nasal cannula. Continue anticoagulation and corticosteroids. 10/27: The patient is more hypoxic today. I increased her FiO2 to 60%. She would like to discuss her options with hospice. Palliative care consulted. Transitioned to Inpatient Hospice. Resuscitation Status: 10/13/20 12:58 Resuscitation Status Routine Co-Sign Provider: Resuscitation Status: DNAR: NO Resuscitation Discussed with: DNAR Additional comments: Confirmed with pateint family. Patient requesting. Lab Results: 10/27/20 04:25 10/27/20 04:25 Abnormal Lab Results - Last 48 hrs 10/26/20 05:49: WBC 19.6 H, RBC 4.10 L, Hgb 11.8 L, Hct 35.7 L, Neutrophils % 90.8 H, Lymphocytes % 5.8 L, Neutrophils # 17.8 H, Lymphocytes # 1.1 L, Monocytes # 0.6 H 10/27/20 04:25: WBC 21.3 H, RBC 3.41 L, Hgb 10.3 L, Hct 30.3 L, Neutrophils % (Manual) 85 H, Band Neuts % (Manual) 2 L, Lymphocytes % (Manual) 8 L 10/27/20 04:25: Sodium 133 L, Chloride 96 L, Carbon Dioxide 35 H, Anion Gap 7 L, BUN 31 H Microbiology - Entire Visit 10/07/20 13:25 Venous blood - Right Arm Blood Culture - Final NO GROWTH IN 5 DAYS 10/07/20 13:25 Venous blood - Right Arm Blood Culture - Final NO GROWTH IN 5 DAYS Vitals: Vital Signs (12 hours) Temp Pulse Resp BP Pulse Ox 10/27/20 14:30 97.5 F L 104 H 38 H 96/60 95 10/27/20 11:40 97.6 F 103 H 36 H 103/56 L 88 L 10/27/20 09:40 97.6 F 113 H 28 H 126/74 95 10/27/20 09:05 106 H 10/27/20 07:50 97.6 F 106 H 24 H 117/74 95 10/27/20 06:47 91 L 10/27/20 06:00 86 22 H 140/75 92 L Weight Admit Weight 134 lb Weight 134 lb Physical Exam: The patient was seen and examined on the day of discharge. Plan Prescriptions: Albuterol Sulfate [Proventil Hfa] 2 puff INH [id number] PRN #1 aer PRN Reason: Wheezing Dexamethasone 6 mg PO DAILY #7 tablet Apixaban [Eliquis] 2.5 mg PO BID #60 tab Benzonatate [Tessalon] 100 mg PO Q6H PRN #30 cap PRN Reason: Cough Ascorbic Acid [Vitamin C] 1,000 mg PO DAILY #30 tab Zinc Sulfate 220 mg PO DAILY #14 cap Home Medications: Medication Instructions Recorded Confirmed Type Cholecalciferol (Vitamin D3) 1 tab PO DAILY 10/07/20 10/07/20 History [Vitamin D3] Olmesartan Medoxomil [Benicar] 1 tab PO DAILY 10/07/20 10/07/20 History Pravastatin Sodium [Pravachol] 1 tab PO DAILY 10/07/20 10/07/20 History cloNIDine HCl 1 tab PO BID 10/07/20 10/07/20 History Albuterol Sulfate [Proventil Hfa] 2 puff INH [id number] PRN #1 aer 10/09/20 Rx Apixaban [Eliquis] 2.5 mg PO BID #60 tab 10/09/20 Rx Ascorbic Acid [Vitamin C] 1,000 mg PO DAILY #30 tab 10/09/20 Rx Benzonatate [Tessalon] 100 mg PO Q6H PRN #30 cap 10/09/20 Rx Dexamethasone 6 mg PO DAILY #7 tablet 10/09/20 Rx Zinc Sulfate 220 mg PO DAILY #14 cap 10/09/20 Rx Allergies: No Known Allergies Allergy (Verified 10/07/20 16:19) Discharge Instructions:: DC to inpatient hospice. Activity:: Activity as Tolerated Nourishment:: Heart Healthy Diet Therapies:: Not Applicable Equipment/Supplies:: Oxygen IV Therapy:: Not Applicable Referrals: [facility] [facility] [Outside] Davon Yi DO [Primary Care Provider] - Disposition: HOSPICE MEDICAL FACILITY Quality CORE MEASURES:: N/A
[2020-10-27 19:06] VITALS: BP 112/65; TEMP 96.3
--- NOTE | 2020-10-30 23:11 | PQF ---
CLINICAL DOCUMENTATION CLARIFICATION FORM: Dear : Monica Almaraz Date / Time: 10/31/2020 Please exercise your independent, professional judgment in responding to the clarification form. Clinical indicators are provided on the bottom of this form for your review Diagnosis: Sepsis Present on Admission (POA): [ > ] Yes [ ] No [ ] Unable to determine To be completed by CDI/Coding staff for physician review: Present Clinical Indicators - Signs / Symptoms / Labs Results and Location in Medical Record [ x ] In the emergency department, patient was mildly tachycardic. Her o2 sat was 91% on room air and pulse was 108. Received 2 g of Rocephin and azithromycin H and P [ x ] Respiratory rates were 22, 28 and 24. Pulse 108, 103 and 87. Blood pressures were 152/73, 179/88, 174/91 and 152/89 ED provider notes [ x ] WBCs were 11.7 on 10/07, 18.2 on 10/11, 26.4 on 10/13, 20.8 on 10/14 and 12.6 on 10/18 Laboratory [ x ] Lactic acid 2.3. C-reactive protein is 20.94 Laboratory [ x ] Sepsis with acute organ dysfunction. Patient has sepsis criteria, started empiric antibiotic cefepime and azithromycin to cover bacterial superinfection Progress note 10/11/20 by Marta Lin Present Risk Factors Results and Location in Medical Record [ x ] Covid 19 pneumonia, acute hypoxic respiratory failure Progress note 10/11/20 by Marta Lin [ x ] Bacterial pneumonia Progress note 10/15/20 by Josue Lua Present Treatments Results and Location in Medical Record [ x ] IV azithromycin and IV Rocephin Medications [ x ] IV fluids 10/07/20 to 10/27/20 Medications [ x ] Daily CBCs Laboratory [ ] CDS/Grain Inspector Signature: [id number] Phone #: Date/Time: 10/31/2020 This is a permanent part of the Medical Record [facility]
== END 2020-10-27 16:56 | disposition hospice, inpatient (51) | DRG 871 ==
LOC: ERS 11:30 → T4-B 16:02 → OBSVTOIN 16:02 → CCU 10-12 21:26 → T4-B 10-12 21:42 → 2SE 10-12 23:34
PROVIDERS: ADMIT Internal Medicine; ATTEND Internal Medicine
PROC: XW13325 Transfusion of Convalescent Plasma (Nonautologous) into Peripheral Vein, Percutaneous Approach, New Technology Group 5 (ICD-10-PCS; principal; 2020-10-12)
PROC: 5A09457 Assistance with Respiratory Ventilation, 24-96 Consecutive Hours, Continuous Positive Airway Pressure (ICD-10-PCS; 2020-10-13)
DX: A41.9 Sepsis, unspecified organism (principal); U07.1 COVID-19; J12.82 Pneumonia due to coronavirus disease 2019; J96.01 Acute respiratory failure with hypoxia; J15.9 Unspecified bacterial pneumonia; J93.83 Other pneumothorax; Z66 Do not resuscitate; Z51.5 Encounter for palliative care; R65.20 Severe sepsis without septic shock; E78.5 Hyperlipidemia, unspecified; R79.89 Other specified abnormal findings of blood chemistry; I11.0 Hypertensive heart disease with heart failure; I50.9 Heart failure, unspecified; Z90.49 Acquired absence of other specified parts of digestive tract; Z79.899 Other long term (current) drug therapy; Z98.49 Cataract extraction status, unspecified eye
CPT/HCPCS: 36415; 36416; 36430; 71045; 71275; 80048; 80053; 81001; 82728; 83605; 83735; 83880; 84100; 84145; 84484; 85025; 85379; 86140; 86769; 86850; 86900; 86901; 87040; 87635; 93005; 94660; 94664; 94760; 96365; 96372; 96375; 96376; C9113; G0378; J0360; J0456; J0692; J0696; J1100; J1650; J1815; J1940; J2920; J3490; J7050; J7512; P9017; Q0162; Q9967; U0003; U0005

== ENCOUNTER 2020-10-27 17:15 | Inpatient (IN) | payer OTHER ==
[2020-10-27] MEDS ORDERED: Morphine 2 MG/ML VIAL SLOW IVP PRN ×2 (18:06→21:16)
[2020-10-27] MEDS ORDERED: Haloperidol Lactate 5 MG/ML VIAL SLOW IVP PRN ×2 (18:15→21:16)
[2020-10-27] MEDS ORDERED: Scopolamine 1.5 mg/72 hour Patch TOP PRN (18:15)
[2020-10-27] MEDS ORDERED: Ondansetron PF 4 MG/2 ML Vial IVP PRN ×2 (18:15→21:15)
[2020-10-27] MEDS ORDERED: Lorazepam 2 MG/ML VIAL ONE ×2 (18:16→19:25)
[2020-10-27] MEDS: Morphine 4 MG/ML VIAL SLOW IVP SCH ×4 (18:26→23:30)
[2020-10-27] MEDS: Lorazepam 2 MG/ML VIAL SLOW IVP SCH ×2 (18:30→19:27)
[2020-10-27] MEDS ORDERED: Lorazepam 2 MG/ML VIAL SLOW IVP PRN ×2 (19:29→21:17)
[2020-10-27] MEDS ORDERED: Lorazepam 2 MG/ML VIAL SLOW IVP SCH ×3 (19:30→23:00)
[2020-10-27 19:42] VITALS: BMI 23.7
[2020-10-27 19:44] VITALS: BP 87/48; TEMP 96.3
[2020-10-28] MEDS ORDERED: Lorazepam 2 MG/ML VIAL SLOW IVP SCH (01:00)
[2020-10-28] MEDS ORDERED: FLU VACC QS2020-21(65YR UP)/PF 240 MCG/0.7 ML SYRINGE IM ONE (09:00)
== END 2020-10-28 01:15 | disposition expired | DRG 951 ==
LOC: 2SE 17:15
PROVIDERS: ADMIT Family Medicine; ATTEND Family Medicine
DX: Z51.5 Encounter for palliative care (principal); J96.01 Acute respiratory failure with hypoxia; J12.82 Pneumonia due to coronavirus disease 2019; U07.1 COVID-19; Z66 Do not resuscitate; I10 Essential (primary) hypertension; E78.5 Hyperlipidemia, unspecified; R43.2 Parageusia; Z79.899 Other long term (current) drug therapy; Z90.49 Acquired absence of other specified parts of digestive tract; Z98.49 Cataract extraction status, unspecified eye; Z82.3 Family history of stroke
CPT/HCPCS: J2060; J2270